=== PATIENT | male | born 1960 | race Caucasian/White ===

== ENCOUNTER → 2017-11-13 13:11 | Outpatient (CLI) | payer OTHER, SELFPAY ==
--- NOTE | 2017-11-13 | DI.US.S_ITS ---
PROCEDURE: US RENAL COMPLETE INDICATIONS: BLADDER NECK OBSTRUCTION TECHNIQUE: Real-time scanning was performed of the kidneys and bladder, with image documentation. COMPARISON: None. FINDINGS: Kidneys: Kidneys are normal in size. Right kidney measures 12.4 cm long; left kidney measures 14 cm long. Right renal cortical thickness is 1.5 cm; left renal cortical thickness is 1.7 cm. Renal cortical echotexture is normal. No hydronephrosis or nephrolithiasis. No suspicious solid mass lesions. 1 cm right renal cyst. Bladder: Pre-void bladder volume is 161 mL. Post-void residual is 4.0 mL. Pre-void images demonstrate no intraluminal masses or stones. On pre-void images, neither ureteral jets are noted with color Doppler interrogation. (Of note, ureteral jets may not be detectable in up to 25% of cases due to insufficient differences in specific gravity between ureteral and bladder urine). Miscellaneous: No free pelvic fluid. IMPRESSION: 1. 1 cm right renal cortical cyst otherwise kidneys are grossly normal in appearance. 2. No evidence for bladder outlet obstruction. Dictated by: Tobias Moura [facility] Interpreted: Yue Mcclain MD on 11/13/2017 at 14:50 Approved by: Yue Mcclain MD, PhD on 11/13/2017 at 15:58
== END ==
PROVIDERS: Family Provider Nutritionist; PCP Nutritionist; Visit Provider Nurse Practitioner Acute Care
DX: N32.0 Bladder-neck obstruction (principal); N28.1 Cyst of kidney, acquired
CPT/HCPCS: 76770

== ENCOUNTER 2020-03-15 16:53 | Emergency (ER) | payer OTHER, SELFPAY ==
[2020-03-15 17:01] VITALS: PULSE 72; RESP 24; TEMP 36.6; O2SAT 94; BMI 50.2
[2020-03-15 17:02] VITALS: PULSE 74; O2SAT 95
--- NOTE | 2020-03-15 17:05 | DI.RAD.S_ITS ---
PROCEDURE: XR CHEST 1V INDICATIONS: shortness of breath TECHNIQUE: One view of the chest was acquired. COMPARISON: [facility], , CHEST 2VW, 05/30/2013, 16:24. [facility], , CHEST 2 VIEW, 04/01/2012, 20:10. [facility], , CHEST 2 VIEW, 04/09/2014, 13:11. [facility], , CHEST 1 VIEW, 01/16/2017, 12:44. FINDINGS: Surgical changes and devices: None. Lungs and pleura: Low lung volumes are noted. This causes a crowded appearance to the lung markings and limits evaluation. Generalized interstitial prominence is seen. Mediastinum: Mediastinal contours appear normal. Heart size is moderately enlarged. Bones and chest wall: No suspicious bony lesions. Age-appropriate bony degenerative changes are seen. Overlying soft tissues appear unremarkable. IMPRESSION: Moderate cardiomegaly and interstitial prominence. Please correlate with patient presentation, physical examination findings, and laboratory values for congestive heart failure. Dictated by: Thanh Serrano M.D. on 03/15/2020 at 16:32 Approved by: Thanh Serrano M.D. on 03/15/2020 at 16:34
[2020-03-15 17:14] LABS: Add Manual Diff / Slide Review NO; Basophils Absolute Auto 100 /uL (0-100); Basophils Percent Auto 1.2 % (0-2); Eosinophils Absolute Auto 200 /uL (0-450); Eosinophils Percent Auto 2.5 % (2-4); Hematocrit 43.7 % (41-53); Hemoglobin 14.2 g/dL (13.5-17.5); Lymphocytes Absolute Auto 1200 /uL (1100-4500); Lymphocytes Percent Auto 14.6 % (25-40); Mean Corpuscular HGB Conc 32.5 % (30-36); Mean Corpuscular Hemoglobin 28.5 PG (26-34); Mean Corpuscular Volume 87.7 fL (80-100); Monocytes Absolute Auto 600 /uL (0-900); Monocytes Percent Auto 6.6 % (3-14); Neutrophils Absolute Auto 6200 /uL (1500-7000); Neutrophils Percent Auto 75.1 % (50-75); Platelet Count 240 X10^3/uL (150-400); Red Blood Cell Count 4.98 X10^6/uL (4.5-5.9); Red Cell Distribution Width 15.1 % (11.6-14.8); White Blood Cell Count 8.3 X10^3/uL (4.5-11.0)
[2020-03-15 17:39] LABS: INR 1.2 (0.9-1.3); Prothrombin Time 13.7 SECONDS (10.1-12.7)
[2020-03-15 17:42] LABS: PTT Partial Thromboplastin Tim 32 SECONDS (26.4-36.2)
[2020-03-15 17:44] LABS: Alanine Aminotransferase 44 IU/L (<50); Albumin Globulin Ratio 1.2 (1.0-2.8); Alkaline Phosphatase 141 U/L (38-126); Aspartate Aminotransferase 45 IU/L (17-59); BUN Creatinine Ratio 14.5 (6-22); Bilirubin Total 0.4 mg/dL (0.2-1.3); Blood Urea Nitrogen 33 mg/dL (9-20); Calcium 9.3 mg/dL (8.4-10.2); Carbon Dioxide 30 mmol/L (22-32); Chloride 103 mmol/L (98-107); Creatine Kinase 85 U/L (55-170); Estimated Glomerular Filt Rate 29.4 mL/min (>60); Globulin 3.3 g/dL (1.7-4.1); Glucose 228 mg/dL (80-110); HEMOLYSIS < 15 (0-50); Potassium 3.9 mmol/L (3.4-5.1); Sodium 137 mmol/L (137-145); Total Protein 7.3 g/dL (6.3-8.2)
--- NOTE | 2020-03-15 17:47 | ED_ITS ---
HPI - SOB/Dyspnea General Chief Complaint: Shortness of Breath/Dyspnea Stated Complaint: BILATERAL LOWER LEG / FEET SWELLING Time Seen by Provider: 03/15/20 17:05 Source: patient Mode of arrival: Ambulatory Limitations: no limitations History of Present Illness HPI Narrative: Patient is a 59-year-old male with history of congestive heart failure, hypertension who presents with increasing shortness of breath and lower extremity swelling. He says over the last week he has had increasing shortness of breath with exertion and he feels like his legs are much more swollen than normal. He says he takes Lasix 2 pills once a day he takes some at night. He called his doctor today who recommended he come to the ER for further evaluation. He denies any chest pain or heart palpitations. He has not had any fever or cough. He does not weigh himself daily he is unsure if he has any fluid retention. MD Complaint: shortness of breath Onset (ago): week(s) (1) Exacerbating factors: lying flat and exertion Known history of: congestive heart failure Related Data Home Medications Medication Instructions Recorded Confirmed allopurinol 100 mg PO DAILY 03/15/20 03/15/20 atenolol 50 mg PO DAILY 03/15/20 03/15/20 diltiazem HCl 240 mg PO DAILY 03/15/20 03/15/20 furosemide 80 mg PO DAILY 03/15/20 03/15/20 Allergies Allergy/AdvReac Type Severity Reaction Status Date / Time lisinopril [LISINOPRIL] Allergy Unknown COUGH Unverified 03/15/20 17:03 aspirin [ASPIRIN] AdvReac Severe IN ACUTE Unverified 03/15/20 17:03 RENAL FAILURE ibuprofen [From MOTRIN] AdvReac Severe IN ACUTE Unverified 03/15/20 17:03 RENAL Review of Systems Review of Systems Narrative: GENERAL: Denies chills, fatigue, malaise, fever, sweats, travel HEENT: Denies sinus pain, ear pain, sore throat, difficulty swallowing, neck pain RESPIRATORY: See HPI CARDIOVASCULAR: Denies chest pain, palpitations, orthopnea, edema GASTROINTESTINAL: Denies nausea, vomiting, abdominal pain, diarrhea, constipation, melena. : Denies dysuria, frequency, incontinence, hematuria, urinary retention, flank pain. MUSCULOSKELETAL: + edema see HPI. Denies weakness, joint pain, or bony pain SKIN: No rash, no erythema, no pruritus NEUROLOGIC: Denies weakness, dizziness, headache, numbness, change in speech, confusion PSYCHIATRIC: No concerning psychosocial issues. 12 point review of systems is negative except for those stated above and HPI Patient History Substance Use Type: does not use Exam Initial Vital Signs Initial Vital Signs: Vital Signs Temperature 97.8 F 03/15/20 17:01 Pulse Rate 72 03/15/20 17:01 Respiratory Rate 24 03/15/20 17:01 Pulse Oximetry 94 03/15/20 17:01 GENERAL: Overweight male and in no acute distress. HEENT: Head atraumatic,EOMI, pupils reactive, face symmetric, moist mucous membranes CARDIOVASCULAR: Regular rate and rhythm without murmurs, rubs or gallops. RESPIRATORY: Clear breath sounds bilaterally speaks in full sentences ABDOMEN: Soft, nontender. Normoactive bowel sounds all 4 quadrants. No guarding or rebound. EXTREMITIES: Normal range of motion, no clubbing or edema. Neurovascularly intact NEUROLOGICAL: Alert and oriented x4.Normal gait and speech. Cranial nerves II through XII grossly intact. SKIN: Warm, dry, no laceration, no petechiae, no rashes or lesions. Scores CHADS-VASc Congestive heart failure: yes Hypertension: yes Age 75 years or older: no Diabetes mellitus: no Stroke, TIA, or TE: no Vascular disease: no Age 65 to 74 years: yes Sex category (female): Male CHADS-VASc Score: 3 Course Orders Ordered: ED Orders 03/15/20 17:05 XR chest 1V Stat Complete Blood Count AUTO DIFF Stat Comprehensive Metabolic Panel Stat Lipase Stat NT-proBNP (BNP-Adult 18+) Stat Partial Thromboplastin Time Stat Prothrombin Time INR Stat Troponin & CK Cardiac Panel Stat EKG-12 Lead Stat Discontinued Medications Furosemide (Furosemide 100 Mg/10 Ml Vial) 80 mg IV NOW ONE Stop: 03/15/20 17:59 Last Admin: 03/15/20 18:09 Dose: 80 mg Documented by: BENIGNO Vital Signs Vital signs: Vital Signs - 8 hr 03/15/20 17:01 03/15/20 17:02 03/15/20 18:27 Temperature 97.8 F Pulse Rate 72 74 Respiratory Rate 24 Blood Pressure 172/98 H Pulse Oximetry 94 95 MDM - SOB/Dyspnea Lab Data Attestation: I reviewed the patient's lab results. Result diagrams: 03/15/20 17:05 03/15/20 17:05 Labs: Lab Results 03/15/20 03/15/20 03/15/20 Range/Units 17:05 17:05 17:05 WBC 8.3 (4.5-11.0) X10^3/uL RBC 4.98 (4.5-5.9) X10^6/uL Hgb 14.2 (13.5-17.5) g/dL Hct 43.7 (41-53) % MCV 87.7 (80-100) fL MCH 28.5 (26-34) PG MCHC 32.5 (30-36) % RDW 15.1 H (11.6-14.8) % Plt Count 240 (150-400) X10^3/uL Neut % (Auto) 75.1 H (50-75) % Lymph % (Auto) 14.6 L (25-40) % Cascade % (Auto) 6.6 (3-14) % Eos % (Auto) 2.5 (2-4) % Baso % (Auto) 1.2 (0-2) % Neut # (Auto) 6200 (3428-1076) /uL Lymph # (Auto) 1200 (9612-0211) /uL Cascade # (Auto) 600 (0-900) /uL Eos # (Auto) 200 (0-450) /uL Baso # (Auto) 100 (0-100) /uL PT 13.7 H (10.1-12.7) SECONDS INR 1.2 (0.9-1.3) APTT 32 (26.4-36.2) SECONDS Sodium 137 (137-145) mmol/L Potassium 3.9 (3.4-5.1) mmol/L Chloride 103 (98-107) mmol/L Carbon Dioxide 30 (22-32) mmol/L BUN 33 H (9-20) mg/dL Creatinine 2.28 H (0.66-1.25) mg/dL Estimated GFR 29.4 L (>60) mL/min BUN/Creatinine Ratio 14.5 (6-22) Glucose 228 H (80-110) mg/dL Calcium 9.3 (8.4-10.2) mg/dL Total Bilirubin 0.4 (0.2-1.3) mg/dL AST 45 (17-59) IU/L ALT 44 (<50) IU/L Alkaline Phosphatase 141 H (38-126) U/L Total Creatine Kinase 85 (55-170) U/L CK-MB (CK-2) TNP CK-MB (CK-2) Rel Index TNP Troponin I < 0.012 (0.01-0.034) ng/mL NT-Pro-B Natriuret Pep 2390 H (<125) pg/mL Total Protein 7.3 (6.3-8.2) g/dL Albumin 4.0 (3.5-5.0) g/dL Globulin 3.3 (1.7-4.1) g/dL Albumin/Globulin Ratio 1.2 (1.0-2.8) Lipase 330 H (23-300) U/L Imaging Data Chest x-ray: Radiologist's Impression: PROCEDURE: XR CHEST 1V INDICATIONS: shortness of breath TECHNIQUE: One view of the chest was acquired. COMPARISON: [facility], , CHEST 2VW, 05/30/2013, 16:24. [facility], CHEST 2 VIEW, 04/01/2012, 20:10. [facility], CHEST 2 VIEW, 04/09/2014, 13:11. [facility], CHEST 1 VIEW, 01/16/2017, 12:44. FINDINGS: Surgical changes and devices: None. Lungs and pleura: Low lung volumes are noted. This causes a crowded appearance to the lung markings and limits evaluation. Generalized interstitial prominence is seen. Mediastinum: Mediastinal contours appear normal. Heart size is moderately enlarged. Bones and chest wall: No suspicious bony lesions. Age-appropriate bony degenerative changes are seen. Overlying soft tissues appear unremarkable. IMPRESSION: Moderate cardiomegaly and interstitial prominence. Please correlate with patient presentation, physical examination findings, and laboratory values for c ongestive heart failure. Dictated by: Thanh Serrano M.D. on 03/15/2020 at 16:32 ECG Data Attestation: I personally reviewed and interpreted this ECG as follows: Prior ECG tracings: available for review Interpretation: Atrial fibrillation rate 73 similar to previous EKG MDM Narrative Medical decision making narrative: Patient is found to have elevated BNP increasing shortness of breath increasing lower extremity edema with CHF changes on x-ray. Likely CHF exacerbation though he has not been diagnosed with CHF. He is given a dose of 80 mg of Lasix and IV and urinated multiple times. He is not hypoxic. At this time he can follow up outpatient. EKG does show atrial fibrillation which is new since 2017. He is unfamiliar with diagnosis of atrial fibrillation. I do recommend that he take an aspirin for anticoagulation follow-up with primary care provider. Discharge Plan Departure Patient Disposition: Home Clinical Impression: Congestive heart failure Qualifiers: Heart failure type: other Qualified Code(s): I50.9 - Heart failure, unspecified Instructions: Atrial Fibrillation, DI for Heart Failure Activity Restrictions/Additional Instructions: *You have been diagnosed with congestive heart failure *What to do: Please weigh yourself every day and write it down seems until when you are starting to gain water weight. Limit your salt and processed food intake-this will lead to water retention. *Continue to take medications as directed -aspirin 81 mg once a day, you may require more medication than this but please discuss it with her primary care provider Increase Lasix 80mg twice a day for the next 3 days. Then return to your normal dose of 80mg. *Follow up with your primary care provider in 2-3 days *Return to ER if you should have increasing shortness of breath, chest pain lower extremity swelling or any new, worsening or concerning symptoms Prescriptions: No Action furosemide 40 mg tablet 80 mg PO DAILY RF: 0 diltiazem HCl 240 mg capsule,extended release 24 hr 240 mg PO DAILY RF: 0 allopurinol 100 mg Tablet 100 mg PO DAILY RF: 0 atenolol 50 mg tablet 50 mg PO DAILY RF: 0 Referrals: Mindi Whitt MD [Primary Care Provider] -
[2020-03-15 17:56] LABS: NT-proBNP (BNP-Adult 18+) 2390 pg/mL (<125); Troponin I < 0.012 ng/mL (0.01-0.034)
[2020-03-15 18:07] LABS: Lipase 330 U/L (23-300)
[2020-03-15] MEDS: FUROSEMIDE 100 MG/10 ML VIAL 80 MG IV (18:09)
[2020-03-15 18:27] VITALS: BP 172/98
[2020-03-15 19:33] VITALS: BP 169/94; PULSE 76; RESP 22; O2SAT 96
== END 2020-03-15 19:36 | disposition home or self-care (01) ==
PROVIDERS: Emergency Provider Emergency Medicine; Family Provider Nutritionist; PCP Nutritionist
DX: I50.9 Heart failure, unspecified (principal); I10 Essential (primary) hypertension; E66.3 Overweight; R06.02 Shortness of breath
CPT/HCPCS: 36415; 71045; 80053; 82550; 83690; 83880; 84484; 85025; 85610; 85730; 93005; 96374; 99283; 99284; J1940

== ENCOUNTER → 2020-09-22 15:13 | Outpatient (CLI) | payer MEDICARE, SELFPAY ==
[2020-09-22 15:22] LABS: Bacteria Urine None Seen
[2020-09-22 17:43] LABS: Appearance Urine UA CLEAR; Bilirubin Urine UA NEGATIVE (NEGATIVE); Color Urine UA YELLOW; Glucose Urine UA NEGATIVE (Negative); Ketones Urine UA NEGATIVE (NEGATIVE); Leukocyte Esterase Urine UA NEGATIVE (NEGATIVE); Nitrite Urine UA NEGATIVE (Negative); Occult Blood Urine UA NEGATIVE (Negative); Protein Urine UA 3+ (Negative); Specific Gravity Urine UA 1.025 (1.000-1.035); Urobilinogen Urine UA 0.2 E.U./dL (0.2)
[2020-09-22 17:56] LABS: Culture Indicated Urine Cult Not Indicated; Hyaline Casts Urine 5-10/LPF; RBC Urine 0-1/HPF (0-5/HPF); Squamous Epithelial Cell Urine 1-5 /HPF (0-5/HPF); WBC Urine 0-1/HPF (0-5/HPF)
== END ==
PROVIDERS: Family Provider Nutritionist; PCP Student in an Organized Health Care Education/Training Program; Referring Provider Student in an Organized Health Care Education/Training Program; Visit Provider Student in an Organized Health Care Education/Training Program
DX: R30.0 Dysuria (principal)
CPT/HCPCS: 81001

== ENCOUNTER → 2020-10-13 16:35 | Outpatient (CLI) | payer OTHER, MEDICARE, SELFPAY ==
[2020-10-13 18:08] LABS: BUN Creatinine Ratio 14.4 (6-22); Blood Urea Nitrogen 29 mg/dL (9-20); Calcium 9.9 mg/dL (8.4-10.2); Carbon Dioxide 27 mmol/L (22-32); Chloride 106 mmol/L (98-107); Estimated Glomerular Filt Rate 34.1 mL/min (>60); Glucose 185 mg/dL (80-110); HEMOLYSIS < 15 (0-50); Potassium 3.9 mmol/L (3.4-5.1); Sodium 139 mmol/L (137-145)
[2020-10-20 13:16] LABS: Testosterone % Fr + Wkly bound 29.9 % (9.0-46.0); Testosterone Fr+Wkly bound 43.1 ng/dL (40.0-250.0); Testosterone, Total 144.2 ng/dL (264.0-916.0)
== END ==
PROVIDERS: Family Provider Nutritionist; PCP Student in an Organized Health Care Education/Training Program; Referring Provider Student in an Organized Health Care Education/Training Program; Visit Provider Student in an Organized Health Care Education/Training Program
DX: R53.83 Other fatigue (principal); Z79.899 Other long term (current) drug therapy
CPT/HCPCS: 36415; 80048; 84403

== ENCOUNTER → 2020-10-20 08:03 | Outpatient (CLI) | payer MEDICARE, OTHER, SELFPAY ==
--- NOTE | 2020-10-20 08:05 | DI.ECHO.S_ITS ---
[facility]---------+ [facility] +---------+ : : [address] : [place] : : : : [id number] : : : : Phone: [phone] Echocardiogram Report + + :Name: YDUELKA CONRAD Study Date: 10/20/2020 Height: 70 in : :[facility] ReadingLocation: Weight: 309 lb : : Gender: Male BSA: 2.5 m2 : :: 1960 Age: 59 yrs BP: 165/111 mmHg: :Reason For Study: CONGESTIVE HEART FAILURE : :Ordering Physician: TERRI, : :RAH Performed By: Yolanda Wells : :Referring: RAH MURRAY : + + Interpretation Summary The ejection fraction is estimated to be 60-65%. There are no obvious focal wall motion abnormalities noted but poor endocardial definition reduces the sensitivity for the detection of such. There is no significant valvular heart disease. Procedure: A two-dimensional transthoracic echocardiogram with color flow and Doppler was performed in limited views only. The study quality was technically difficult. Comparison is made with the echocardiogram of 04/02/2012. The patient was in atrial fibrillation with heart rates between 77-94 bpm during the exam. Left Ventricle: The left ventricle is normal in size. There is mild concentric left ventricular hypertrophy. The ejection fraction is estimated to be 60-65%. There are no obvious focal wall motion abnormalities noted but poor endocardial definition reduces the sensitivity for the detection of such. Diastolic function could not be accurately assessed due to atrial fibrillation. Right Ventricle: The right ventricle is not well visualized but appears grossly normal in function. Atria: The left atrial size is normal. Right atrial size is normal. There is no Doppler evidence for an interatrial shunt. Mitral Valve: The mitral valve leaflets appear mildly thickened, but open well. There is mild mitral annular calcification. There is no mitral regurgitation noted. Aortic Valve: The aortic valve is grossly normal. There is no aortic valve stenosis. No aortic regurgitation is present. Tricuspid Valve: The tricuspid valve is not well visualized, but is grossly normal. No tricuspid regurgitation. Pulmonary artery pressures cannot be estimated because of the lack of a measurable TR jet velocity but the IVC suggests a CVP of around 3 mmHg. Pulmonic Valve: The pulmonic valve is not well seen, but is grossly normal. There is no pulmonic valvular regurgitation. Great Vessels: The aortic root is not well visualized but is probably normal size. The dimensions of the ascending aorta are normal. The IVC is of normal diameter and collapses greater than 50% with a sniff. This suggests a low right atrial pressure of 3 mm Hg. Pericardium/ Pleura There is no pericardial effusion. There is no pleural effusion. MMode/2D Measurements & Calculations LVIDd: 4.1 cm LVOT diam: 2.3 cm LVIDs: 3.0 cm asc Aorta Diam: 3.2 cm FS: 25.9 % Ao Arch Diam (Prox Trans): 2.8 cm IVSd: 1.3 cm LVPWd: 1.4 cm LV vasquez. diameter/BSA (cm/m^2): 1.6 LV sys. diameter/BSA (cm/m^2): 1.2 LA A2 area: 22.9 cm2 RA long axis: 5.3 cm LA A4 area: 28.6 cm2 RA area: 18.4 cm2 LA length (vol): 6.9 cm RA vol: 54.5 ml LA vol: 80.6 ml RA : 21.7 ml/m2 LA vol index: 32.1 ml/m2 IVC diam: 1.4 cm Doppler Measurements & Calculations Ao V2 max: 148.7 cm/sec LVOT Max Juan: 84.9 cm/sec Ao V2 mean: 115.4 cm/sec LV V1 max P.9 mmHg Ao max P.9 mmHg LV V1 VTI: 15.2 cm Ao mean P.7 mmHg JEANETTE(I,D): 2.5 cm2 Ao V2 VTI: 24.4 cm JEANETTE(V,D): 2.3 cm2 sev ratio: 0.62 JEANETTE indexed to BSA (cm^2/m^2): 1.00 MV E max juan: 86.1 cm/sec PA V2 max: 102.3 cm/sec MV A max juan: 2.1 cm/sec PA V2 mean: 67.7 cm/sec MV E/A: 40.5 PA mean P.1 mmHg Med Peak E' Juan: 7.7 cm/sec PA pr(Accel): 31.0 mmHg E/E' med: 11.2 Lat Peak E' Juan: 7.9 cm/sec E/E' lat: 10.8 E/e' average: 11.0 MV dec time: 0.19 sec SV(LVOT): 61.3 ml Reading Physician:10:02 AM
== END ==
PROVIDERS: Family Provider Nutritionist; PCP Student in an Organized Health Care Education/Training Program; Referring Provider Student in an Organized Health Care Education/Training Program; Visit Provider Student in an Organized Health Care Education/Training Program
DX: I50.9 Heart failure, unspecified (principal)
CPT/HCPCS: 93306

== ENCOUNTER 2020-12-06 10:39 | Emergency (ER) | payer MEDICARE, OTHER, SELFPAY ==
[2020-12-06 10:52] VITALS: BP 166/111; PULSE 94; RESP 20; TEMP 36.7; O2SAT 99; BMI 42.7
[2020-12-06 12:28] VITALS: PULSE 87; O2SAT 98
[2020-12-06 12:30] VITALS: PULSE 75; O2SAT 97
[2020-12-06 12:31] VITALS: BP 140/99; PULSE 74; O2SAT 97
[2020-12-06 13:00] VITALS: PULSE 84; O2SAT 97
[2020-12-06 13:01] VITALS: BP 183/107; PULSE 83; O2SAT 97
--- NOTE | 2020-12-09 14:42 | ED_ITS ---
HPI - Recheck/Abnormal Lab/Rx <Jacob Elizabeth PA-C - Last Filed: 12/09/20 14:57> General Chief Complaint: Recheck/Abnormal Lab/Rx Stated Complaint: 180/130 BP, Toe Nail Fungus Time Seen by Provider: 12/06/20 12:37 Source: patient Mode of arrival: Ambulatory Limitations: no limitations History of Present Illness HPI narrative: 60-year-old male with past medical history CHF with preserved ejection fraction, stage 3 chronic kidney disease, anxiety, hypertension presents to the ED for elevated blood pressure, toenail infection. [facility], had an elevated blood pressure reading with SBP in the 180s. Patient states he is compliant with his blood pressure medications. patient also states that he has had chronic toenail infection, for which he was treated sometime ago without resolution. Patient complains of pain in his toenails wiith pressure. patient denies fever, chills, chest pain, shortness of breath, cough, dysuria, abdominal pain, nausea, vomiting, lightheadedness, dizziness, syncope. Related Data Home Medications Medication Instructions Recorded Confirmed atenolol 50 mg tablet 50 mg PO DAILY 03/15/20 10/13/20 diltiazem HCl 240 mg capsule,24 240 mg PO DAILY 03/15/20 10/13/20 hr,extended release furosemide 40 mg tablet 80 mg PO DAILY 03/15/20 10/13/20 clobetasol 0.05 % topical ointment 1 applic TOPICAL BID g 10/13/20 10/13/20 fluconazole 100 mg tablet 100 mg PO QWEEK tab 10/13/20 10/13/20 Previous Rx's Medication Instructions Recorded testosterone cypionate 200 mg/mL 200 mg IM Q4W #10 ml 11/01/20 intramuscular oil allopurinol 100 mg tablet 100 mg PO DAILY #90 tab 11/14/20 apixaban 5 mg tablet (Eliquis) 5 mg PO BID #180 tab 11/14/20 metoprolol succinate 100 mg 100 mg PO DAILY #90 tab 11/18/20 tablet,extended release 24 hr terbinafine HCl 250 mg tablet 250 mg PO DAILY 84 Days #84 tab 12/06/20 Allergies Allergy/AdvReac Type Severity Reaction Status Date / Time hydrochlorothiazide Allergy Mild acute Verified 12/06/20 10:58 renal failure lisinopril [LISINOPRIL] Allergy Unknown COUGH Verified 12/06/20 10:58 aspirin [ASPIRIN] AdvReac Severe IN ACUTE Verified 12/06/20 10:58 RENAL FAILURE ibuprofen [From MOTRIN] AdvReac Severe IN ACUTE Verified 12/06/20 10:58 RENAL Review of Systems <Jacob Elizabeth PA-C - Last Filed: 12/09/20 14:57> Constitutional Constitutional: Denies chills, Denies fatigue, Denies fever(s), Denies frequent falls, Denies lethargy and Denies weakness Eyes Eyes: Denies change in vision, Denies eye discharge, Denies irritation and Denies loss of vision ENT Ears, Nose, Mouth, and Throat: Denies change in voice, Denies dizziness, Denies neck pain, Denies sore throat and Denies throat swelling Cardiovascular Cardiovascular: Denies chest pain, Denies irregular heart rhythm, Denies lightheadedness, Denies palpitations, Denies dyspnea, Denies dyspnea on exertion and Denies orthopnea Comments: Elevated BP reading Respiratory Respiratory: Denies cough, Denies dyspnea, Denies dyspnea on exertion and Denies wheezing Gastrointestinal Gastrointestinal: Denies abdominal pain, Denies change in bowel habits, Denies diarrhea, Denies nausea and Denies vomiting Musculoskeletal Musculoskeletal: Denies neck pain and Denies numbness Integumentary/Breasts Skin/Breast: Denies pruritus, Denies erythema, Denies rash and Denies wounds Comments: Bilateral toe nail infection, pain. Neurologic Neurologic: Denies behavioral changes, Denies confusion, Denies dizziness, Denies frequent falls, Denies loss of vision, Denies numbness and Denies weakness Psychiatric Psychiatric: Denies anxiety, Denies behavioral changes, Denies confusion, Denies depression, Denies homicidal ideation and Denies suicidal ideation Endocrine Endocrine: Denies fatigue, Denies flushing and Denies palpitations Hematologic/Lymphatic Hematologic/Lymphatic: Denies easy bruising Allergic/Immunologic Allergic/Immunologic: Denies urticaria, Denies throat swelling and Denies wheezing Patient History <Jacob Elizabeth PA-C - Last Filed: 12/09/20 14:57> Social History Smoking Status: Never smoker Smoking Status: Never smoker Substance Use Type: does not use Exam <Jacob Elizabeth PA-C - Last Filed: 12/09/20 14:57> Initial Vital Signs Initial Vital Signs: Vital Signs Temperature 98.1 F 12/06/20 10:52 Pulse Rate 94 H 12/06/20 10:52 Respiratory Rate 20 12/06/20 10:52 Blood Pressure 166/111 H 12/06/20 10:52 Pulse Oximetry 99 12/06/20 10:52 Const General: cooperative HENMT Head: normocephalic and atraumatic Ears: external ears normal and TM's normal bilaterally Nose: external nose normal and No nasal discharge Face and sinus: sinuses nontender, face symmetric, no sinus tenderness and No dry mucous membranes Mouth: oral mucosae normal and moist mucous membranes Teeth and gingiva: dentition normal Throat: tonsils normal and uvula midline Eyes General: appearance normal, both eyes and all related structures Eyelids: eyelids normal Conjunctivae: conjunctivae normal Sclera: sclerae normal Pupils: PERRL EOM: EOM intact bilaterally Neck Neck: normal visual inspection, trachea midline, No lymphadenopathy, No midline deformity and No JVD Lymphatic: No lymphedema Chest Chest: normal inspection of the chest Resp Effort & Inspection: normal respiratory effort, able to speak in complete sentences, no respiratory distress and no use of accessory muscles Auscultation: clear to auscultation bilaterally, no rales, no rhonchi and no wheezes Cardio Rate: regular rate Rhythm: regular rhythm Heart Sounds: no click, no gallops, no murmurs and no rubs Pulses: normal peripheral pulses GI Inspection: non-distended Palpation: soft, no hepatosplenomegaly, No guarding, No pulsatile mass and No tender Auscultation: normal bowel sounds Back/Spine/Pelvis Back: No CVA tenderness Cervical Spine: cervical ROM normal and No pain with cervical ROM Thoracic/Lumbar Spine: thoracic and lumbar spine normal to inspection Skin General: no rashes or lesions noted, No jaundice and No petechiae Other: Bilateral toenails appear yellow with mild tenderness to palpation of the nails. Appearance of toenails consistent with onychomycosis, without signs of superimposed bacterial infection. No dscharge, cellulitis. Neuro General: patient alert, patient oriented x3, gait normal and no focal motor deficits Speech: speech normal Extrem General: full ROM, no clubbing, cyanosis or edema, no pedal edema and no calf tenderness Psych Appearance: well kempt Mental Status: mental status grossly normal Attitude: cooperative Thought Content: normal and suicidality Judgment: judgment good <Zara Bill DO - Last Filed: 12/11/20 15:49> Initial Vital Signs Initial Vital Signs: Vital Signs Temperature 98.1 F 12/06/20 10:52 Pulse Rate 94 H 12/06/20 10:52 Respiratory Rate 20 12/06/20 10:52 Blood Pressure 166/111 H 12/06/20 10:52 Pulse Oximetry 99 12/06/20 10:52 MDM - Recheck/Abnormal Lab/Rx <Jacob Elizabeth PA-C - Last Filed: 12/09/20 14:57> [facility] Narrative Medical decision making narrative: 60-year-old male with past medical history CHF with preserved ejection fraction, stage 3 chronic kidney disease, anxiety, hypertension presents to the ED for elevated blood pressure, toenail infection. Patient's blood pressure 144 over 99 upon arrival to the ED. patient's SBP rises to the 180s when patient is visibly agitated during the ED course, returns to the 140s when calm. physical exam shows bilateral onychomycosis. discussed topical versus systemic medications with patient, patient prefers systemic medicine. Will prescribe Terbinafine. Will discharge home with PCP follow-up for hypertension. ED return precautions discussed, patient verbalized understanding. Discharge Plan Departure Patient Disposition: Home Clinical Impression: Onychomycosis of toenail Instructions: DI for Onychomycosis Activity Restrictions/Additional Instructions: You were evaluated for a toenail infection today in the ED. you most likely have a fungal infection of her toenails. You may take terbinafine 250 mg once daily for 12 weeks. Your blood pressure in the ED today was 140/99, for which treatment is not indication the ED today. Please follow-up with your primary care doctor. Return to the ED if you experience chest pain, shortness of breath. Prescriptions: New terbinafine HCl 250 mg tablet 250 mg PO DAILY 84 Days Qty: 84 RF: 0 No Action testosterone cypionate 200 mg/mL oil 200 mg IM Q4W Qty: 10 RF: 1 allopurinol 100 mg tablet 100 mg PO DAILY Qty: 90 RF: 3 Eliquis 5 mg tablet 5 mg PO BID Qty: 180 RF: 3 metoprolol succinate 100 mg tablet extended release 24 hr 100 mg PO DAILY Qty: 90 RF: 3 clobetasol 0.05 % ointment 1 applic topical BID RF: 0 fluconazole 100 mg tablet 100 mg PO QWEEK RF: 0 furosemide 40 mg tablet 80 mg PO DAILY RF: 0 diltiazem HCl 240 mg capsule,extended release 24 hr 240 mg PO DAILY RF: 0 atenolol 50 mg tablet 50 mg PO DAILY RF: 0 Referrals: Geoffrey Portillo MD [Primary Care Provider] - <Zara Bill DO - Last Filed: 12/11/20 15:49> Cosign ED Attending Cosignature Attestation: I was immediately available in the department for consultation. Documentation has been reviewed.
== END 2020-12-06 13:33 | disposition home or self-care (01) ==
PROVIDERS: Emergency Provider Student in an Organized Health Care Education/Training Program; Family Provider Nutritionist; PCP Student in an Organized Health Care Education/Training Program
DX: B35.1 Tinea unguium (principal); I10 Essential (primary) hypertension
CPT/HCPCS: 99281

== ENCOUNTER 2020-12-15 15:37 | Emergency (ER) | payer MEDICARE, OTHER, SELFPAY ==
[2020-12-15] VITALS (34 sets, daily range): BP systolic 143–212; BP diastolic 81–125; PULSE 75–91; RESP 4–34; TEMP 35.5; O2SAT 93–98; BMI 43.2
--- NOTE | 2020-12-15 15:49 | ED.GENADULT ---
HPI - General Adult General Chief complaint: Chest Pain Stated complaint: Chest Pain Time Seen by Provider: 12/15/20 15:48 Related Data Home Medications Medication Instructions Recorded Confirmed atenolol 50 mg tablet 50 mg PO DAILY 03/15/20 10/13/20 diltiazem HCl 240 mg capsule,24 240 mg PO DAILY 03/15/20 10/13/20 hr,extended release furosemide 40 mg tablet 80 mg PO DAILY 03/15/20 10/13/20 clobetasol 0.05 % topical ointment 1 applic TOPICAL BID g 10/13/20 10/13/20 fluconazole 100 mg tablet 100 mg PO QWEEK tab 10/13/20 10/13/20 Previous Rx's Medication Instructions Recorded testosterone cypionate 200 mg/mL 200 mg IM Q4W #10 ml 11/01/20 intramuscular oil allopurinol 100 mg tablet 100 mg PO DAILY #90 tab 11/14/20 apixaban 5 mg tablet (Eliquis) 5 mg PO BID #180 tab 11/14/20 metoprolol succinate 100 mg 100 mg PO DAILY #90 tab 11/18/20 tablet,extended release 24 hr terbinafine HCl 250 mg tablet 250 mg PO DAILY 84 Days #84 tab 12/06/20 clonidine HCl 0.2 mg tablet 0.2 mg PO TID PRN 10 Days #30 tab 12/15/20 Allergies Allergy/AdvReac Type Severity Reaction Status Date / Time hydrochlorothiazide Allergy Mild acute Verified 12/15/20 15:50 renal failure lisinopril [LISINOPRIL] Allergy Unknown COUGH Verified 12/15/20 15:50 aspirin [ASPIRIN] AdvReac Severe IN ACUTE Verified 12/15/20 15:50 RENAL FAILURE ibuprofen [From MOTRIN] AdvReac Severe IN ACUTE Verified 12/15/20 15:50 RENAL Patient History Medical History (Updated 12/15/20 @ 16:02 by Adali Stein MD) Anxiety Atrial fibrillation Chronic anxiety Chronic heart failure with preserved ejection fraction (HFpEF) Gouty arthritis Hypertension Lower extremity edema Morbid obesity [place] stain of face Stage 3b chronic kidney disease Tinea pedis Social History Smoking Status: Never smoker Smoking Status: Never smoker Substance Use Type: does not use Exam Initial Vital Signs Initial Vital Signs: Vital Signs Pulse Rate 81 12/15/20 15:49 Respiratory Rate 19 12/15/20 15:49 Pulse Oximetry 97 12/15/20 15:49 Course Orders Ordered: ED Orders 12/15/20 16:05 COVID19 - ADMIT ([employer] swab/PCR) Stat Complete Blood Count AUTO DIFF Stat Comprehensive Metabolic Panel Stat 12/15/20 16:06 Lipase Stat Magnesium Stat NT-proBNP (BNP-Adult 18+) Stat Troponin I Stat Urinalysis and Microscopic Stat Vital Signs Vital signs: Vital Signs - 8 hr 12/15/20 15:49 12/15/20 15:51 12/15/20 16:00 Temperature 95.9 F L Pulse Rate 81 75 76 Respiratory Rate 19 20 22 Blood Pressure 201/124 H 198/116 H Pulse Oximetry 97 98 96 Discharge Plan Departure Prescriptions: No Action testosterone cypionate 200 mg/mL oil 200 mg IM Q4W Qty: 10 RF: 1 allopurinol 100 mg tablet 100 mg PO DAILY Qty: 90 RF: 3 Eliquis 5 mg tablet 5 mg PO BID Qty: 180 RF: 3 metoprolol succinate 100 mg tablet extended release 24 hr 100 mg PO DAILY Qty: 90 RF: 3 clonidine HCl 0.2 mg tablet 0.2 mg PO TID PRN (Reason: hypertensive emergency) 10 Days Qty: 30 RF: 0 clobetasol 0.05 % ointment 1 applic topical BID RF: 0 fluconazole 100 mg tablet 100 mg PO QWEEK RF: 0 furosemide 40 mg tablet 80 mg PO DAILY RF: 0 diltiazem HCl 240 mg capsule,extended release 24 hr 240 mg PO DAILY RF: 0 atenolol 50 mg tablet 50 mg PO DAILY RF: 0 terbinafine HCl 250 mg tablet 250 mg PO DAILY 84 Days Qty: 84 RF: 0 Referrals: Geoffrey Portillo MD [Primary Care Provider] -
--- NOTE | 2020-12-15 15:56 | ED_ITS ---
HPI - General Adult <Adali Stein MD - Last Filed: 12/17/20 02:43> General Chief complaint: Chest Pain Stated complaint: Chest Pain Time Seen by Provider: 12/15/20 15:48 Source: patient Mode of arrival: EMS History of Present Illness HPI narrative: 60-year-old gentleman with a history of atrial fibrillation cu rrently anticoagulated on apixaban, recurrent gout, lower extremity edema, morbid obesity, hypertension, hypogonadism, multiple dermatologic issues presents with 4-5 days of chest pain and in the last number of days severe sharp stabbing ripping pain through the center of his chest to the left shoulder with severe diaphoresis in the ambulance on the way to the emergency department. He denies any recent fevers, cough, chills, constipation, vomiting, diarrhea, headache. He does report a 60 lb weight loss over the last 6 months with significant effort on his part. States he has been simply pain attention to what he is eating and weighing himself daily. Related Data Home Medications Medication Instructions Recorded Confirmed diltiazem HCl 240 mg capsule,24 240 mg PO DAILY 03/15/20 10/13/20 hr,extended release furosemide 40 mg tablet 80 mg PO DAILY 03/15/20 10/13/20 clobetasol 0.05 % topical ointment 1 applic TOPICAL BID g 10/13/20 10/13/20 fluconazole 100 mg tablet 100 mg PO QWEEK tab 10/13/20 10/13/20 Previous Rx's Medication Instructions Recorded testosterone cypionate 200 mg/mL 200 mg IM Q4W #10 ml 11/01/20 intramuscular oil allopurinol 100 mg tablet 100 mg PO DAILY #90 tab 11/14/20 apixaban 5 mg tablet (Eliquis) 5 mg PO BID #180 tab 11/14/20 metoprolol succinate 100 mg 100 mg PO DAILY #90 tab 11/18/20 tablet,extended release 24 hr terbinafine HCl 250 mg tablet 250 mg PO DAILY 84 Days #84 tab 12/06/20 clonidine HCl 0.2 mg tablet 0.2 mg PO TID PRN 10 Days #30 tab 12/15/20 Allergies Allergy/AdvReac Type Severity Reaction Status Date / Time hydrochlorothiazide Allergy Mild acute Verified 12/15/20 15:50 renal failure lisinopril [LISINOPRIL] Allergy Unknown COUGH Verified 12/15/20 15:50 aspirin [ASPIRIN] AdvReac Severe IN ACUTE Verified 12/15/20 15:50 RENAL FAILURE ibuprofen [From MOTRIN] AdvReac Severe IN ACUTE Verified 12/15/20 15:50 RENAL Review of Systems <Adali Stein MD - Last Filed: 12/17/20 02:43> Review of Systems Narrative: Remainder of complete review of systems is otherwise unremarkable except for that included in the HPI. Patient History <Adali Stien MD - Last Filed: 12/17/20 02:43> Medical History (Updated 12/15/20 @ 18:15 by Adali Stein MD) Anxiety Atrial fibrillation Chronic anxiety Chronic heart failure with preserved ejection fraction (HFpEF) Gouty arthritis Hypertension Lower extremity edema Morbid obesity Port-wine stain of face Stage 3b chronic kidney disease Tinea pedis Social History Smoking Status: Never smoker Smoking Status: Never smoker Substance Use Type: does not use Exam <Adali Stein MD - Last Filed: 12/17/20 02:43> Narrative Exam Narrative: General: Morbidly obese, pale mildly diaphoretic generally ill- appearing but Able to give a complete and coherent history. HEENT: Moist mucous membranes, normal sclera with reactive pupils, Neck: No JVD, supple Respiratory: Lungs are clear to auscultation, no wheezing no rales no rhonchi. Full and symmetrical air movement Cardiac: Irregular rate and rhythm, no murmurs no bruits Chest: Tenderness along the left sternal border and with deep breathing Abdomen: Soft, nontender, good bowel tones, no flank pain Skin: Pale, diaphoretic, multiple approximately 1 cm in diameter areas of erythema, large port wine stain over the side of his face and ear, hemosiderin deposit lower extremities Neurologic: Grossly neurologically intact with no obvious asymmetries or abnormalities Extremities: No trauma, well perfused Psych: Cooperative, appropriate insight and affect Initial Vital Signs Initial Vital Signs: Vital Signs Pulse Rate 81 12/15/20 15:49 Respiratory Rate 19 12/15/20 15:49 Pulse Oximetry 97 12/15/20 15:49 <Connor Zhang DO - Last Filed: 12/16/20 02:44> Initial Vital Signs Initial Vital Signs: Vital Signs Pulse Rate 81 12/15/20 15:49 Respiratory Rate 19 12/15/20 15:49 Pulse Oximetry 97 12/15/20 15:49 Course <Adali Stein MD - Last Filed: 12/17/20 02:43> Orders Ordered: Discontinued Medications Acetaminophen (Acetaminophen 325 Mg Tablet) 650 mg PO Q6HR PRN PRN Reason: Fever Amlodipine Besylate (Amlodipine 5 Mg Tablet) 10 mg PO NOW ONE Stop: 12/15/20 18:43 Last Admin: 12/15/20 18:55 Dose: 10 mg Documented by: KARI Apixaban (Apixaban 5 Mg Tablet) 5 mg PO BID EUSEBIO Last Admin: 12/15/20 22:15 Dose: 5 mg Documented by: KARI Aspirin (Aspirin Ec 325 Mg Tablet) 325 mg PO NOW ONE Stop: 12/15/20 19:51 Last Admin: 12/15/20 20:10 Dose: 325 mg Documented by: KARI Aspirin (Aspirin Ec 81 Mg Tablet) 81 mg PO DAILY EUSEBIO Nicardipine HCl 25 mg/ Sodium (Chloride) 250 mls @ 50 mls/hr IV TITRATE EUSEBIO; Protocol Last Titration: 12/15/20 18:20 Dose: 0 mg/hr, 0 mls/hr Documented by: Titration: 12/15/20 16:50 Dose: 15 mg/hr, 150 mls/hr Documented by: Titration: 12/15/20 16:35 Dose: 10 mg/hr, 100 mls/hr Documented by: Admin: 12/15/20 16:18 Dose: 5 mg/hr, 50 mls/hr Documented by: SIMON Nicardipine HCl 25 mg/ Sodium (Chloride) 250 mls @ 50 mls/hr IV TITRATE EUSEBIO; Protocol Last Titration: 12/15/20 21:58 Dose: 0 mg/hr, 0 mls/hr Documented by: Titration: 12/15/20 20:23 Dose: 5 mg/hr, 50 mls/hr Documented by: Admin: 12/15/20 18:20 Dose: 10 mg/hr, 100 mls/hr Documented by: KARI Lactated Ringer's (Lactated Ringers) 1,000 mls @ 60 mls/hr IV CONT EUSEBIO Last Infusion: 12/16/20 02:22 Dose: 0 mls/hr Documented by: Admin: 12/15/20 21:59 Dose: 60 mls/hr Documented by: KARI Labetalol HCl (Labetalol 20 Mg/4 Ml Syringe) 20 mg IV NOW ONE Stop: 12/16/20 00:05 Last Admin: 12/16/20 00:08 Dose: 15 mg Documented by: BHANU Metoprolol Succinate (Metoprolol Er 50 Mg Tablet) 100 mg PO NOW ONE Stop: 12/15/20 18:43 Last Admin: 12/15/20 18:55 Dose: 100 mg Documented by: KARI Morphine Sulfate (Morphine 2 Mg/Ml Inj) 2 mg IV Q5MIN PRN PRN Reason: Chest Pain Naloxone HCl (Naloxone 0.4 Mg/Ml Vial) 0.2 mg IV Q2MIN PRN PRN Reason: Opiate Reversal Naloxone HCl (Naloxone 0.4 Mg/Ml Vial) 0.2 mg IV Q2MIN PRN PRN Reason: Opiate Reversal Nitroglycerin (Nitroglycerin 0.4 Mg Sl Tab) 0.4 mg SL [id number] PRN PRN Reason: Chest Pain Vital Signs Vital signs: Vital Signs - 8 hr 12/15/20 18:45 12/15/20 19:00 12/15/20 19:15 Pulse Rate 86 87 88 Respiratory Rate 24 4 L 21 Blood Pressure 152/89 H 154/85 H 149/86 H Pulse Oximetry 96 95 94 12/15/20 19:30 12/15/20 19:45 12/15/20 20:00 Pulse Rate 86 79 78 Respiratory Rate 20 23 21 Blood Pressure 146/90 H 155/81 H 143/83 H Pulse Oximetry 94 95 93 12/15/20 20:15 12/15/20 20:30 12/15/20 20:45 Pulse Rate 84 88 77 Respiratory Rate 16 34 H 24 Blood Pressure 152/81 H 162/84 H 152/82 H Pulse Oximetry 96 95 94 12/15/20 21:00 12/15/20 21:15 12/15/20 21:30 Pulse Rate 78 80 81 Respiratory Rate 23 18 21 Blood Pressure 146/94 H 154/94 H 154/92 H Pulse Oximetry 95 94 95 12/15/20 21:45 12/15/20 22:00 12/15/20 22:15 Pulse Rate 86 79 82 Respiratory Rate 33 H 22 26 H Blood Pressure 146/89 H 147/86 H 153/82 H Pulse Oximetry 96 93 94 12/15/20 22:30 12/15/20 22:45 12/15/20 23:39 Pulse Rate 82 82 87 Respiratory Rate 30 H 20 23 Blood Pressure 160/91 H 160/103 H Pulse Oximetry 94 94 93 12/15/20 23:45 12/16/20 00:00 12/16/20 00:08 Pulse Rate 80 82 86 Respiratory Rate 26 H 22 Blood Pressure 190/103 H 183/107 H 190/103 H Pulse Oximetry 93 93 12/16/20 00:15 12/16/20 00:18 12/16/20 00:22 Pulse Rate 83 83 88 Respiratory Rate 16 21 22 Blood Pressure 155/93 H 170/96 H 149/89 H Pulse Oximetry 95 95 94 12/16/20 00:30 12/16/20 00:45 12/16/20 01:00 Pulse Rate 86 83 84 Respiratory Rate 23 32 H 25 H Blood Pressure 148/101 H 151/99 H 165/96 H Pulse Oximetry 93 93 93 12/16/20 01:04 12/16/20 01:15 12/16/20 01:30 Pulse Rate 79 79 82 Respiratory Rate 29 H 26 H Blood Pressure 165/96 H 167/99 H 163/100 H Pulse Oximetry 93 92 12/16/20 01:45 12/16/20 02:00 12/16/20 02:15 Pulse Rate 83 89 89 Respiratory Rate 23 27 H Blood Pressure 163/95 H 177/102 H 165/97 H Pulse Oximetry 93 96 95 <Connor Zhang, DO - Last Filed: 12/16/20 02:44> Course Course Narrative: Patient received in sign-out. I performed an independent history and physical exam. Patient has responded nicely to above-stated therapies for hypertension. His symptoms are resolved. However, his troponin continues or eyes and is now 0.893. I discussed the case with cardiology (Farshad) and hospitalist and we share the opinion that patient will need transfer to a facility with [employer]. Orders Ordered: Discontinued Medications Acetaminophen (Acetaminophen 325 Mg Tablet) 650 mg PO Q6HR PRN PRN Reason: Fever Amlodipine Besylate (Amlodipine 5 Mg Tablet) 10 mg PO NOW ONE Stop: 12/15/20 18:43 Last Admin: 12/15/20 18:55 Dose: 10 mg Documented by: KARI Apixaban (Apixaban 5 Mg Tablet) 5 mg PO BID EUSEBIO Last Admin: 12/15/20 22:15 Dose: 5 mg Documented by: KARI Aspirin (Aspirin Ec 325 Mg Tablet) 325 mg PO NOW ONE Stop: 12/15/20 19:51 Last Admin: 12/15/20 20:10 Dose: 325 mg Documented by: KARI Aspirin (Aspirin Ec 81 Mg Tablet) 81 mg PO DAILY EUSEBIO Nicardipine HCl 25 mg/ Sodium (Chloride) 250 mls @ 50 mls/hr IV TITRATE EUSEBIO; Protocol Last Titration: 12/15/20 18:20 Dose: 0 mg/hr, 0 mls/hr Documented by: Titration: 12/15/20 16:50 Dose: 15 mg/hr, 150 mls/hr Documented by: Titration: 12/15/20 16:35 Dose: 10 mg/hr, 100 mls/hr Documented by: Admin: 12/15/20 16:18 Dose: 5 mg/hr, 50 mls/hr Documented by: SIMON Nicardipine HCl 25 mg/ Sodium (Chloride) 250 mls @ 50 mls/hr IV TITRATE EUSEBIO; Protocol Last Titration: 12/15/20 21:58 Dose: 0 mg/hr, 0 mls/hr Documented by: Titration: 12/15/20 20:23 Dose: 5 mg/hr, 50 mls/hr Documented by: Admin: 12/15/20 18:20 Dose: 10 mg/hr, 100 mls/hr Documented by: KARI Lactated Ringer's (Lactated Ringers) 1,000 mls @ 60 mls/hr IV CONT EUSEBIO Last Infusion: 12/16/20 02:22 Dose: 0 mls/hr Documented by: Admin: 12/15/20 21:59 Dose: 60 mls/hr Documented by: KARI Labetalol HCl (Labetalol 20 Mg/4 Ml Syringe) 20 mg IV NOW ONE Stop: 12/16/20 00:05 Last Admin: 12/16/20 00:08 Dose: 15 mg Documented by: BHANU Metoprolol Succinate (Metoprolol Er 50 Mg Tablet) 100 mg PO NOW ONE Stop: 12/15/20 18:43 Last Admin: 12/15/20 18:55 Dose: 100 mg Documented by: KARI Morphine Sulfate (Morphine 2 Mg/Ml Inj) 2 mg IV Q5MIN PRN PRN Reason: Chest Pain Naloxone HCl (Naloxone 0.4 Mg/Ml Vial) 0.2 mg IV Q2MIN PRN PRN Reason: Opiate Reversal Naloxone HCl (Naloxone 0.4 Mg/Ml Vial) 0.2 mg IV Q2MIN PRN PRN Reason: Opiate Reversal Nitroglycerin (Nitroglycerin 0.4 Mg Sl Tab) 0.4 mg SL [id number] PRN PRN Reason: Chest Pain Consultations Consultation #1: discussed with cardiology after third troponin. Recommends transfer given NSTEMI, not likely related directly to HTN at this point. Hong mmends NPO. Hold eliquis, initiate heparin at time of next scheduled dose of eliquis. Consultation #2: calls to [facility] no beds call to [place], no beds call to [facility], no beds call to , no beds call to [facility], no beds call to , no beds call to [place] [facility]. Working on placement for . Vital Signs Vital signs: Vital Signs - 8 hr 12/15/20 18:45 12/15/20 19:00 12/15/20 19:15 Pulse Rate 86 87 88 Respiratory Rate 24 4 L 21 Blood Pressure 152/89 H 154/85 H 149/86 H Pulse Oximetry 96 95 94 12/15/20 19:30 12/15/20 19:45 12/15/20 20:00 Pulse Rate 86 79 78 Respiratory Rate 20 23 21 Blood Pressure 146/90 H 155/81 H 143/83 H Pulse Oximetry 94 95 93 12/15/20 20:15 12/15/20 20:30 12/15/20 20:45 Pulse Rate 84 88 77 Respiratory Rate 16 34 H 24 Blood Pressure 152/81 H 162/84 H 152/82 H Pulse Oximetry 96 95 94 12/15/20 21:00 12/15/20 21:15 12/15/20 21:30 Pulse Rate 78 80 81 Respiratory Rate 23 18 21 Blood Pressure 146/94 H 154/94 H 154/92 H Pulse Oximetry 95 94 95 12/15/20 21:45 12/15/20 22:00 12/15/20 22:15 Pulse Rate 86 79 82 Respiratory Rate 33 H 22 26 H Blood Pressure 146/89 H 147/86 H 153/82 H Pulse Oximetry 96 93 94 12/15/20 22:30 12/15/20 22:45 12/15/20 23:39 Pulse Rate 82 82 87 Respiratory Rate 30 H 20 23 Blood Pressure 160/91 H 160/103 H Pulse Oximetry 94 94 93 12/15/20 23:45 12/16/20 00:00 12/16/20 00:08 Pulse Rate 80 82 86 Respiratory Rate 26 H 22 Blood Pressure 190/103 H 183/107 H 190/103 H Pulse Oximetry 93 93 12/16/20 00:15 12/16/20 00:18 12/16/20 00:22 Pulse Rate 83 83 88 Respiratory Rate 16 21 22 Blood Pressure 155/93 H 170/96 H 149/89 H Pulse Oximetry 95 95 94 12/16/20 00:30 12/16/20 00:45 12/16/20 01:00 Pulse Rate 86 83 84 Respiratory Rate 23 32 H 25 H Blood Pressure 148/101 H 151/99 H 165/96 H Pulse Oximetry 93 93 93 12/16/20 01:04 12/16/20 01:15 12/16/20 01:30 Pulse Rate 79 79 82 Respiratory Rate 29 H 26 H Blood Pressure 165/96 H 167/99 H 163/100 H Pulse Oximetry 93 92 12/16/20 01:45 12/16/20 02:00 12/16/20 02:15 Pulse Rate 83 89 89 Respiratory Rate 23 27 H Blood Pressure 163/95 H 177/102 H 165/97 H Pulse Oximetry 93 96 95 Medical Decision Making <Adali Stein MD - Last Filed: 12/17/20 02:43> Lab Data Result diagrams: 12/15/20 15:42 12/15/20 15:42 Labs: Lab Results 12/15/20 12/15/20 12/15/20 Range/Units 15:42 15:42 15:42 WBC 9.3 (4.5-11.0) X10^3/uL RBC 5.29 (4.5-5.9) X10^6/uL Hgb 15.1 (13.5-17.5) g/dL Hct 47.2 (41-53) % MCV 89.2 (80-100) fL MCH 28.6 (26-34) PG MCHC 32.0 (30-36) % RDW 15.2 H (11.6-14.8) % Plt Count 234 (150-400) X10^3/uL Neut % (Auto) 76.5 H (50-75) % Lymph % (Auto) 13.5 L (25-40) % [place] % (Auto) 7.6 (3-14) % Eos % (Auto) 1.7 L (2-4) % Baso % (Auto) 0.7 (0-2) % Neut # (Auto) 7100 H (9792-2775) /uL Lymph # (Auto) 1200 (8586-7552) /uL [place] # (Auto) 700 (0-900) /uL Eos # (Auto) 200 (0-450) /uL Baso # (Auto) 100 (0-100) /uL Sodium 140 (137-145) mmol/L Potassium 4.4 (3.4-5.1) mmol/L Chloride 105 (98-107) mmol/L Carbon Dioxide 34 H (22-32) mmol/L BUN 39 H (9-20) mg/dL Creatinine 2.23 H (0.66-1.25) mg/dL Estimated GFR 30.1 L (>60) mL/min BUN/Creatinine Ratio 17.5 (6-22) Glucose 154 H (80-110) mg/dL Calcium 9.6 (8.4-10.2) mg/dL Magnesium 2.4 H (1.6-2.3) mg/dL Total Bilirubin 0.7 (0.2-1.3) mg/dL AST 39 (17-59) IU/L ALT 21 (<50) IU/L Alkaline Phosphatase 108 (38-126) U/L Troponin I 0.135 H* (0.01-0.034) ng/mL NT-Pro-B Natriuret Pep 1280 H (<125) pg/mL Total Protein 7.1 (6.3-8.2) g/dL Albumin 3.9 (3.5-5.0) g/dL Globulin 3.2 (1.7-4.1) g/dL Albumin/Globulin Ratio 1.2 (1.0-2.8) Triglycerides (35-150) mg/dL Cholesterol (140-199) mg/dL LDL Cholesterol, Calc (<100) mg/dL HDL Cholesterol (40-60) mg/dL Lipase 348 H (23-300) U/L Urine Color Urine Appearance Urine pH (4.5-8.0) Ur Specific [place] (1.000-1.035) Urine Protein (Negative) Urine Glucose (UA) (Negative) g/dL Urine Ketones (NEGATIVE) Urine Occult Blood (Negative) Urine Nitrate (Negative) Urine Bilirubin (NEGATIVE) Urine Urobilinogen (0.2) E.U./dL Ur Leukocyte Esterase (NEGATIVE) Urine RBC (0-5/HPF) Urine WBC (0-5/HPF) Ur Squamous Epith Cells (0-5/HPF) Urine Bacteria (None) Hyaline Casts (None) Granular Casts (None) Urine Sperm Ur Culture Indicated? SARS-CoV-2 (PCR) (Negative) 12/15/20 12/15/20 12/15/20 Range/Units 16:25 18:21 20:41 WBC (4.5-11.0) X10^3/uL RBC (4.5-5.9) X10^6/uL Hgb (13.5-17.5) g/dL Hct (41-53) % MCV (80-100) fL MCH (26-34) PG MCHC (30-36) % RDW (11.6-14.8) % Plt Count (150-400) X10^3/uL Neut % (Auto) (50-75) % Lymph % (Auto) (25-40) % [place] % (Auto) (3-14) % Eos % (Auto) (2-4) % Baso % (Auto) (0-2) % Neut # (Auto) (3670-7084) /uL Lymph # (Auto) (9222-1544) /uL [place] # (Auto) (0-900) /uL Eos # (Auto) (0-450) /uL Baso # (Auto) (0-100) /uL Sodium (137-145) mmol/L Potassium (3.4-5.1) mmol/L Chloride (98-107) mmol/L Carbon Dioxide (22-32) mmol/L BUN (9-20) mg/dL Creatinine (0.66-1.25) mg/dL Estimated GFR (>60) mL/min BUN/Creatinine Ratio (6-22) Glucose (80-110) mg/dL Calcium (8.4-10.2) mg/dL Magnesium (1.6-2.3) mg/dL Total Bilirubin (0.2-1.3) mg/dL AST (17-59) IU/L ALT (<50) IU/L Alkaline Phosphatase (38-126) U/L Troponin I 0.260 H* (0.01-0.034) ng/mL NT-Pro-B Natriuret Pep (<125) pg/mL Total Protein (6.3-8.2) g/dL Albumin (3.5-5.0) g/dL Globulin (1.7-4.1) g/dL Albumin/Globulin Ratio (1.0-2.8) Triglycerides 146 (35-150) mg/dL Cholesterol 268 H (140-199) mg/dL LDL Cholesterol, Calc 179 H (<100) mg/dL HDL Cholesterol 60 (40-60) mg/dL Lipase (23-300) U/L Urine Color Urine Appearance Urine pH (4.5-8.0) Ur Specific [place] (1.000-1.035) Urine Protein (Negative) Urine Glucose (UA) (Negative) g/dL Urine Ketones (NEGATIVE) Urine Occult Blood (Negative) Urine Nitrate (Negative) Urine Bilirubin (NEGATIVE) Urine Urobilinogen (0.2) E.U./dL Ur Leukocyte Esterase (NEGATIVE) Urine RBC (0-5/HPF) Urine WBC (0-5/HPF) Ur Squamous Epith Cells (0-5/HPF) Urine Bacteria (None) Hyaline Casts (None) Granular Casts (None) Urine Sperm Ur Culture Indicated? SARS-CoV-2 (PCR) Negative (Negative) 12/15/20 12/15/20 Range/Units 20:41 21:56 WBC (4.5-11.0) X10^3/uL RBC (4.5-5.9) X10^6/uL Hgb (13.5-17.5) g/dL Hct (41-53) % MCV (80-100) fL MCH (26-34) PG MCHC (30-36) % RDW (11.6-14.8) % Plt Count (150-400) X10^3/uL Neut % (Auto) (50-75) % Lymph % (Auto) (25-40) % [place] % (Auto) (3-14) % Eos % (Auto) (2-4) % Baso % (Auto) (0-2) % Neut # (Auto) (9315-6269) /uL Lymph # (Auto) (9920-3976) /uL [place] # (Auto) (0-900) /uL Eos # (Auto) (0-450) /uL Baso # (Auto) (0-100) /uL Sodium (137-145) mmol/L Potassium (3.4-5.1) mmol/L Chloride (98-107) mmol/L Carbon Dioxide (22-32) mmol/L BUN (9-20) mg/dL Creatinine (0.66-1.25) mg/dL Estimated GFR (>60) mL/min BUN/Creatinine Ratio (6-22) Glucose (80-110) mg/dL Calcium (8.4-10.2) mg/dL Magnesium (1.6-2.3) mg/dL Total Bilirubin (0.2-1.3) mg/dL AST (17-59) IU/L ALT (<50) IU/L Alkaline Phosphatase (38-126) U/L Troponin I 0.893 H* (0.01-0.034) ng/mL NT-Pro-B Natriuret Pep (<125) pg/mL Total Protein (6.3-8.2) g/dL Albumin (3.5-5.0) g/dL Globulin (1.7-4.1) g/dL Albumin/Globulin Ratio (1.0-2.8) Triglycerides (35-150) mg/dL Cholesterol (140-199) mg/dL LDL Cholesterol, Calc (<100) mg/dL HDL Cholesterol (40-60) mg/dL Lipase (23-300) U/L Urine Color Yellow Urine Appearance Clear Urine pH 5.0 (4.5-8.0) Ur Specific [place] 1.015 (1.000-1.035) Urine Protein 3+ H (Negative) Urine Glucose (UA) Negative (Negative) g/dL Urine Ketones Negative (NEGATIVE) Urine Occult Blood Trace-lysed (Negative) Urine Nitrate Negative (Negative) Urine Bilirubin Negative (NEGATIVE) Urine Urobilinogen 0.2 (0.2) E.U./dL Ur Leukocyte Esterase Negative (NEGATIVE) Urine RBC 0-1/hpf (0-5/HPF) Urine WBC 0-1/hpf (0-5/HPF) Ur Squamous Epith Cells 0-1 /hpf (0-5/HPF) Urine Bacteria None seen (None) Hyaline Casts 1-5/lpf (None) Granular Casts 0-1/lpf (None) Urine Sperm Few Ur Culture Indicated? Cult not indicated SARS-CoV-2 (PCR) (Negative) Imaging Data CTA chest abdomen pelvis: Radiologist's Impression: FINDINGS: Image quality: Excellent. AORTA: The thoracoabdominal aorta is within normal limits with no evidence of dissection, aneurysm, nor significant stenosis. CHEST: Lungs and pleura: No acute airspace opacities. No pleural effusions or pneumothorax. Central and peripheral airways are patent and normal in caliber. Mediastinum: Heart size is normal. Mild calcification of the coronary vasculature. No pericardial effusion. No mediastinal or hilar adenopathy by size criteria. Central pulmonary arteries are normal in size. Esophagus is normal in caliber. No hiatal hernias. Bones and chest wall: No axillary adenopathy by size criteria. Thyroid gland is grossly unremarkable . No suspicious bony lesions. No vertebral body compression fractures. ABDOMEN: Vasculature: Celiac trunk and mesenteric arteries are patent. Renal arteries are also patent. Solid organs: Liver is normal in size and enhancement. Gallbladder is within normal limits . Biliary system is non dilated. Pancreas enhances normally. Spleen is normal in size and enhancement. No adrenal nodules. Moderate bilateral renal scarring is present. Both kidneys are otherwise normal in size and enhancement, without hydronephrosis. Peritoneum and bowel: Normal appendix. There is a small amount of free fluid within the right hemipelvis anteriorly measuring roughly 9 cm. Small amount of fluid within the left hemiabdomen measuring roughly 7 cm is present. Bowel loops are normal in caliber and wall thickness. Nodes and vessels: No retroperitoneal or mesenteric adenopathy by size criteria. Inferior vena cava is normal in morphology. Miscellaneous: No ventral hernias. PELVIS: Genitourinary: Bladder wall thickness is normal. Miscellaneous: No inguinal hernias or adenopathy. No ventral hernias. Bones: No suspicious bony lesions. No vertebral body compression fractures. IMPRESSION: 1. Negative evaluation of the aorta. 2. Normal appendix. 3. Small amount of fluid within the right pelvis and left abdomen. Differential considerations include inflammation, infection, and underlying neoplasm. Chronic fluid collections could produce a similar appearance. 4. Coronary artery disease. Dictated by: Anson Barber M.D. on 12/15/2020 at 16:51 ECG Data Interpretation: Atrial fibrillation at a rate of [address] T wave abnormalities Normal axis MDM Narrative Medical decision making narrative: 60-year-old gentleman morbidly obese presents with severe sharp stabbing tearing chest pain radiating through the center of his chest to his back incredibly hypertensive with a diastolic blood pressure of 125. Will be started on IV blood pressure medications and a CT scan of his chest will be ordered. CTA is negative. Mildly elevated lipase however no evidence of pancreatitis on CT scan. Similarly no evidence of pneumonia or consolidated findings on CT scan. No pneumothorax no alternate explanation for his pain. ProBNP is slightly elevated but he does not have overt signs or symptoms of congestive heart failure. Troponin is significantly elevated at 0.135. Will be repeated. His renal insufficiency does make this a bit more challenging to interpret however less than a year ago troponin was completely normal with higher levels of proBNP. This suggests that this is most likely acute coronary syndrome as a cause for his acute chest pain. Dramatically elevated blood pressure currently on nicardipine drip with blood pressure is coming down. This may also explain the elevated troponin. Dr Owens, cardiology, is consulted. His recommendation was to add amlodipine and wean off the nicardipine. If needed next choice could be Hydralazine 50 BID Pharmacy records suggest that the only blood pressure medication he is currently on is metoprolol 100 mg extended release. It looks like he has not filled the diltiazem 240 mg or the atenolol 100 mg nor the clonidine 0.2 mg 3 times a day. He does take all of his medications at night. Will give him his nightly atenolol and will add in the amlodipine as suggested by Dr. Owens. Assuming blood pressures are controlled by the morning than he can do a stress test in the morning. <Connor Zhang, DO - Last Filed: 12/16/20 02:44> Lab Data Labs: Lab Results 12/15/20 12/15/20 12/15/20 Range/Units 15:42 15:42 15:42 WBC 9.3 (4.5-11.0) X10^3/uL RBC 5.29 (4.5-5.9) X10^6/uL Hgb 15.1 (13.5-17.5) g/dL Hct 47.2 (41-53) % MCV 89.2 (80-100) fL MCH 28.6 (26-34) PG MCHC 32.0 (30-36) % RDW 15.2 H (11.6-14.8) % Plt Count 234 (150-400) X10^3/uL Neut % (Auto) 76.5 H (50-75) % Lymph % (Auto) 13.5 L (25-40) % [place] % (Auto) 7.6 (3-14) % Eos % (Auto) 1.7 L (2-4) % Baso % (Auto) 0.7 (0-2) % Neut # (Auto) 7100 H (1762-4863) /uL Lymph # (Auto) 1200 (5453-6263) /uL [place] # (Auto) 700 (0-900) /uL Eos # (Auto) 200 (0-450) /uL Baso # (Auto) 100 (0-100) /uL Sodium 140 (137-145) mmol/L Potassium 4.4 (3.4-5.1) mmol/L Chloride 105 (98-107) mmol/L Carbon Dioxide 34 H (22-32) mmol/L BUN 39 H (9-20) mg/dL Creatinine 2.23 H (0.66-1.25) mg/dL Estimated GFR 30.1 L (>60) mL/min BUN/Creatinine Ratio 17.5 (6-22) Glucose 154 H (80-110) mg/dL Calcium 9.6 (8.4-10.2) mg/dL Magnesium 2.4 H (1.6-2.3) mg/dL Total Bilirubin 0.7 (0.2-1.3) mg/dL AST 39 (17-59) IU/L ALT 21 (<50) IU/L Alkaline Phosphatase 108 (38-126) U/L Troponin I 0.135 H* (0.01-0.034) ng/mL NT-Pro-B Natriuret Pep 1280 H (<125) pg/mL Total Protein 7.1 (6.3-8.2) g/dL Albumin 3.9 (3.5-5.0) g/dL Globulin 3.2 (1.7-4.1) g/dL Albumin/Globulin Ratio 1.2 (1.0-2.8) Triglycerides (35-150) mg/dL Cholesterol (140-199) mg/dL LDL Cholesterol, Calc (<100) mg/dL HDL Cholesterol (40-60) mg/dL Lipase 348 H (23-300) U/L Urine Color Urine Appearance Urine pH (4.5-8.0) Ur Specific [place] (1.000-1.035) Urine Protein (Negative) Urine Glucose (UA) (Negative) g/dL Urine Ketones (NEGATIVE) Urine Occult Blood (Negative) Urine Nitrate (Negative) Urine Bilirubin (NEGATIVE) Urine Urobilinogen (0.2) E.U./dL Ur Leukocyte Esterase (NEGATIVE) Urine RBC (0-5/HPF) Urine WBC (0-5/HPF) Ur Squamous Epith Cells (0-5/HPF) Urine Bacteria (None) Hyaline Casts (None) Granular Casts (None) Urine Sperm Ur Culture Indicated? SARS-CoV-2 (PCR) (Negative) 12/15/20 12/15/20 12/15/20 Range/Units 16:25 18:21 20:41 WBC (4.5-11.0) X10^3/uL RBC (4.5-5.9) X10^6/uL Hgb (13.5-17.5) g/dL Hct (41-53) % MCV (80-100) fL MCH (26-34) PG MCHC (30-36) % RDW (11.6-14.8) % Plt Count (150-400) X10^3/uL Neut % (Auto) (50-75) % Lymph % (Auto) (25-40) % [place] % (Auto) (3-14) % Eos % (Auto) (2-4) % Baso % (Auto) (0-2) % Neut # (Auto) (5937-1798) /uL Lymph # (Auto) (4379-4493) /uL [place] # (Auto) (0-900) /uL Eos # (Auto) (0-450) /uL Baso # (Auto) (0-100) /uL Sodium (137-145) mmol/L Potassium (3.4-5.1) mmol/L Chloride (98-107) mmol/L Carbon Dioxide (22-32) mmol/L BUN (9-20) mg/dL Creatinine (0.66-1.25) mg/dL Estimated GFR (>60) mL/min BUN/Creatinine Ratio (6-22) Glucose (80-110) mg/dL Calcium (8.4-10.2) mg/dL Magnesium (1.6-2.3) mg/dL Total Bilirubin (0.2-1.3) mg/dL AST (17-59) IU/L ALT (<50) IU/L Alkaline Phosphatase (38-126) U/L Troponin I 0.260 H* (0.01-0.034) ng/mL NT-Pro-B Natriuret Pep (<125) pg/mL Total Protein (6.3-8.2) g/dL Albumin (3.5-5.0) g/dL Globulin (1.7-4.1) g/dL Albumin/Globulin Ratio (1.0-2.8) Triglycerides 146 (35-150) mg/dL Cholesterol 268 H (140-199) mg/dL LDL Cholesterol, Calc 179 H (<100) mg/dL HDL Cholesterol 60 (40-60) mg/dL Lipase (23-300) U/L Urine Color Urine Appearance Urine pH (4.5-8.0) Ur Specific [place] (1.000-1.035) Urine Protein (Negative) Urine Glucose (UA) (Negative) g/dL Urine Ketones (NEGATIVE) Urine Occult Blood (Negative) Urine Nitrate (Negative) Urine Bilirubin (NEGATIVE) Urine Urobilinogen (0.2) E.U./dL Ur Leukocyte Esterase (NEGATIVE) Urine RBC (0-5/HPF) Urine WBC (0-5/HPF) Ur Squamous Epith Cells (0-5/HPF) Urine Bacteria (None) Hyaline Casts (None) Granular Casts (None) Urine Sperm Ur Culture Indicated? SARS-CoV-2 (PCR) Negative (Negative) 12/15/20 12/15/20 Range/Units 20:41 21:56 WBC (4.5-11.0) X10^3/uL RBC (4.5-5.9) X10^6/uL Hgb (13.5-17.5) g/dL Hct (41-53) % MCV (80-100) fL MCH (26-34) PG MCHC (30-36) % RDW (11.6-14.8) % Plt Count (150-400) X10^3/uL Neut % (Auto) (50-75) % Lymph % (Auto) (25-40) % [place] % (Auto) (3-14) % Eos % (Auto) (2-4) % Baso % (Auto) (0-2) % Neut # (Auto) (0026-8039) /uL Lymph # (Auto) (7101-0672) /uL [place] # (Auto) (0-900) /uL Eos # (Auto) (0-450) /uL Baso # (Auto) (0-100) /uL Sodium (137-145) mmol/L Potassium (3.4-5.1) mmol/L Chloride (98-107) mmol/L Carbon Dioxide (22-32) mmol/L BUN (9-20) mg/dL Creatinine (0.66-1.25) mg/dL Estimated GFR (>60) mL/min BUN/Creatinine Ratio (6-22) Glucose (80-110) mg/dL Calcium (8.4-10.2) mg/dL Magnesium (1.6-2.3) mg/dL Total Bilirubin (0.2-1.3) mg/dL AST (17-59) IU/L ALT (<50) IU/L Alkaline Phosphatase (38-126) U/L Troponin I 0.893 H* (0.01-0.034) ng/mL NT-Pro-B Natriuret Pep (<125) pg/mL Total Protein (6.3-8.2) g/dL Albumin (3.5-5.0) g/dL Globulin (1.7-4.1) g/dL Albumin/Globulin Ratio (1.0-2.8) Triglycerides (35-150) mg/dL Cholesterol (140-199) mg/dL LDL Cholesterol, Calc (<100) mg/dL HDL Cholesterol (40-60) mg/dL Lipase (23-300) U/L Urine Color Yellow Urine Appearance Clear Urine pH 5.0 (4.5-8.0) Ur Specific [place] 1.015 (1.000-1.035) Urine Protein 3+ H (Negative) Urine Glucose (UA) Negative (Negative) g/dL Urine Ketones Negative (NEGATIVE) Urine Occult Blood Trace-lysed (Negative) Urine Nitrate Negative (Negative) Urine Bilirubin Negative (NEGATIVE) Urine Urobilinogen 0.2 (0.2) E.U./dL Ur Leukocyte Esterase Negative (NEGATIVE) Urine RBC 0-1/hpf (0-5/HPF) Urine WBC 0-1/hpf (0-5/HPF) Ur Squamous Epith Cells 0-1 /hpf (0-5/HPF) Urine Bacteria None seen (None) Hyaline Casts 1-5/lpf (None) Granular Casts 0-1/lpf (None) Urine Sperm Few Ur Culture Indicated? Cult not indicated SARS-CoV-2 (PCR) (Negative) <Connor Zhang, DO - Last Filed: 12/16/20 02:44> Critical Care Time Critical Care Time: Yes Total Critical Care Time: 60 Attestation: The high probability of a clinically significant, sudden or life threatening deterioration of the [CV] system(s) required my full and direct attention, intervention and personal management. The aggregate critical care time was [60] minutes. This time is in addition to time spent performing reported procedures but includes the following: [x] Data Review and interpretation [x] Patient assessment and monitoring of vital signs [x] Documentation [x] Medication orders and management Discharge Plan Departure Patient Disposition: Xfer [facility] Clinical Impression: ACS (acute coronary syndrome), Hypertensive crisis, Acute kidney injury Prescriptions: No Action testosterone cypionate 200 mg/mL oil 200 mg IM Q4W Qty: 10 RF: 1 allopurinol 100 mg tablet 100 mg PO DAILY Qty: 90 RF: 3 Eliquis 5 mg tablet 5 mg PO BID Qty: 180 RF: 3 metoprolol succinate 100 mg tablet extended release 24 hr 100 mg PO DAILY Qty: 90 RF: 3 clonidine HCl 0.2 mg tablet 0.2 mg PO TID PRN (Reason: hypertensive emergency) 10 Days Qty: 30 RF: 0 clobetasol 0.05 % ointment 1 applic topical BID RF: 0 fluconazole 100 mg tablet 100 mg PO QWEEK RF: 0 furosemide 40 mg tablet 80 mg PO DAILY RF: 0 diltiazem HCl 240 mg capsule,extended release 24 hr 240 mg PO DAILY RF: 0 terbinafine HCl 250 mg tablet 250 mg PO DAILY 84 Days Qty: 84 RF: 0 Referrals: Geoffrey Portillo MD [Primary Care Provider] -
--- NOTE | 2020-12-15 16:08 | DI.CT.S_ITS ---
PROCEDURE: CT ANGIO CHEST ABDOMEN PELVIS INDICATIONS: stabbing trearing CP with concern for dissection TECHNIQUE: Precontrast 5 mm thick sections acquired from the lung apices to the iliac crests. After the administration of intravenous contrast, 2.5 mm thick sections again acquired from the lung apices to the iliac crests. Maximum intensity projection (MIP) oblique sagittal and coronal reformats were then acquired. For radiation dose reduction, the following was used: automated exposure control. COMPARISON: None. FINDINGS: Image quality: Excellent. AORTA: The thoracoabdominal aorta is within normal limits with no evidence of dissection, aneurysm, nor significant stenosis. CHEST: Lungs and pleura: No acute airspace opacities. No pleural effusions or pneumothorax. Central and peripheral airways are patent and normal in caliber. Mediastinum: Heart size is normal. Mild calcification of the coronary vasculature. No pericardial effusion. No mediastinal or hilar adenopathy by size criteria. Central pulmonary arteries are normal in size. Esophagus is normal in caliber. No hiatal hernias. Bones and chest wall: No axillary adenopathy by size criteria. Thyroid gland is grossly unremarkable . No suspicious bony lesions. No vertebral body compression fractures. ABDOMEN: Vasculature: Celiac trunk and mesenteric arteries are patent. Renal arteries are also patent. Solid organs: Liver is normal in size and enhancement. Gallbladder is within normal limits . Biliary system is non dilated. Pancreas enhances normally. Spleen is normal in size and enhancement. No adrenal nodules. Moderate bilateral renal scarring is present. Both kidneys are otherwise normal in size and enhancement, without hydronephrosis. Peritoneum and bowel: Normal appendix. There is a small amount of free fluid within the right hemipelvis anteriorly measuring roughly 9 cm. Small amount of fluid within the left hemiabdomen measuring roughly 7 cm is present. Bowel loops are normal in caliber and wall thickness. Nodes and vessels: No retroperitoneal or mesenteric adenopathy by size criteria. Inferior vena cava is normal in morphology. Miscellaneous: No ventral hernias. PELVIS: Genitourinary: Bladder wall thickness is normal. Miscellaneous: No inguinal hernias or adenopathy. No ventral hernias. Bones: No suspicious bony lesions. No vertebral body compression fractures. IMPRESSION: 1. Negative evaluation of the aorta. 2. Normal appendix. 3. Small amount of fluid within the right pelvis and left abdomen. Differential considerations include inflammation, infection, and underlying neoplasm. Chronic fluid collections could produce a similar appearance. 4. Coronary artery disease. Dictated by: Anson Barber M.D. on 12/15/2020 at 16:51 Approved by: Anson Barber M.D. on 12/15/2020 at 16:55
[2020-12-15 16:12] LABS: Add Manual Diff / Slide Review NO; Basophils Absolute Auto 100 /uL (0-100); Basophils Percent Auto 0.7 % (0-2); Eosinophils Absolute Auto 200 /uL (0-450); Eosinophils Percent Auto 1.7 % (2-4); Hematocrit 47.2 % (41-53); Hemoglobin 15.1 g/dL (13.5-17.5); Lymphocytes Absolute Auto 1200 /uL (1100-4500); Lymphocytes Percent Auto 13.5 % (25-40); Mean Corpuscular Hemoglobin 28.6 PG (26-34); Mean Corpuscular Volume 89.2 fL (80-100); Monocytes Absolute Auto 700 /uL (0-900); Monocytes Percent Auto 7.6 % (3-14); Neutrophils Absolute Auto 7100 /uL (1500-7000); Neutrophils Percent Auto 76.5 % (50-75); Platelet Count 234 X10^3/uL (150-400); Red Blood Cell Count 5.29 X10^6/uL (4.5-5.9); Red Cell Distribution Width 15.2 % (11.6-14.8); White Blood Cell Count 9.3 X10^3/uL (4.5-11.0)
[2020-12-15 16:17] LABS: Lipase 348 U/L (23-300); Magnesium 2.4 mg/dL (1.6-2.3)
[2020-12-15 16:18] LABS: Alanine Aminotransferase 21 IU/L (<50); Albumin 3.9 g/dL (3.5-5.0); Albumin Globulin Ratio 1.2 (1.0-2.8); Alkaline Phosphatase 108 U/L (38-126); Aspartate Aminotransferase 39 IU/L (17-59); BUN Creatinine Ratio 17.5 (6-22); Bilirubin Total 0.7 mg/dL (0.2-1.3); Blood Urea Nitrogen 39 mg/dL (9-20); Calcium 9.6 mg/dL (8.4-10.2); Carbon Dioxide 34 mmol/L (22-32); Chloride 105 mmol/L (98-107); Estimated Glomerular Filt Rate 30.1 mL/min (>60); Globulin 3.2 g/dL (1.7-4.1); Glucose 154 mg/dL (80-110); HEMOLYSIS 41 (0-50); Potassium 4.4 mmol/L (3.4-5.1); Sodium 140 mmol/L (137-145); Total Protein 7.1 g/dL (6.3-8.2)
[2020-12-15] MEDS: NICARDIPINE 25 MG in SODIUM CHLORIDE 0.9% 240 ML 50 ML IV (16:18)
[2020-12-15 16:30] LABS: NT-proBNP (BNP-Adult 18+) 1280 pg/mL (<125)
[2020-12-15 16:54] LABS: Troponin I 0.135 ng/mL (0.01-0.034)
[2020-12-15 17:25] LABS: COVID19 - ADMIT (NP swab/PCR) Negative (Negative)
[2020-12-15] MEDS: NICARDIPINE 25 MG in SODIUM CHLORIDE 0.9% 240 ML 100 ML IV (18:20)
[2020-12-15] MEDS: AMLODIPINE 5 MG TABLET 10 MG PO (18:55)
[2020-12-15] MEDS: METOPROLOL ER 50 MG TABLET 100 MG PO (18:55)
[2020-12-15] MEDS: ASPIRIN EC 325 MG TABLET PO (20:10)
[2020-12-15 21:29] LABS: Cholesterol 268 mg/dL (140-199); HDL Cholesterol 60 mg/dL (40-60); LDL Cholesterol Calculated 179 mg/dL (<100); Triglycerides 146 mg/dL (35-150)
[2020-12-15 21:54] LABS: Troponin I 0.893 ng/mL (0.01-0.034)
[2020-12-15] MEDS: LACTATED RINGERS 1,000 ML 60 ML IV (21:59)
[2020-12-15 22:12] LABS: Appearance Urine UA CLEAR; Bilirubin Urine UA NEGATIVE (NEGATIVE); Color Urine UA YELLOW; Glucose Urine UA NEGATIVE (Negative); Ketones Urine UA NEGATIVE (NEGATIVE); Leukocyte Esterase Urine UA NEGATIVE (NEGATIVE); Nitrite Urine UA NEGATIVE (Negative); Occult Blood Urine UA TRACE-LYSED (Negative); Protein Urine UA 3+ (Negative); Specific Gravity Urine UA 1.015 (1.000-1.035); Urobilinogen Urine UA 0.2 E.U./dL (0.2)
[2020-12-15] MEDS: APIXABAN 5 MG TABLET PO (22:15)
[2020-12-15 22:26] LABS: Bacteria Urine None Seen; Culture Indicated Urine Cult Not Indicated; Granular Casts Urine 0-1/LPF; Hyaline Casts Urine 1-5/LPF; RBC Urine 0-1/HPF (0-5/HPF); Sperm Urine FEW; Squamous Epithelial Cell Urine 0-1 /HPF (0-5/HPF); WBC Urine 0-1/HPF (0-5/HPF)
[2020-12-16] VITALS (14 sets, daily range): BP systolic 148–190; BP diastolic 89–107; PULSE 79–89; RESP 16–32; O2SAT 92–96
[2020-12-16] MEDS: LABETALOL 20 MG/4 ML SYRINGE IV (00:08)
== END 2020-12-16 02:45 | disposition short-term general hospital (02) ==
LOC: ED 18:44 → AC 19:19 → ED 23:39
PROVIDERS: Nurse Practitioner Family; Emergency Provider Emergency Medicine; Family Provider Nutritionist; PCP Student in an Organized Health Care Education/Training Program; Referring Provider Emergency Medicine
DX: I24.9 Acute ischemic heart disease, unspecified (principal); I16.9 Hypertensive crisis, unspecified; N17.9 Acute kidney failure, unspecified; Z20.822 Contact with and (suspected) exposure to COVID-19
CPT/HCPCS: 36415; 71275; 74174; 80053; 80061; 81001; 83690; 83735; 83880; 84484; 85025; 87635; 93005; 93010; 96361; 96365; 96366; 96375; 99285; 99291; C9803

== ENCOUNTER 2021-02-20 15:46 | Emergency (ER) | payer MEDICARE, OTHER, SELFPAY ==
[2021-02-20 15:49] VITALS: BP 203/113; PULSE 88; RESP 24; TEMP 36.4; O2SAT 92
--- NOTE | 2021-02-20 15:55 | DI.RAD.S_ITS ---
PROCEDURE: XR CHEST 1V INDICATIONS: chest pain TECHNIQUE: One view of the chest was acquired. COMPARISON: [facility], CR, XR CHEST 1V, 03/15/2020, 17:12. FINDINGS: Surgical changes and devices: None. Lungs and pleura: Small left-sided pleural fluid collection. Cephalization of pulmonary vasculature and increased interstitial prominence concerning for CHF. Patchy opacity in the left lung base which could represent atelectasis versus pneumonia. Mediastinum: Mediastinal contours appear normal. Heart is enlarged.. Bones and chest wall: No suspicious bony lesions. Overlying soft tissues appear unremarkable. IMPRESSION: 1. CHF. 2. Small left-sided pleural effusion. 3. Patchy left basilar opacities which could represent atelectasis or pneumonia. Dictated by: Yue Mcclain MD, PhD on 02/20/2021 at 16:30 Approved by: Yue Mcclain MD, PhD on 02/20/2021 at 16:31
[2021-02-20 16:18] LABS: Add Manual Diff / Slide Review NO; Basophils Absolute Auto 100 /uL (0-100); Basophils Percent Auto 1.1 % (0-2); Eosinophils Absolute Auto 200 /uL (0-450); Eosinophils Percent Auto 2.3 % (2-4); Hematocrit 42.7 % (41-53); Hemoglobin 13.8 g/dL (13.5-17.5); Lymphocytes Absolute Auto 700 /uL (1100-4500); Lymphocytes Percent Auto 8.7 % (25-40); Mean Corpuscular HGB Conc 32.2 % (30-36); Mean Corpuscular Hemoglobin 27.9 PG (26-34); Mean Corpuscular Volume 86.6 fL (80-100); Monocytes Absolute Auto 400 /uL (0-900); Monocytes Percent Auto 5.5 % (3-14); Neutrophils Absolute Auto 6800 /uL (1500-7000); Neutrophils Percent Auto 82.4 % (50-75); Platelet Count 200 X10^3/uL (150-400); Red Blood Cell Count 4.92 X10^6/uL (4.5-5.9); White Blood Cell Count 8.2 X10^3/uL (4.5-11.0)
[2021-02-20 16:25] LABS: Alanine Aminotransferase 20 IU/L (<50); Albumin 3.9 g/dL (3.5-5.0); Albumin Globulin Ratio 1.2 (1.0-2.8); Alkaline Phosphatase 126 U/L (38-126); Aspartate Aminotransferase 26 IU/L (17-59); BUN Creatinine Ratio 12.6 (6-22); Bilirubin Total 0.8 mg/dL (0.2-1.3); Blood Urea Nitrogen 23 mg/dL (9-20); Calcium 9.5 mg/dL (8.4-10.2); Carbon Dioxide 34 mmol/L (22-32); Chloride 104 mmol/L (98-107); Creatine Kinase 53 U/L (55-170); Estimated Glomerular Filt Rate 38.1 mL/min (>60); Globulin 3.2 g/dL (1.7-4.1); Glucose 185 mg/dL (80-110); HEMOLYSIS < 15 (0-50); Lipase 807 U/L (23-300); Sodium 142 mmol/L (137-145); Total Protein 7.1 g/dL (6.3-8.2)
[2021-02-20 16:36] LABS: Troponin I 0.022 ng/mL (0.01-0.034)
[2021-02-20 18:32] LABS: NT-proBNP (BNP-Adult 18+) 3500 pg/mL (<125)
--- NOTE | 2021-02-20 18:46 | ED.SOB ---
HPI - SOB/Dyspnea General Chief Complaint: Shortness of Breath/Dyspnea Stated Complaint: COUGH HARD TO BREATH WORE OUT Time Seen by Provider: 02/20/21 18:28 Source: patient Mode of arrival: Ambulatory History of Present Illness HPI Narrative: Patient is a 60-year-old obese male history of atrial fibrillation on Eliquis congestive heart failure obesity, presenting today with increasing shortness of breath. states that over the last 3 days she has noted increasing shortness of breath exertion. No fever chills or chest pain, or palpitations. He has noted some increased lower extremity edema as well. He states he does take his furosemide 40 mg once daily. Does not weigh himself daily. He denies any fever or chills but is curious if he may have COVID he is not vaccinated. No other symptoms at this time. Related Data Home Medications Medication Instructions Recorded Confirmed diltiazem HCl 240 mg capsule,24 240 mg PO DAILY 03/15/20 01/19/21 hr,extended release furosemide 40 mg tablet 80 mg PO DAILY 03/15/20 01/19/21 clobetasol 0.05 % topical ointment 1 applic TOPICAL BID g 10/13/20 01/19/21 amoxicillin 500 mg capsule 500 mg PO TID 12/19/20 01/19/21 aspirin 81 mg tablet,delayed 81 mg PO DAILY 12/19/20 01/19/21 release atorvastatin 80 mg tablet 80 mg PO BEDTIME 12/19/20 01/19/21 carvedilol 25 mg tablet 25 mg PO BID 12/19/20 01/19/21 clindamycin HCl 300 mg capsule 300 mg PO QID 12/19/20 01/19/21 clopidogrel 75 mg tablet 75 mg PO DAILY 12/19/20 01/19/21 gabapentin 300 mg capsule 300 mg PO TID 12/19/20 01/19/21 hydralazine 25 mg tablet 25 mg PO TID 12/19/20 01/19/21 Previous Rx's Medication Instructions Recorded testosterone cypionate 200 mg/mL 200 mg IM Q4W #10 ml 11/01/20 intramuscular oil allopurinol 100 mg tablet 100 mg PO DAILY #90 tab 11/14/20 apixaban 5 mg tablet (Eliquis) 5 mg PO BID #180 tab 11/14/20 Allergies Allergy/AdvReac Type Severity Reaction Status Date / Time hydrochlorothiazide Allergy Mild acute Verified 02/20/21 20:54 renal failure lisinopril [LISINOPRIL] Allergy Unknown COUGH Verified 02/20/21 20:54 aspirin [ASPIRIN] AdvReac Severe IN ACUTE Verified 02/20/21 20:54 RENAL FAILURE ibuprofen [From MOTRIN] AdvReac Severe IN ACUTE Verified 02/20/21 20:54 RENAL Review of Systems Review of Systems Narrative: GENERAL: Denies chills, fatigue, malaise, fever, sweats, travel HEENT: Denies sinus pain, ear pain, sore throat, difficulty swallowing, neck pain RESPIRATORY: See HPI CARDIOVASCULAR: Denies chest pain, palpitations, orthopnea, edema GASTROINTESTINAL: Denies nausea, vomiting, abdominal pain, diarrhea, constipation, melena. : Denies dysuria, frequency, incontinence, hematuria, urinary retention, flank pain. MUSCULOSKELETAL: Chronic left shoulder SKIN: No rash, no erythema, no pruritus NEUROLOGIC: Denies weakness, dizziness, headache, numbness, change in speech, confusion PSYCHIATRIC: No concerning psychosocial issues. 12 point review of systems is negative except for those stated above and HPI Patient History Medical History Anxiety Atrial fibrillation Chronic anxiety Chronic heart failure with preserved ejection fraction (HFpEF) Gouty arthritis Hypertension Lower extremity edema Morbid obesity [place] stain of face Stage 3b chronic kidney disease Tinea pedis Social History Smoking Status: Never smoker Smoking Status: Never smoker Substance Use Type: does not use Exam Initial Vital Signs Initial Vital Signs: Vital Signs Temperature 97.5 F L 02/20/21 15:49 Pulse Rate 88 02/20/21 15:49 Respiratory Rate 24 02/20/21 15:49 Blood Pressure 203/113 H 02/20/21 15:49 Pulse Oximetry 92 02/20/21 15:49 GENERAL: Alert 60-year-old male obese in no acute distress. HEENT: Head atraumatic,EOMI, pupils reactive, face symmetric, moist mucous membranes CARDIOVASCULAR: Regular rate and rhythm without murmurs, rubs or gallops. RESPIRATORY: Breath sounds equal bilaterally, no wheezes rales or rhonchi. ABDOMEN: Soft, nontender. Normoactive bowel sounds all 4 quadrants. No guarding or rebound. EXTREMITIES: Normal range of motion, no clubbing. +2 pitting edema bilaterally. Neurovascularly intact NEUROLOGICAL: Alert and oriented x4.Normal gait and speech. SKIN: Warm, dry, no laceration, no petechiae, no rashes or lesions. Course Orders Ordered: Discontinued Medications Carvedilol (Carvedilol 12.5 Mg Tablet) 25 mg PO NOW ONE Stop: 02/20/21 20:38 Last Admin: 02/20/21 20:54 Dose: 25 mg Documented by: DALIA Furosemide (Furosemide 40 Mg/4 Ml Vial) 40 mg IV NOW ONE Stop: 02/20/21 19:01 Last Admin: 02/20/21 19:27 Dose: 40 mg Documented by: DALIA Vital Signs Vital signs: Vital Signs - 8 hr 02/20/21 15:49 Temperature 97.5 F L Pulse Rate 88 Respiratory Rate 24 Blood Pressure 203/113 H Pulse Oximetry 92 MDM - SOB/Dyspnea Lab Data Result diagrams: 02/20/21 16:04 02/20/21 16:04 Labs: Lab Results 02/20/21 02/20/21 02/20/21 Range/Units 16:04 16:04 16:04 WBC 8.2 (4.5-11.0) X10^3/uL RBC 4.92 (4.5-5.9) X10^6/uL Hgb 13.8 (13.5-17.5) g/dL Hct 42.7 (41-53) % MCV 86.6 (80-100) fL MCH 27.9 (26-34) PG MCHC 32.2 (30-36) % RDW 15.0 H (11.6-14.8) % Plt Count 200 (150-400) X10^3/uL Neut % (Auto) 82.4 H (50-75) % Lymph % (Auto) 8.7 L (25-40) % [place] % (Auto) 5.5 (3-14) % Eos % (Auto) 2.3 (2-4) % Baso % (Auto) 1.1 (0-2) % Neut # (Auto) 6800 (7116-2088) /uL Lymph # (Auto) 700 L (4149-9663) /uL [place] # (Auto) 400 (0-900) /uL Eos # (Auto) 200 (0-450) /uL Baso # (Auto) 100 (0-100) /uL Sodium 142 (137-145) mmol/L Potassium 4.0 (3.4-5.1) mmol/L Chloride 104 (98-107) mmol/L Carbon Dioxide 34 H (22-32) mmol/L BUN 23 H (9-20) mg/dL Creatinine 1.82 H (0.66-1.25) mg/dL Estimated GFR 38.1 L (>60) mL/min BUN/Creatinine Ratio 12.6 (6-22) Glucose 185 H (80-110) mg/dL Calcium 9.5 (8.4-10.2) mg/dL Total Bilirubin 0.8 (0.2-1.3) mg/dL AST 26 (17-59) IU/L ALT 20 (<50) IU/L Alkaline Phosphatase 126 (38-126) U/L Total Creatine Kinase 53 L (55-170) U/L CK-MB (CK-2) TNP CK-MB (CK-2) Rel Index TNP Troponin I 0.022 (0.01-0.034) ng/mL NT-Pro-B Natriuret Pep 3500 H (<125) pg/mL Total Protein 7.1 (6.3-8.2) g/dL Albumin 3.9 (3.5-5.0) g/dL Globulin 3.2 (1.7-4.1) g/dL Albumin/Globulin Ratio 1.2 (1.0-2.8) Lipase 807 H (23-300) U/L SARS-CoV-2 (PCR) (Negative) 02/20/21 02/20/21 Range/Units 19:22 19:25 WBC (4.5-11.0) X10^3/uL RBC (4.5-5.9) X10^6/uL Hgb (13.5-17.5) g/dL Hct (41-53) % MCV (80-100) fL MCH (26-34) PG MCHC (30-36) % RDW (11.6-14.8) % Plt Count (150-400) X10^3/uL Neut % (Auto) (50-75) % Lymph % (Auto) (25-40) % [place] % (Auto) (3-14) % Eos % (Auto) (2-4) % Baso % (Auto) (0-2) % Neut # (Auto) (5078-2017) /uL Lymph # (Auto) (9943-1399) /uL [place] # (Auto) (0-900) /uL Eos # (Auto) (0-450) /uL Baso # (Auto) (0-100) /uL Sodium (137-145) mmol/L Potassium (3.4-5.1) mmol/L Chloride (98-107) mmol/L Carbon Dioxide (22-32) mmol/L BUN (9-20) mg/dL Creatinine (0.66-1.25) mg/dL Estimated GFR (>60) mL/min BUN/Creatinine Ratio (6-22) Glucose (80-110) mg/dL Calcium (8.4-10.2) mg/dL Total Bilirubin (0.2-1.3) mg/dL AST (17-59) IU/L ALT (<50) IU/L Alkaline Phosphatase (38-126) U/L Total Creatine Kinase (55-170) U/L CK-MB (CK-2) CK-MB (CK-2) Rel Index Troponin I 0.019 (0.01-0.034) ng/mL NT-Pro-B Natriuret Pep (<125) pg/mL Total Protein (6.3-8.2) g/dL Albumin (3.5-5.0) g/dL Globulin (1.7-4.1) g/dL Albumin/Globulin Ratio (1.0-2.8) Lipase (23-300) U/L SARS-CoV-2 (PCR) Negative (Negative) Imaging Data Chest x-ray: Radiologist's Impression: PROCEDURE:? XR CHEST 1V ? INDICATIONS:? chest pain ? TECHNIQUE:? One view of the chest was acquired.? ? COMPARISON:? [facility], , XR CHEST 1V, 03/15/2020, 17:12. ? FINDINGS:? ? Surgical changes and devices:? None.? ? Lungs and pleura:? Small left-sided pleural fluid collection.? Cephalization of pulmonary vasculature and increased interstitial prominence concerning for CHF.? Patchy opacity in the left lung base which could represent atelectasis versus pneumonia. ? Mediastinum:? Mediastinal contours appear normal.? Heart is enlarged..? ? Bones and chest wall:? No suspicious bony lesions.? Overlying soft tissues appear unremarkable.? ? ? IMPRESSION:? ? 1. CHF.? ? 2. Small left-sided pleural effusion. ? 3. Patchy left basilar opacities which could represent atelectasis or pneumonia. ? ? ? Dictated by: Yue Mcclain MD, PhD on 02/20/2021 at 16:30? ECG Data Interpretation: Atrial fibrillation rate [address] changes similar to previous EKG in November [facility] Narrative Medical decision making narrative: Patient has history of congestive heart failure BNP today is 3500. Echo earlier this year showed an EF of 60-65%. This is unlikely pulmonary embolism thing is that he is taking Eliquis. COVID is negative he does not have any infectious symptoms. Symptoms are consistent congestive heart failure. We did discuss increasing his Lasix and weighing himself regularly and being compliant with medication. This time he is agreeable to it. He has going to think about the COVID vaccine answered what of questions for him. Discharge Plan Departure Patient Disposition: Home Clinical Impression: Chronic heart failure with preserved ejection fraction (HFpEF) Instructions: DI for Heart Failure Activity Restrictions/Additional Instructions: *You have been diagnosed with congestive heart failure *What to do: At this time your COVID test is negative. I do encourage you to get vaccinated if you choose to do so. Weigh yourself every day to monitor weight, and fluid retention. If weight is increasing you may take an extra furosemide *Continue to take medications as directed Furosemide 40 mg twice a day for 3 days Acetaminophen 1000 mg every 6 hours as needed for pain *Follow up with your primary care provider in 2-3 days *Return to ER if you should have [such as] [or] any new, worsening or concerning symptoms Prescriptions: No Action testosterone cypionate 200 mg/mL oil 200 mg IM Q4W Qty: 10 1RF allopurinol 100 mg tablet 100 mg PO DAILY Qty: 90 3RF Eliquis 5 mg tablet 5 mg PO BID Qty: 180 3RF clobetasol 0.05 % ointment 1 applic topical BID 0RF carvedilol 25 mg tablet 25 mg PO BID 0RF Rx Instructions: must administer with a meal/food aspirin 81 mg tablet,delayed release (DR/EC) 81 mg PO DAILY 0RF atorvastatin 80 mg tablet 80 mg PO BEDTIME 0RF gabapentin 300 mg capsule 300 mg PO TID 0RF clindamycin HCl 300 mg capsule 300 mg PO QID 0RF clopidogrel 75 mg tablet 75 mg PO DAILY 0RF hydralazine 25 mg tablet 25 mg PO TID 0RF amoxicillin 500 mg capsule 500 mg PO TID 0RF furosemide 40 mg tablet 80 mg PO DAILY 0RF diltiazem HCl 240 mg capsule,extended release 24 hr 240 mg PO DAILY 0RF Referrals: Geoffrey Portillo MD [Primary Care Provider] -
[2021-02-20] MEDS: FUROSEMIDE 40 MG/4 ML VIAL IV (19:27)
[2021-02-20 19:44] LABS: COVID19 -Nasal RAPID Negative (Negative)
[2021-02-20 19:59] LABS: Troponin I 0.019 ng/mL (0.01-0.034)
[2021-02-20 20:54] VITALS: BP 233/147; PULSE 83
[2021-02-20] MEDS: carvediloL 12.5 MG TABLET 25 MG PO (20:54)
[2021-02-20 21:22] VITALS: BP 189/90; PULSE 80; RESP 20; O2SAT 99
== END 2021-02-20 21:28 | disposition home or self-care (01) ==
PROVIDERS: Emergency Medicine; Emergency Provider Emergency Medicine; Family Provider Nutritionist; PCP Student in an Organized Health Care Education/Training Program
DX: I50.30 Unspecified diastolic (congestive) heart failure (principal); Z20.822 Contact with and (suspected) exposure to COVID-19
CPT/HCPCS: 36415; 71045; 80053; 82550; 83690; 83880; 84484; 85025; 87635; 93005; 96374; 99284; C9803; J1940

== ENCOUNTER → 2021-09-26 17:18 | Outpatient (CLI) | payer MEDICARE, OTHER, SELFPAY ==
[2021-09-26 18:23] LABS: BUN Creatinine Ratio 16.1 (6-22); Blood Urea Nitrogen 32 mg/dL (9-20); Carbon Dioxide 28 mmol/L (22-32); Chloride 107 mmol/L (98-107); Estimated Glomerular Filt Rate 37 mL/min (>60); Glucose 114 mg/dL (80-110); HEMOLYSIS < 15 (0-50); Sodium 141 mmol/L (137-145)
== END ==
PROVIDERS: Family Provider Nutritionist; PCP Student in an Organized Health Care Education/Training Program; Referring Provider Student in an Organized Health Care Education/Training Program; Visit Provider Student in an Organized Health Care Education/Training Program
DX: N18.32 Chronic kidney disease, stage 3b (principal)
CPT/HCPCS: 36415; 80048

== ENCOUNTER → 2021-10-18 09:30 | Outpatient (CLI) | payer MEDICARE, OTHER, SELFPAY ==
[2021-10-18 10:45] LABS: COVID19 -Nasal RAPID Negative (Negative)
== END ==
PROVIDERS: Family Provider Nutritionist; PCP Student in an Organized Health Care Education/Training Program; Visit Provider Surgery
DX: Z20.822 Contact with and (suspected) exposure to COVID-19 (principal); Z01.812 Encounter for preprocedural laboratory examination
CPT/HCPCS: 87635; C9803

== ENCOUNTER 2021-10-19 09:19 | Day surgery (SDC) | payer MEDICARE, OTHER, SELFPAY | END 2021-10-19 09:20 | disposition home or self-care (01) | LOC: ENDO 09:21 | PROVIDERS: Family Provider Nutritionist; PCP Student in an Organized Health Care Education/Training Program; Referring Provider Surgery; Visit Provider Surgery ==

== ENCOUNTER → 2021-10-26 09:40 | Outpatient (CLI) | payer MEDICARE, OTHER, SELFPAY | PROVIDERS: Family Provider Nutritionist; PCP Student in an Organized Health Care Education/Training Program; Referring Provider Dermatology; Visit Provider Family Medicine | DX: I87.2 Venous insufficiency (chronic) (peripheral) (principal); L97.822 Non-pressure chronic ulcer of other part of left lower leg with fat layer exposed; L97.812 Non-pressure chronic ulcer of other part of right lower leg with fat layer exposed; E11.622 Type 2 diabetes mellitus with other skin ulcer; S41.101A Unspecified open wound of right upper arm, initial encounter; L08.89 Other specified local infections of the skin and subcutaneous tissue; R60.0 Localized edema; E11.40 Type 2 diabetes mellitus with diabetic neuropathy, unspecified; I50.22 Chronic systolic (congestive) heart failure; E11.22 Type 2 diabetes mellitus with diabetic chronic kidney disease | CPT/HCPCS: 87070; 87075; 87077; 87186; 87205; 97597; 99204; 99213 ==

== ENCOUNTER → 2021-11-02 09:44 | Outpatient (CLI) | payer MEDICARE, OTHER, SELFPAY | PROVIDERS: Family Provider Nutritionist; PCP Student in an Organized Health Care Education/Training Program; Referring Provider Dermatology; Visit Provider Family Medicine | DX: I87.313 Chronic venous hypertension (idiopathic) with ulcer of bilateral lower extremity (principal); L97.812 Non-pressure chronic ulcer of other part of right lower leg with fat layer exposed; L97.822 Non-pressure chronic ulcer of other part of left lower leg with fat layer exposed; S41.101A Unspecified open wound of right upper arm, initial encounter; R60.0 Localized edema; Z79.01 Long term (current) use of anticoagulants; B95.7 Other staphylococcus as the cause of diseases classified elsewhere; B95.4 Other streptococcus as the cause of diseases classified elsewhere; N18.32 Chronic kidney disease, stage 3b; E11.622 Type 2 diabetes mellitus with other skin ulcer | CPT/HCPCS: 97597; 99214 ==

== ENCOUNTER → 2021-11-08 09:15 | Outpatient (CLI) | payer MEDICARE, OTHER, SELFPAY | PROVIDERS: Family Provider Nutritionist; PCP Student in an Organized Health Care Education/Training Program; Referring Provider Student in an Organized Health Care Education/Training Program; Visit Provider Family Medicine | DX: I87.2 Venous insufficiency (chronic) (peripheral) (principal); E11.622 Type 2 diabetes mellitus with other skin ulcer; L97.812 Non-pressure chronic ulcer of other part of right lower leg with fat layer exposed; S41.101A Unspecified open wound of right upper arm, initial encounter; R60.0 Localized edema; Z79.01 Long term (current) use of anticoagulants | CPT/HCPCS: 99212; 99213 ==

== ENCOUNTER → 2021-11-28 15:36 | Outpatient (CLI) | payer MEDICARE, OTHER, SELFPAY ==
[2021-11-28 16:47] LABS: Hemoglobin A1C% w Est Avg Glu 7.7 % (4.0-6.0)
[2021-11-28 17:01] LABS: BUN Creatinine Ratio 16.3 (6-22); Blood Urea Nitrogen 37 mg/dL (9-20); Calcium 9.7 mg/dL (8.4-10.2); Carbon Dioxide 28 mmol/L (22-32); Chloride 107 mmol/L (98-107); Estimated Glomerular Filt Rate 32 mL/min (>60); Glucose 119 mg/dL (80-110); HEMOLYSIS < 15 (0-50); Potassium 4.2 mmol/L (3.4-5.1); Sodium 143 mmol/L (137-145); Uric Acid 8.6 mg/dL (3.5-8.5)
[2021-11-28 17:28] LABS: Prostate Specific Antigen Scrn 0.419 ng/mL (0.1-4.0)
== END ==
PROVIDERS: Family Provider Nutritionist; PCP Student in an Organized Health Care Education/Training Program; Referring Provider Student in an Organized Health Care Education/Training Program; Visit Provider Student in an Organized Health Care Education/Training Program
DX: R73.9 Hyperglycemia, unspecified (principal); Z12.5 Encounter for screening for malignant neoplasm of prostate; I10 Essential (primary) hypertension; M10.9 Gout, unspecified; N18.32 Chronic kidney disease, stage 3b; Z79.899 Other long term (current) drug therapy; E66.01 Morbid (severe) obesity due to excess calories
CPT/HCPCS: 36415; 80048; 83036; 84550; G0103

== ENCOUNTER → 2022-01-16 14:18 | Outpatient (CLI) | payer MEDICARE, OTHER, SELFPAY ==
--- NOTE | 2022-01-16 14:22 | DI.RAD.S_ITS ---
PROCEDURE: XR CHEST 2V INDICATIONS: shortness of breath, weight gain TECHNIQUE: 2 views of the chest were acquired. COMPARISON: [facility], , XR CHEST 1V, 02/20/2021, 15:59. FINDINGS: Surgical changes and devices: None. Lungs and pleura: Lungs are clear. No pleural effusions or pneumothorax. Mediastinum: Mediastinal contours are normal. Heart size is enlarged. Bones and chest wall: No suspicious bony abnormalities. Soft tissues appear unremarkable. IMPRESSION: 1. Cardiomegaly and no definitive acute cardiopulmonary process. Dictated by: Tobias Moura [facility] Interpreted: Soraida Mayorga MD on 01/16/2022 at 14:42 Transcribed by: AILIN on 01/16/2022 at 14:44 Approved by: Soraida Mayorga M.D. on 01/16/2022 at 15:39
== END ==
PROVIDERS: Family Provider Nutritionist; PCP Student in an Organized Health Care Education/Training Program; Referring Provider Family Medicine; Visit Provider Family Medicine
DX: R06.02 Shortness of breath (principal); I51.7 Cardiomegaly
CPT/HCPCS: 71046; 93005

== ENCOUNTER → 2022-01-25 13:04 | Outpatient (CLI) | payer MEDICARE, OTHER, SELFPAY ==
--- NOTE | 2022-01-25 13:06 | DI.ECHO.S_ITS ---
[facility] +---------+ : : [address] : [place] : : : : [id number] : : : : Phone: [phone]+ Echocardiogram Report + + :Name: YUDELKA CONRAD Study Date: 01/25/2022 Height: 70 in : :[facility] ReadingLocation: Weight: 325 lb : : Gender: Male BSA: 2.6 m2 : :: 1960 Age: 61 yrs BP: 176/96 mmHg: :Reason For Study: CONGESTIVE HEART FAILURE : :Ordering Physician: CAMRYN NICEPerformed By: Yolanda Wells : :Referring: CAMRYN NICE : + + Interpretation Summary The ejection fraction is estimated to be 60-65%. Diastolic parameters suggest probable normal left ventricular diastolic function and normal filling pressures. The right ventricular systolic function is normal. Pulmonary artery pressures cannot be estimated because of the lack of a measurable TR jet velocity. No significant valvular disease. No significant change from prior study in 09/2020 Procedure: A two-dimensional transthoracic echocardiogram with color flow and Doppler was performed. The study quality was technically difficult. Comparison is made with the echocardiogram of 10/20/2020. The patient was in atrial fibrillation with heart rates between 65-85 bpm during the exam. Left Ventricle: The left ventricle is normal in size. RWT 0.45, normal wall thickness. The ejection fraction is estimated to be 60-65%. Diastolic parameters suggest probable normal left ventricular diastolic function and normal filling pressures. Right Ventricle: The right ventricle is not well visualized. The right ventricular systolic function is normal. Atria: The left atrium is mildly dilated. The right atrium is mildly dilated. There is no Doppler evidence for an interatrial shunt. Mitral Valve: The mitral valve is normal in structure and function. There is mild mitral regurgitation. Aortic Valve: The aortic valve is trileaflet. The aortic valve opens well. There is no aortic valve stenosis. No aortic regurgitation is present. Tricuspid Valve: The tricuspid valve is not well visualized, but is grossly normal. There is a trace or physiologic amount of tricuspid regurgitation. Pulmonary artery pressures cannot be estimated because of the lack of a measurable TR jet velocity. Pulmonic Valve: The pulmonic valve is not well visualized. There is no pulmonic valvular regurgitation. Great Vessels: The aortic root is normal size. The dimensions of the ascending aorta are normal. The IVC is of normal diameter and collapses greater than 50% with a sniff. This suggests a low right atrial pressure of 3 mm Hg. Pericardium/ Pleura There is no pericardial effusion. There is no pleural effusion. MMode/2D Measurements & Calculations LVIDd: 5.3 cm LVOT diam: 2.2 cm LVIDs: 3.4 cm Ao root diam: 2.8 cm FS: 36.7 % asc Aorta Diam: 3.4 cm IVSd: 1.1 cm LVPWd: 1.2 cm LV vasquez. diameter/BSA (cm/m^2): 2.1 LV sys. diameter/BSA (cm/m^2): 1.3 LA A2 area: 28.4 cm2 RA long axis: 6.3 cm LA A4 area: 30.2 cm2 RA area: 25.6 cm2 LA length (vol): 7.1 cm RA vol: 88.1 ml LA vol: 102.1 ml RA : 34.3 ml/m2 LA vol index: 39.8 ml/m2 IVC diam: 2.0 cm TAPSE: 1.8 cm Doppler Measurements & Calculations Ao V2 max: 168.3 cm/sec LVOT Max Juan: 117.2 cm/sec Ao V2 mean: 117.1 cm/sec LV V1 max P.5 mmHg Ao max P.4 mmHg LV V1 VTI: 22.3 cm Ao mean P.1 mmHg JEANETTE(I,D): 2.8 cm2 Ao V2 VTI: 30.8 cm JEANETTE(V,D): 2.7 cm2 sev ratio: 0.73 JEANETTE indexed to BSA (cm^2/m^2): 1.1 MV E max juan: 119.6 cm/sec PA V2 max: 109.4 cm/sec MV A max juan: 1.5 cm/sec PA V2 mean: 76.9 cm/sec MV E/A: 80.6 PA mean P.6 mmHg Med Peak E' Juan: 10.7 cm/sec PA pr(Accel): 36.2 mmHg E/E' med: 11.2 Lat Peak E' Juan: 11.3 cm/sec E/E' lat: 10.6 E/e' average: 10.9 MV dec time: 0.20 sec SV(LVOT): 86.9 ml Reading Physician:HARLEY
== END ==
PROVIDERS: Family Provider Nutritionist; PCP Student in an Organized Health Care Education/Training Program; Referring Provider Family Medicine; Visit Provider Family Medicine
DX: I34.0 Nonrheumatic mitral (valve) insufficiency (principal); I50.32 Chronic diastolic (congestive) heart failure
CPT/HCPCS: 93306

== ENCOUNTER → 2022-01-30 14:39 | Outpatient (CLI) | payer MEDICARE, OTHER, SELFPAY ==
[2022-01-30 17:11] LABS: Blood Urea Nitrogen 33 mg/dL (9-20); Calcium 9.3 mg/dL (8.4-10.2); Carbon Dioxide 29 mmol/L (22-32); Chloride 107 mmol/L (98-107); Cholesterol 166 mg/dL (140-199); Estimated Glomerular Filt Rate 36 mL/min (>60); Glucose 80 mg/dL (80-110); HDL Cholesterol 41 mg/dL (40-60); HEMOLYSIS < 15 (0-50); LDL Cholesterol Calculated 98 mg/dL (<100); Sodium 145 mmol/L (137-145); Triglycerides 133 mg/dL (35-150); Uric Acid 7.5 mg/dL (3.5-8.5)
[2022-01-30 17:12] LABS: Potassium 4.1 mmol/L (3.4-5.1)
[2022-01-30 18:14] LABS: Creatinine Urine Random 103.8 mg/dL
[2022-01-30 20:25] LABS: Microalbumi Creatinin Ratio Ur 8410.4 ug/mg CR (<30)
== END ==
PROVIDERS: Family Provider Nutritionist; PCP Student in an Organized Health Care Education/Training Program; Referring Provider Student in an Organized Health Care Education/Training Program; Visit Provider Student in an Organized Health Care Education/Training Program
DX: E11.9 Type 2 diabetes mellitus without complications (principal); E11.69 Type 2 diabetes mellitus with other specified complication; E66.01 Morbid (severe) obesity due to excess calories; E78.5 Hyperlipidemia, unspecified; M10.9 Gout, unspecified; N18.32 Chronic kidney disease, stage 3b
CPT/HCPCS: 36415; 80048; 80061; 82043; 82570; 83036; 84550

== ENCOUNTER → 2022-03-28 10:02 | Outpatient (CLI) | payer MEDICARE, OTHER, SELFPAY | PROVIDERS: Family Provider Nutritionist; PCP Student in an Organized Health Care Education/Training Program; Referring Provider Student in an Organized Health Care Education/Training Program; Visit Provider Surgery | DX: L98.499 Non-pressure chronic ulcer of skin of other sites with unspecified severity (principal); I87.2 Venous insufficiency (chronic) (peripheral); E11.622 Type 2 diabetes mellitus with other skin ulcer; F42.4 Excoriation (skin-picking) disorder; Z79.01 Long term (current) use of anticoagulants; E66.9 Obesity, unspecified | CPT/HCPCS: 99213; 99214 ==

== ENCOUNTER → 2022-04-27 10:18 | Outpatient (CLI) | payer MEDICARE, OTHER, SELFPAY ==
[2022-04-27 12:49] LABS: BUN Creatinine Ratio 17.7 (6-22); Blood Urea Nitrogen 37 mg/dL (9-20); Estimated Glomerular Filt Rate 35 mL/min (>60)
[2022-04-27 14:16] LABS: Creatinine Urine Random 48.6 mg/dL
[2022-04-27 14:21] LABS: Hemoglobin A1C% w Est Avg Glu 6.9 % (4.0-6.0)
[2022-04-27 19:50] LABS: Microalbumi Creatinin Ratio Ur 2166.6 ug/mg CR (<30); Microalbumin Urine Random 105.3 mg/dL (0-1.6)
== END ==
PROVIDERS: Family Provider Nutritionist; PCP Student in an Organized Health Care Education/Training Program; Referring Provider Student in an Organized Health Care Education/Training Program; Visit Provider Student in an Organized Health Care Education/Training Program
DX: E11.22 Type 2 diabetes mellitus with diabetic chronic kidney disease (principal); N18.32 Chronic kidney disease, stage 3b
CPT/HCPCS: 36415; 82043; 82565; 82570; 83036; 84520

== ENCOUNTER 2022-05-14 08:25 | Emergency (ER) | payer MEDICARE, OTHER, SELFPAY ==
[2022-05-14] VITALS (8 sets, daily range): BP systolic 153–167; BP diastolic 88–99; PULSE 79–89; RESP 24–46; TEMP 37.5; O2SAT 94–96; BMI 50.1
--- NOTE | 2022-05-14 08:29 | ED_ITS ---
HPI - General Adult General Chief complaint: Shortness of Breath/Dyspnea Stated complaint: coughing/swollen gland RT side/night sweats T-4 Time Seen by Provider: 05/14/22 08:28 History of Present Illness HPI narrative: 61-year-old male nonsmoker with history chronic heart failure, coronary artery disease, hypertension, hyperlipidemia, kidney failure presents with his in the chief complaint of about 4 days of worsening cough and exertional shortness of breath. He is not dizzy nor weak or lightheaded. He denies any runny nose but has had some nasal congestion and occasional sore throat. His cough seems to be worse at night but he denies any orthopnea. Deep breath does worsen cough. He is had low-grade subjective fever. He denies any nausea, vomiting or diarrhea. He is had no abdominal pain, constipation. He denies dysuria, frequency or urgency. He denies obvious exposure to ill persons. He denies any change in his medications. He denies any weight gain or lower extremity swelling Related Data Home Medications Medication Instructions Recorded Confirmed clobetasol 0.05 % topical ointment 1 applic topical BID 10/13/20 01/31/22 aspirin 81 mg tablet,delayed 81 mg PO DAILY 12/19/20 01/31/22 release Previous Rx's Medication Instructions Recorded atorvastatin 80 mg tablet 80 mg PO BEDTIME #90 tabs 10/13/21 allopurinol 100 mg tablet 200 mg PO DAILY #180 tabs 11/30/21 losartan 50 mg tablet 50 mg PO DAILY #90 tabs 11/30/21 apixaban 5 mg tablet (Eliquis) 5 mg PO BID #180 tabs 12/22/21 carvedilol 25 mg tablet 25 mg PO BID #180 tabs 02/19/22 gabapentin 300 mg capsule 300 mg PO Q8H #270 caps 03/05/22 glipizide 5 mg tablet 5 mg PO BID #180 tabs 03/20/22 bumetanide 1 mg tablet 1 mg PO BID edema #60 tabs 04/17/22 doxycycline hyclate 100 mg tablet 100 mg PO BID #20 tabs 05/14/22 Allergies Allergy/AdvReac Type Severity Reaction Status Date / Time nitroglycerin Allergy Intermediate increases Verified 05/14/22 09:02 bp hydrochlorothiazide Allergy Mild acute Verified 05/14/22 09:02 renal failure aspirin [ASPIRIN] AdvReac Severe IN ACUTE Verified 05/14/22 09:02 RENAL FAILURE ibuprofen [From MOTRIN] AdvReac Severe IN ACUTE Verified 05/14/22 09:02 RENAL lisinopril [LISINOPRIL] AdvReac Unknown COUGH Verified 05/14/22 09:02 Review of Systems Review of Systems Narrative: GENERAL: See HPI HEENT: See HPI RESPIRATORY: See HPI CARDIOVASCULAR: See HPI GASTROINTESTINAL: Denies nausea, vomiting, abdominal pain, diarrhea, constipation, melena. : Denies dysuria, frequency, incontinence, hematuria, urinary retention. MUSCULOSKELETAL: denies weakness, joint pain, or bony pain SKIN: Denies rash, skin lesions, or other NEUROLOGIC: Denies weakness, headache, numbness, change in speech, confusion, seizures, incoordination. PSYCHIATRIC: No concerning psychosocial issues. 12 point review of systems is negative except for those stated above Patient History Medical History (Updated 05/14/22 @ 10:21 by Connor Zhang DO) Anxiety Atrial fibrillation Chronic heart failure with preserved ejection fraction (HFpEF) Gouty arthritis Hypertension Myocardial infarction [place] stain of face Tinea pedis Social History Smoking Status: Never smoker Smoking Status: Never smoker Substance Use Type: does not use Exam Narrative Exam Narrative: GENERAL: [61] year old patient appears stated age. Well-developed patient, in mild distress. HEAD: Atraumatic. Normocephalic. EYES: Pupils equal round and reactive. Extraocular motions intact. No scleral icterus. No injection or drainage. ENT: Nose without bleeding, purulent drainage. Throat without erythema, tonsillar hypertrophy or exudate. Airway patent. NECK: Trachea midline. Non tender CARDIOVASCULAR: Regular rate and rhythm without murmurs, gallops, or rubs. RESPIRATORY: Clear to auscultation. Breath sounds equal bilaterally. No wheezes, rales, or rhonchi. Deep breath illicits cough GASTROINTESTINAL: Abdomen soft, non-tender, nondistended. EXTREMITIES: No edema or joint tenderness. BACK: Nontender without deformity or crepitance. No flank tenderness. NEURO: AOx3. SKIN: No rash or erythema of visible areas Initial Vital Signs Initial Vital Signs: Vital Signs Pulse Rate 84 05/14/22 08:42 Respiratory Rate 39 H 05/14/22 08:42 Pulse Oximetry 96 05/14/22 08:42 Oxygen Delivery Method 05/14/22 08:42 Course Orders Ordered: ED Orders 05/14/22 08:35 XR chest 2V Stat EKG-12 Lead Stat 05/14/22 08:45 Complete Blood Count AUTO DIFF Stat Comprehensive Metabolic Panel Stat Magnesium Stat NT-proBNP (BNP-Adult 18+) Stat Procalcitonin Stat Prothrombin Time INR Stat Troponin & CK Cardiac Panel Stat 05/14/22 08:50 Covid-19 + FLU A/B + RSV - PCR Stat Vital Signs Vital signs: Vital Signs - 8 hr 05/14/22 08:45 05/14/22 08:42 05/14/22 08:43 Temperature 99.5 F Pulse Rate 88 84 Respiratory Rate 24 39 H Blood Pressure 153/99 H 159/88 H Pulse Oximetry 94 96 Oxygen Delivery Method Room Air Room Air 05/14/22 08:43 05/14/22 09:00 05/14/22 09:00 Temperature Pulse Rate 89 87 Respiratory Rate 46 H 37 H Blood Pressure 167/94 H Pulse Oximetry 94 94 Oxygen Delivery Method Medical Decision Making Lab Data 05/14/22 08:45 05/14/22 08:45 Labs: Lab Results 05/14/22 05/14/22 05/14/22 Range/Units 08:45 08:45 08:45 WBC 11.4 H (4.5-11.0) X10^3/uL RBC 4.81 (4.5-5.9) X10^6/uL Hgb 12.4 L (13.5-17.5) g/dL Hct 40.2 L (41-53) % MCV 83.7 (80-100) fL MCH 25.9 L (26-34) PG MCHC 30.9 (30-36) % RDW 17.6 H (11.6-14.8) % Plt Count 199 (150-400) X10^3/uL Neut % (Auto) 86.5 H (50-75) % Lymph % (Auto) 5.6 L (25-40) % [place] % (Auto) 7.4 (3-14) % Eos % (Auto) 0.2 L (2-4) % Baso % (Auto) 0.3 (0-2) % Neut # (Auto) 9800 H (1564-9319) /uL Lymph # (Auto) 600 L (4556-1482) /uL [place] # (Auto) 800 (0-900) /uL Eos # (Auto) 0 (0-450) /uL Baso # (Auto) 0 (0-100) /uL PT 36.0 H (10.1-12.7) SECONDS INR 3.1 H (0.9-1.3) Sodium 142 (137-145) mmol/L Potassium 3.7 (3.4-5.1) mmol/L Chloride 105 (98-107) mmol/L Carbon Dioxide 29 (22-32) mmol/L BUN 34 H (9-20) mg/dL Creatinine 2.41 H (0.66-1.25) mg/dL Estimated GFR 30 L (>60) mL/min BUN/Creatinine Ratio 14.1 (6-22) Glucose 95 (80-110) mg/dL Calcium 9.1 (8.4-10.2) mg/dL Magnesium 2.3 (1.6-2.3) mg/dL Total Bilirubin 1.3 (0.2-1.3) mg/dL AST 47 (17-59) IU/L ALT 29 (<50) IU/L Alkaline Phosphatase 139 H (38-126) U/L Total Creatine Kinase 527 H (55-170) U/L CK-MB (CK-2) 3.17 H (<2.37) ng/mL CK-MB (CK-2) Rel Index 0.6 L (1.5-5.0) % Troponin I 0.037 H (0.01-0.034) ng/mL NT-Pro-B Natriuret Pep 3860 H (<125) pg/mL Total Protein 7.5 (6.3-8.2) g/dL Albumin 3.8 (3.5-5.0) g/dL Globulin 3.7 (1.7-4.1) g/dL Albumin/Globulin Ratio 1.0 (1.0-2.8) Procalcitonin 1.13 H (<0.5) ng/mL SARS-CoV-2 (PCR) (Negative) Influenza A (RT-PCR) (NEGATIVE) Influenza B (RT-PCR) (NEGATIVE) RSV (PCR) (Negative) 05/14/22 Range/Units 08:50 WBC (4.5-11.0) X10^3/uL RBC (4.5-5.9) X10^6/uL Hgb (13.5-17.5) g/dL Hct (41-53) % MCV (80-100) fL MCH (26-34) PG MCHC (30-36) % RDW (11.6-14.8) % Plt Count (150-400) X10^3/uL Neut % (Auto) (50-75) % Lymph % (Auto) (25-40) % [place] % (Auto) (3-14) % Eos % (Auto) (2-4) % Baso % (Auto) (0-2) % Neut # (Auto) (4403-2667) /uL Lymph # (Auto) (9188-5300) /uL [place] # (Auto) (0-900) /uL Eos # (Auto) (0-450) /uL Baso # (Auto) (0-100) /uL PT (10.1-12.7) SECONDS INR (0.9-1.3) Sodium (137-145) mmol/L Potassium (3.4-5.1) mmol/L Chloride (98-107) mmol/L Carbon Dioxide (22-32) mmol/L BUN (9-20) mg/dL Creatinine (0.66-1.25) mg/dL Estimated GFR (>60) mL/min BUN/Creatinine Ratio (6-22) Glucose (80-110) mg/dL Calcium (8.4-10.2) mg/dL Magnesium (1.6-2.3) mg/dL Total Bilirubin (0.2-1.3) mg/dL AST (17-59) IU/L ALT (<50) IU/L Alkaline Phosphatase (38-126) U/L Total Creatine Kinase (55-170) U/L CK-MB (CK-2) (<2.37) ng/mL CK-MB (CK-2) Rel Index (1.5-5.0) % Troponin I (0.01-0.034) ng/mL NT-Pro-B Natriuret Pep (<125) pg/mL Total Protein (6.3-8.2) g/dL Albumin (3.5-5.0) g/dL Globulin (1.7-4.1) g/dL Albumin/Globulin Ratio (1.0-2.8) Procalcitonin (<0.5) ng/mL SARS-CoV-2 (PCR) Negative (Negative) Influenza A (RT-PCR) Flu a negative (NEGATIVE) Influenza B (RT-PCR) Flu b negative (NEGATIVE) RSV (PCR) Negative (Negative) ECG Data Interpretation: [0851] EKG is atrial fibrillation with rate of 91 and free of any signs of ischemia or ectopy. No ST segmental elevation or depression MDM Narrative Medical decision making narrative: CC: 61-year-old male with cardiac history presents with 4 days of worsening cough. He does have shortness of breath with exertion but denies weight gain, lower extremity swelling or orthopnea. He is had nasal congestion, sore throat and subjective fever Complicating co-morbidities: Age, cardiac history, CHF Data collected from: Patient and Medical records reviewed: Multiple prior notes reviewed Differential considered, but not limited to: COVID, flu, RC, pneumonia, CHF, ischemic cardiac disease versus other Exam documented above, pertinent findings include: No significant work of breathing, bronchospastic cough noted, perhaps very minimal crackles in bases Lab Test results independently reviewed as above. Pertinent findings: Slight elevation in white blood cells with minimal relative left shift, no anemia, procalcitonin is slightly up, BNP slightly elevated from his baseline Independently reviewed EKG as above Imaging studies independently reviewed: Chest x-ray without obvious abnormal findings Discussion: Increasing shortness of breath without significant work of breathing or hypoxemia. Elements of history and physical exam suggest a comb ination of causes likely a slight increase and fluid from an exacerbation of CHF, encouraged him to take extra Bumex for the next few days. Furthermore due to a slight increase in white blood cells and procalcitonin with subjective fever and sputum that has been yellowish there is likely an atypical pneumonia, prescription for doxycycline was sent to his pharmacy of choice. Disposition: see below, along with detailed discharge instructions that have been reviewed with patient as well as indications for ED re-evaluation and additional outpatient follow up Discharge Plan Departure Patient Disposition: Home Clinical Impression: Atypical pneumonia, Acute CHF Instructions: DI for Heart Failure, DI for Atypical Pneumonia Activity Restrictions/Additional Instructions: *You have been diagnosed with [shortness of breath likely due to a combination of slightly worsening congestive heart failure and atypical pneumonia] *What to do: *Please continue to take your regular medications as directed. [ x] New medication prescriptions sent to your pharmacy: [[facility] in [place] ] [x ] as we discussed please take an extra Bumex daily for each of the next 3-4 days and then returned to normal dosing *Please follow up with your primary care provider in 2-3 days, call for an appointment. Let them know you were seen in the Emergency Department and that we ask that you be seen in follow up. We will electronically transmit a record of today's note if your PCP is in our system *Return to Emergency Department if you should have any new, worsening or con cerning symptoms, such as [fever greater than 101 F, shaking chills, worsening pain, persistent vomiting or other bothersome symptoms] Prescriptions: New doxycycline hyclate 100 mg tablet 100 mg PO BID Qty: 20 0RF No Action atorvastatin 80 mg tablet 80 mg PO BEDTIME Qty: 90 3RF Eliquis 5 mg tablet 5 mg PO BID Qty: 180 3RF carvedilol 25 mg tablet 25 mg PO BID Qty: 180 3RF Rx Instructions: must administer with a meal/food glipizide 5 mg tablet 5 mg PO BID Qty: 180 1RF bumetanide 1 mg tablet 1 mg PO BID Qty: 60 0RF clobetasol 0.05 % ointment 1 applic topical BID aspirin 81 mg tablet,delayed release (DR/EC) 81 mg PO DAILY losartan 50 mg tablet 50 mg PO DAILY Qty: 90 3RF allopurinol 100 mg tablet 200 mg PO DAILY Qty: 180 3RF gabapentin 300 mg capsule 300 mg PO Q8H Qty: 270 3RF Referrals: Geoffrey Portillo MD [Primary Care Provider] - Stand Alone Forms: Patient Portal/API
--- NOTE | 2022-05-14 08:35 | DI.RAD.S_ITS ---
PROCEDURE: XR CHEST 2V INDICATIONS: SOB TECHNIQUE: 2 views of the chest were acquired. COMPARISON: [facility], CR, XR CHEST 2V, 01/16/2022, 14:33. FINDINGS: Surgical changes and devices: None. Lungs and pleura: Lungs are clear. No pleural effusions or pneumothorax. Mediastinum: Mediastinal contours are normal. Moderate cardiomegaly, as before. Bones and chest wall: No suspicious bony abnormalities. Soft tissues appear unremarkable. IMPRESSION: Cardiomegaly. No evidence acute pulmonary process. Dictated by: Bryan Barragan M.D. on 05/14/2022 at 9:21 Approved by: Bryan Barragan M.D. on 05/14/2022 at 9:21
[2022-05-14 09:03] LABS: Add Manual Diff / Slide Review NO; Basophils Absolute Auto 0 /uL (0-100); Basophils Percent Auto 0.3 % (0-2); Eosinophils Absolute Auto 0 /uL (0-450); Eosinophils Percent Auto 0.2 % (2-4); Hematocrit 40.2 % (41-53); Hemoglobin 12.4 g/dL (13.5-17.5); Lymphocytes Absolute Auto 600 /uL (1100-4500); Lymphocytes Percent Auto 5.6 % (25-40); Mean Corpuscular HGB Conc 30.9 % (30-36); Mean Corpuscular Hemoglobin 25.9 PG (26-34); Mean Corpuscular Volume 83.7 fL (80-100); Monocytes Absolute Auto 800 /uL (0-900); Monocytes Percent Auto 7.4 % (3-14); Neutrophils Absolute Auto 9800 /uL (1500-7000); Neutrophils Percent Auto 86.5 % (50-75); Platelet Count 199 X10^3/uL (150-400); Red Blood Cell Count 4.81 X10^6/uL (4.5-5.9); Red Cell Distribution Width 17.6 % (11.6-14.8); White Blood Cell Count 11.4 X10^3/uL (4.5-11.0)
[2022-05-14 09:09] LABS: INR 3.1 (0.9-1.3)
[2022-05-14 09:13] LABS: Alanine Aminotransferase 29 IU/L (<50); Albumin 3.8 g/dL (3.5-5.0); Alkaline Phosphatase 139 U/L (38-126); Aspartate Aminotransferase 47 IU/L (17-59); BUN Creatinine Ratio 14.1 (6-22); Bilirubin Total 1.3 mg/dL (0.2-1.3); Blood Urea Nitrogen 34 mg/dL (9-20); Calcium 9.1 mg/dL (8.4-10.2); Carbon Dioxide 29 mmol/L (22-32); Chloride 105 mmol/L (98-107); Creatine Kinase 527 U/L (55-170); Estimated Glomerular Filt Rate 30 mL/min (>60); Globulin 3.7 g/dL (1.7-4.1); Glucose 95 mg/dL (80-110); HEMOLYSIS < 15 (0-50); Magnesium 2.3 mg/dL (1.6-2.3); Potassium 3.7 mmol/L (3.4-5.1); Sodium 142 mmol/L (137-145); Total Protein 7.5 g/dL (6.3-8.2)
[2022-05-14 09:25] LABS: NT-proBNP (BNP-Adult 18+) 3860 pg/mL (<125); Troponin I 0.037 ng/mL (0.01-0.034)
[2022-05-14 09:29] LABS: CKMB % Relative Index 0.6 % (1.5-5.0); Creatine Kinase MB 3.17 ng/mL (<2.37)
[2022-05-14 09:30] LABS: Procalcitonin 1.13 ng/mL (<0.5)
[2022-05-14 09:44] LABS: Influenza A - CEPHEID Flu A NEGATIVE (NEGATIVE); Influenza B - CEPHEID Flu B NEGATIVE (NEGATIVE); Respiratory Syncytial Virus Negative (Negative)
[2022-05-14 09:45] LABS: COVID-19 CEPHEID 4-PLEX PCR Negative (Negative)
== END 2022-05-14 10:59 | disposition home or self-care (01) ==
PROVIDERS: Emergency Provider Emergency Medicine; Family Provider Nutritionist; PCP Student in an Organized Health Care Education/Training Program
DX: J18.9 Pneumonia, unspecified organism (principal); I50.9 Heart failure, unspecified; R50.9 Fever, unspecified; Z79.899 Other long term (current) drug therapy; Z20.822 Contact with and (suspected) exposure to COVID-19
CPT/HCPCS: 0241U; 36415; 71046; 80053; 82550; 82553; 83735; 83880; 84145; 84484; 85025; 85610; 93005; 99284

== ENCOUNTER 2022-08-28 16:37 | Emergency (ER) | payer MEDICARE, OTHER, SELFPAY ==
[2022-08-28] VITALS (13 sets, daily range): BP systolic 176–201; BP diastolic 105–134; PULSE 59–74; RESP 18–22; TEMP 36.7; O2SAT 93–96; BMI 49.5
--- NOTE | 2022-08-28 17:03 | DI.RAD.S_ITS ---
PROCEDURE: XR CHEST 1V INDICATIONS: Shortness of breath TECHNIQUE: One view of the chest was acquired. COMPARISON: [facility], CR, XR CHEST 2V, 05/14/2022, 9:04. [facility], CR, XR CHEST 2V, 01/16/2022, 14:33. FINDINGS: Surgical changes and devices: None. Lungs and pleura: Mild hazy bibasilar opacities. No large pleural effusion or pneumothorax. Mediastinum: Cardiac silhouette is enlarged. Borderline pulmonary vascular congestion. Bones and chest wall: No suspicious bony lesions. Overlying soft tissues appear unremarkable. IMPRESSION: Cardiac silhouette is enlarged with borderline pulmonary vascular congestion. Mild hazy bibasilar opacities are present, could represent atelectasis and/or edema, aspiration or pneumonia difficult to exclude. Dictated by: Arturo Tao M.D. on 08/28/2022 at 18:07 Approved by: Arturo Tao M.D. on 08/28/2022 at 18:09
--- NOTE | 2022-08-28 17:48 | PC.NURSE ---
pt states he has BLE, and has trouble getting around pt states my nose has been stopped up and it makes it hard to breathe, pt went to the doctor and was told he needed to come to the ED. SIMONS has not changed, pt continues to sleep on one pillow, speaks in complete sentences, resp unlabored, states his legs are swollen making it difficult for him to get around. pt does take fluid medicine
[2022-08-28 18:09] LABS: Add Manual Diff / Slide Review NO; Basophils Absolute Auto 100 /uL (0-100); Eosinophils Absolute Auto 200 /uL (0-450); Eosinophils Percent Auto 2.3 % (2-4); Hematocrit 38.7 % (41-53); Hemoglobin 12.4 g/dL (13.5-17.5); Lymphocytes Absolute Auto 1000 /uL (1100-4500); Lymphocytes Percent Auto 13.4 % (25-40); Mean Corpuscular Hemoglobin 27.1 PG (26-34); Mean Corpuscular Volume 84.9 fL (80-100); Monocytes Absolute Auto 500 /uL (0-900); Monocytes Percent Auto 7.1 % (3-14); Neutrophils Absolute Auto 5600 /uL (1500-7000); Neutrophils Percent Auto 76.2 % (50-75); Platelet Count 148 X10^3/uL (150-400); Red Blood Cell Count 4.56 X10^6/uL (4.5-5.9); Red Cell Distribution Width 17.8 % (11.6-14.8); White Blood Cell Count 7.3 X10^3/uL (4.5-11.0)
[2022-08-28 18:18] LABS: Bacteria Urine None Seen; Culture Indicated Urine Cult Not Indicated; RBC Urine 0-1/HPF (0-5/HPF); Squamous Epithelial Cell Urine 1-5 /HPF (0-5/HPF); WBC Urine 0-1/HPF (0-5/HPF)
[2022-08-28 18:18] LABS: Lactate (Lactic Acid) 1.1 mmol/L (0.7-2.1)
[2022-08-28 18:19] LABS: Alanine Aminotransferase 24 IU/L (<50); Albumin 3.8 g/dL (3.5-5.0); Albumin Globulin Ratio 1.2 (1.0-2.8); Alkaline Phosphatase 98 U/L (38-126); Aspartate Aminotransferase 25 IU/L (17-59); BUN Creatinine Ratio 22.6 (6-22); Bilirubin Total 0.8 mg/dL (0.2-1.3); Blood Urea Nitrogen 59 mg/dL (9-20); Calcium 10.1 mg/dL (8.4-10.2); Carbon Dioxide 29 mmol/L (22-32); Chloride 107 mmol/L (98-107); Estimated Glomerular Filt Rate 27 mL/min (>60); Globulin 3.1 g/dL (1.7-4.1); Glucose 168 mg/dL (80-110); HEMOLYSIS < 15 (0-50); Potassium 4.4 mmol/L (3.4-5.1); Sodium 141 mmol/L (137-145); Total Protein 6.9 g/dL (6.3-8.2)
[2022-08-28 18:25] LABS: INR 1.5 (0.9-1.3); Prothrombin Time 16.9 SECONDS (10.1-12.7)
[2022-08-28 18:31] LABS: NT-proBNP (BNP-Adult 18+) 2200 pg/mL (<125); Troponin I 0.017 ng/mL (0.01-0.034)
--- NOTE | 2022-08-28 19:46 | ED.SOB ---
HPI - SOB/Dyspnea General Chief Complaint: Shortness of Breath/Dyspnea Stated Complaint: short of breath, blood pressure issues,sent by MD Time Seen by Provider: 08/28/22 19:46 Source: patient Mode of arrival: Family Vehicle Limitations: no limitations History of Present Illness HPI Narrative: This is a 61-year-old male with history of chronic heart failure, coronary artery disease with cardiac stents, hypertension, dyslipidemia, chronic kidney disease on Eliquis who presents with increasing shortness of breath and swelling in his lower extremities patient states it has been worsening over the past 2 weeks. He actually went to his primary care office and was seen by a different provider who told him to come to the emergency department. He states he went today for better treatment of his blood pressure because he needs dental work done and every time he goes to the office his blood pressure is high. Patient states he is had slowly increasing swelling of his both letter lower extremities. Describes some orthopnea he large pillow to keep him upright. Patient states no fevers or chills. No chest pain or pressure. Patient states he did have a sweaty episode once earlier in the week. He denies fevers or chills. No cold cough or congestion. No nausea or vomiting. No issues with bowel movements. He has been increasing his urination little bit recently. He is no recent medication changes. Patient states no surgeries besides his cardiac stents. Patient states allergic to HCTZ, nitro, aspirin, ibuprofen and lisinopril. Patient states his primary care is Dr. Portillo. Related Data Home Medications Medication Instructions Recorded Confirmed clobetasol 0.05 % topical ointment 1 applic topical BID 10/13/20 08/28/22 Previous Rx's Medication Instructions Recorded atorvastatin 80 mg tablet 80 mg PO BEDTIME #90 tabs 10/13/21 apixaban 5 mg tablet (Eliquis) 5 mg PO BID #180 tabs 12/22/21 carvedilol 25 mg tablet 25 mg PO BID #180 tabs 02/19/22 gabapentin 300 mg capsule 300 mg PO Q8H #270 caps 03/05/22 allopurinol 100 mg tablet 200 mg PO DAILY #180 tabs 06/29/22 glipizide 5 mg tablet 5 mg PO BID #180 tabs 06/29/22 losartan 50 mg tablet 50 mg PO DAILY #90 tabs 06/29/22 bumetanide 1 mg tablet See Rx Instructions .Route 08/23/22 .COMPLEX #60 tabs bumetanide 1 mg tablet 1 mg PO BID #10 tabs 08/28/22 Allergies Allergy/AdvReac Type Severity Reaction Status Date / Time nitroglycerin Allergy Intermediate increases Verified 08/28/22 17:03 bp hydrochlorothiazide Allergy Mild acute Verified 08/28/22 17:03 renal failure aspirin [ASPIRIN] AdvReac Severe IN ACUTE Verified 08/28/22 17:03 RENAL FAILURE ibuprofen [From MOTRIN] AdvReac Severe IN ACUTE Verified 08/28/22 17:03 RENAL lisinopril [LISINOPRIL] AdvReac Unknown COUGH Verified 08/28/22 17:03 Review of Systems Review of Systems ROS Unobtainable: All systems reviewed & are unremarkable except as noted in HPI and below Patient History Medical History Anxiety Atrial fibrillation Chronic heart failure with preserved ejection fraction (HFpEF) Gouty arthritis Hypertension Myocardial infarction [place] stain of face Tinea pedis Social History Smoking Status: Never smoker Smoking Status: Never smoker alcohol intake frequency: 0-2 drinks per day Substance Use Type: does not use Exam Narrative Exam Narrative: GENERAL: Alert and oriented x three, obese male in mild distress. HEENT: Head normocephalic, atraumatic, EOMI, pupils reactive, face symmetric, moist mucous membranes NECK: Supple, full range of motion CARDIOVASCULAR: Regular rate and rhythm without murmurs, rubs or gallops. Bilateral lower extremity edema 2+. RESPIRATORY: Breath sounds equal bilaterally, no wheezes rales or rhonchi. No tachypnea. No accessory muscle use. Speaks in full sentences. ABDOMEN: Soft, nontender. Normoactive bowel sounds all 4 quadrants. No guarding or rebound, rigidity, no mass : No CVA tenderness EXTREMITIES: Normal range of motion, no clubbing or edema. Neurovascularly intact NEUROLOGICAL: Cranial nerves II through XII grossly intact. Moving all extremities SKIN: Warm, dry, no petechiae, no rashes, patient has some dry flaky skin on anterior legs but no wounds. Initial Vital Signs Initial Vital Signs: Vital Signs Temperature 98.0 F 08/28/22 16:54 Pulse Rate 73 08/28/22 16:54 Respiratory Rate 22 08/28/22 16:54 Blood Pressure 200/115 H 08/28/22 16:54 Pulse Oximetry 95 08/28/22 16:54 Oxygen Delivery Method Room Air 08/28/22 16:54 Course Orders Ordered: ED Orders 08/28/22 20:00 Trop I [Troponin I] Stat Discontinued Medications Furosemide 60 mg/ Sodium (Chloride) 56 mls @ 112 mls/hr IV NOW ONE Stop: 08/28/22 20:04 Last Infusion: 08/28/22 20:49 Dose: 0 mls/hr Documented By: Admin: 08/28/22 20:16 Dose: 112 mls/hr Documented By: MARIO Vital Signs Vital signs: Vital Signs - 8 hr 08/28/22 21:00 08/28/22 21:30 08/28/22 21:39 Pulse Rate 64 64 74 Respiratory Rate Blood Pressure Pulse Oximetry 96 96 94 08/28/22 21:39 08/28/22 21:40 08/28/22 21:40 Pulse Rate 63 Respiratory Rate 22 Blood Pressure 201/134 H 188/114 H Pulse Oximetry 95 MDM - SOB/Dyspnea Lab Data 08/28/22 17:40 08/28/22 17:40 Labs: Lab Results 08/28/22 08/28/22 08/28/22 Range/Units 17:26 17:40 17:40 WBC 7.3 (4.5-11.0) X10^3/uL RBC 4.56 (4.5-5.9) X10^6/uL Hgb 12.4 L (13.5-17.5) g/dL Hct 38.7 L (41-53) % MCV 84.9 (80-100) fL MCH 27.1 (26-34) PG MCHC 32.0 (30-36) % RDW 17.8 H (11.6-14.8) % Plt Count 148 L (150-400) X10^3/uL Neut % (Auto) 76.2 H (50-75) % Lymph % (Auto) 13.4 L (25-40) % [place] % (Auto) 7.1 (3-14) % Eos % (Auto) 2.3 (2-4) % Baso % (Auto) 1.0 (0-2) % Neut # (Auto) 5600 (0723-0489) /uL Lymph # (Auto) 1000 L (5715-5128) /uL [place] # (Auto) 500 (0-900) /uL Eos # (Auto) 200 (0-450) /uL Baso # (Auto) 100 (0-100) /uL PT 16.9 H (10.1-12.7) SECONDS INR 1.5 H (0.9-1.3) Sodium (137-145) mmol/L Potassium (3.4-5.1) mmol/L Chloride (98-107) mmol/L Carbon Dioxide (22-32) mmol/L BUN (9-20) mg/dL Creatinine (0.66-1.25) mg/dL Estimated GFR (>60) mL/min BUN/Creatinine Ratio (6-22) Glucose (80-110) mg/dL Lactate (0.7-2.1) mmol/L Calcium (8.4-10.2) mg/dL Total Bilirubin (0.2-1.3) mg/dL AST (17-59) IU/L ALT (<50) IU/L Alkaline Phosphatase (38-126) U/L Troponin I (0.01-0.034) ng/mL NT-Pro-B Natriuret Pep (<125) pg/mL Total Protein (6.3-8.2) g/dL Albumin (3.5-5.0) g/dL Globulin (1.7-4.1) g/dL Albumin/Globulin Ratio (1.0-2.8) Urine RBC 0-1/hpf (0-5/HPF) Urine WBC 0-1/hpf (0-5/HPF) Ur Squamous Epith Cells 1-5 /hpf (0-5/HPF) Urine Bacteria None seen (None) Ur Culture Indicated? Cult not indicated 08/28/22 08/28/22 08/28/22 Range/Units 17:40 17:40 20:00 WBC (4.5-11.0) X10^3/uL RBC (4.5-5.9) X10^6/uL Hgb (13.5-17.5) g/dL Hct (41-53) % MCV (80-100) fL MCH (26-34) PG MCHC (30-36) % RDW (11.6-14.8) % Plt Count (150-400) X10^3/uL Neut % (Auto) (50-75) % Lymph % (Auto) (25-40) % [place] % (Auto) (3-14) % Eos % (Auto) (2-4) % Baso % (Auto) (0-2) % Neut # (Auto) (1296-7724) /uL Lymph # (Auto) (9882-2292) /uL [place] # (Auto) (0-900) /uL Eos # (Auto) (0-450) /uL Baso # (Auto) (0-100) /uL PT (10.1-12.7) SECONDS INR (0.9-1.3) Sodium 141 (137-145) mmol/L Potassium 4.4 (3.4-5.1) mmol/L Chloride 107 (98-107) mmol/L Carbon Dioxide 29 (22-32) mmol/L BUN 59 H (9-20) mg/dL Creatinine 2.61 H (0.66-1.25) mg/dL Estimated GFR 27 L (>60) mL/min BUN/Creatinine Ratio 22.6 H (6-22) Glucose 168 H (80-110) mg/dL Lactate 1.1 (0.7-2.1) mmol/L Calcium 10.1 (8.4-10.2) mg/dL Total Bilirubin 0.8 (0.2-1.3) mg/dL AST 25 (17-59) IU/L ALT 24 (<50) IU/L Alkaline Phosphatase 98 (38-126) U/L Troponin I 0.017 0.018 (0.01-0.034) ng/mL NT-Pro-B Natriuret Pep 2200 H (<125) pg/mL Total Protein 6.9 (6.3-8.2) g/dL Albumin 3.8 (3.5-5.0) g/dL Globulin 3.1 (1.7-4.1) g/dL Albumin/Globulin Ratio 1.2 (1.0-2.8) Urine RBC (0-5/HPF) Urine WBC (0-5/HPF) Ur Squamous Epith Cells (0-5/HPF) Urine Bacteria (None) Ur Culture Indicated? Urine Dip Bedside Urine Glucose Negative Bedside Urine Bilirubin - Negative Bedside Urine Ketone - Negative Urine Specific [place] 1.020 Bedside Urine Occult Blood +/- Bedside Urine pH 6.0 Bedside Urine Protein ++ 100 Bedside Urine Urobilinogen - Negative Bedside Urine Nitrite - Negative Bedside Urine Leukocytes - Negative Esterase Imaging Data Chest x-ray: Radiologist's Impression: Close Chest X-Ray (Signed) Arturo Tao - 08/28/22 Chest X-Ray (Signed) Bryan Barragan - 05/14/22 Echocardiogram Ultrasound (Signed) Alireza Saleem - 01/25/22 EKG Rpt. 01/16/22 Chest X-Ray (Signed) Soraida Mayorga - 01/16/22 Chest X-Ray (Signed) Yue Mcclain - 02/20/21 EKG Rpt. 02/20/21 Chest/Abdomen/Pelvis CTA (Signed) Anson Barber - 12/15/20 Echocardiogram Ultrasound (Signed) Rasta Byrnes - 10/20/20 Chest X-Ray (Signed) Thanh Serrano - 03/15/20 Renal Ultrasound (Signed) Yue Mcclain - 11/13/17 Launch?[place] [address] XRay Report Signed Patient: Imtiaz Spears MR#: [id number] : 1960 Acct:[id number] Age/Sex: 61 / M Date of Service: 08/28/22 Loc: ED Accession Number: [id number] ?? Procedure: XR chest 1V Ordering Provider: Luba Jordan D.O. PROCEDURE:? XR CHEST 1V ? INDICATIONS:? Shortness of breath ? TECHNIQUE:? One view of the chest was acquired.? ? COMPARISON:? [facility], CR, XR CHEST 2V, 05/14/2022, 9:04.? [facility], CR, XR CHEST 2V, 01/16/2022, 14:33. ? FINDINGS:? ? Surgical changes and devices:? None.? ? Lungs and pleura:? Mild hazy bibasilar opacities.? No large pleural effusion or pneumothorax. ? Mediastinum:? Cardiac silhouette is enlarged.? Borderline pulmonary vascular congestion. ? Bones and chest wall:? No suspicious bony lesions.? Overlying soft tissues appear unremarkable.? ? IMPRESSION:? Cardiac silhouette is enlarged with borderline pulmonary vascular congestion.? Mild hazy bibasilar opacities are present, could represent atelectasis and/or edema, aspiration or pneumonia difficult to exclude. ? ? Dictated by: Arturo Tao M.D. on 08/28/2022 at 18:07 ? ? Approved by: Arturo Tao M.D. on 08/28/2022 at 18:09?? ECG Data Attestation: I personally reviewed and interpreted this ECG as follows: Prior ECG tracings: available for review Interpretation: AFib rate of 72 QRS of 98 QTC 394. No acute changes. Patient has prior which does not show any progressive or new dynamic changes. AFib, rate of 68, QRS of [address]TC [address] No acute ST changes appreciated. A little bit difficult patient has a little bit more what appears to be motion artifact. MDM Narrative Medical decision making narrative: This is a 61-year-old male with known cardiac disease, CHF who had echo on 01/25/2022 that showed AFib with an EF of 60-65% normal left ventricle incise normal wall thickness, right ventricle systolic function was normal mildly dilated left atrium and right atrium. Patient's workup today including CBC shows platelets of 148 INR is 1.5 expected with his Eliquis, creatinine today is 2.61 was 2.4 on last check, patient's LFTs and troponin are negative with a BNP of 2200. No acute EKG changes chest x-ray shows changes seem most consistent with congestion less likely to be pneumonia patient has not had any infectious changes. Patient's ambulatory pulse ox is appropriate. He is hypertensive here in the department. Discharge Plan Departure Patient Disposition: Home Clinical Impression: Chronic heart failure with preserved ejection fraction (HFpEF), CKD (chronic kidney disease) Instructions: Congestive Heart Failure (Alternative Therapy) Activity Restrictions/Additional Instructions: Please follow-up with your physician in the next day or 2 for recheck and to address your blood pressure and diabetes medications more closely. You will also need to have your labs including your renal function rechecked. Please call in the morning to set up an appointment for recheck. After talking with the physician see if they are comfortable increasing your losartan from 50 mg to 100 mg versus starting a different medication for blood pressure control. Increase your Bumex from 1 mg daily to 1 mg twice daily x 5 days. Prescription printed. Please return for new or worsening chest pain, shortness of breath, lightheadedness or passing out, increasing swelling of your extremities, recurrent diaphoresis or sweatiness, or other new or concerning changes Prescriptions: New bumetanide 1 mg tablet 1 mg PO BID Qty: 10 0RF No Action atorvastatin 80 mg tablet 80 mg PO BEDTIME Qty: 90 3RF Eliquis 5 mg tablet 5 mg PO BID Qty: 180 3RF carvedilol 25 mg tablet 25 mg PO BID Qty: 180 3RF Rx Instructions: must administer with a meal/food allopurinol 100 mg tablet 200 mg PO DAILY Qty: 180 1RF glipizide 5 mg tablet 5 mg PO BID Qty: 180 1RF losartan 50 mg tablet 50 mg PO DAILY Qty: 90 1RF bumetanide 1 mg tablet See Rx Instructions .ROUTE .COMPLEX Qty: 60 0RF Dose Instruction: TAKE 1 TABLET BY MOUTH TWICE DAILY FOR SWELLING Rx Instructions: TAKE 1 TABLET BY MOUTH TWICE DAILY FOR SWELLING clobetasol 0.05 % ointment 1 applic topical BID gabapentin 300 mg capsule 300 mg PO Q8H Qty: 270 3RF Referrals: Jeremias Corona MD [Primary Care Provider] - Stand Alone Forms: Patient Portal/API
--- NOTE | 2022-08-28 20:11 | PC.NURSE ---
pt ambulated to the bathroom and back to room with O2 sat 95%
[2022-08-28] MEDS: FUROSEMIDE 60 MG in SODIUM CHLORIDE 0.9% 50 ML 112 MG IV (20:16)
[2022-08-28 20:43] LABS: Troponin I 0.018 ng/mL (0.01-0.034)
== END 2022-08-28 21:58 | disposition home or self-care (01) ==
PROVIDERS: Emergency Medicine; Emergency Provider Emergency Medicine; Family Provider Nutritionist; PCP Pediatrics
DX: I13.0 Hypertensive heart and chronic kidney disease with heart failure and stage 1 through stage 4 chronic kidney disease, or unspecified chronic kidney disease (principal); I50.32 Chronic diastolic (congestive) heart failure; N18.9 Chronic kidney disease, unspecified
CPT/HCPCS: 36415; 71045; 80053; 81003; 81015; 83605; 83880; 84484; 85025; 85610; 93005; 93010; 96365; 99284; J1940

== ENCOUNTER 2022-09-01 22:24 | Emergency (ER) | payer MEDICARE, OTHER, SELFPAY ==
[2022-09-01 22:37] VITALS: BP 130/87; PULSE 56; RESP 18; TEMP 36.1; O2SAT 95; BMI 47.7
--- NOTE | 2022-09-01 22:50 | PC.NURSE ---
Calling poison control
[2022-09-01 22:51] VITALS: PULSE 62; RESP 21; O2SAT 92
[2022-09-01 22:53] VITALS: BP 122/70; PULSE 61; RESP 23; O2SAT 92
--- NOTE | 2022-09-01 22:56 | PC.NURSE ---
Spoke with poison control, Enrrique, , recommend OBS, fax sheet sent over, given to provider.
[2022-09-01 23:00] VITALS: BP 119/70; PULSE 64; RESP 20; O2SAT 91
[2022-09-01 23:37] VITALS: PULSE 69; O2SAT 92
[2022-09-01 23:38] VITALS: BP 131/70; PULSE 65; RESP 21; O2SAT 96
[2022-09-01] MEDS: DEXTROSE 5%-0.9% NS 1,000 ML 84 ML IV (23:40)
[2022-09-01 23:47] LABS: Fractionated Inspired Oxygen 21; HCO3 VBG 28 mmol/L (24-28); Oxygen Saturation VBG 70 % (70-75); PCO2 VBG 47.6 mmHg (45-50); PO2 VBG 38 mmHg (35-45); Total CO2 VBG 29 mmol/L (24-29); pH VBG 7.37 (7.33-7.43)
[2022-09-01 23:48] LABS: Add Manual Diff / Slide Review NO; Basophils Absolute Auto 100 /uL (0-100); Basophils Percent Auto 0.6 % (0-2); Eosinophils Absolute Auto 200 /uL (0-450); Eosinophils Percent Auto 1.9 % (2-4); Hematocrit 41.2 % (41-53); Hemoglobin 13.5 g/dL (13.5-17.5); Lymphocytes Absolute Auto 900 /uL (1100-4500); Lymphocytes Percent Auto 9.2 % (25-40); Mean Corpuscular HGB Conc 32.7 % (30-36); Mean Corpuscular Volume 85.6 fL (80-100); Monocytes Absolute Auto 600 /uL (0-900); Monocytes Percent Auto 6.2 % (3-14); Neutrophils Absolute Auto 7900 /uL (1500-7000); Neutrophils Percent Auto 82.1 % (50-75); Platelet Count 166 X10^3/uL (150-400); Red Blood Cell Count 4.81 X10^6/uL (4.5-5.9); Red Cell Distribution Width 17.8 % (11.6-14.8); White Blood Cell Count 9.6 X10^3/uL (4.5-11.0)
[2022-09-02] VITALS (15 sets, daily range): BP systolic 150–168; BP diastolic 81–99; PULSE 56–69; RESP 15–33; O2SAT 92–99
[2022-09-02 00:01] LABS: Alanine Aminotransferase 30 IU/L (<50); Albumin 4.1 g/dL (3.5-5.0); Albumin Globulin Ratio 1.2 (1.0-2.8); Alkaline Phosphatase 138 U/L (38-126); Aspartate Aminotransferase 31 IU/L (17-59); BUN Creatinine Ratio 21.3 (6-22); Bilirubin Total 0.8 mg/dL (0.2-1.3); Blood Urea Nitrogen 48 mg/dL (9-20); Carbon Dioxide 28 mmol/L (22-32); Chloride 109 mmol/L (98-107); Estimated Glomerular Filt Rate 32 mL/min (>60); Globulin 3.5 g/dL (1.7-4.1); Glucose 102 mg/dL (80-110); HEMOLYSIS < 15 (0-50); Potassium 4.1 mmol/L (3.4-5.1); Sodium 143 mmol/L (137-145); Total Protein 7.6 g/dL (6.3-8.2)
[2022-09-02 00:12] LABS: Troponin I 0.016 ng/mL (0.01-0.034)
--- NOTE | 2022-09-02 02:58 | ED_ITS ---
HPI - General Adult General Chief complaint: Toxicology Problem Stated complaint: Took medication twice Time Seen by Provider: 09/01/22 23:11 Source: patient Mode of arrival: Ambulatory History of Present Illness HPI narrative: 61-year-old gentleman with a history of coronary artery disease post stenting, hypertension, atrial fibrillation currently on apixaban, hyperlipidemia, gout, congestive heart failure, peripheral neuropathy and diabetes who was in his usual state of health this evening took his medications went outside to do some chores came back saw his evening medications still out and took his evening dose of medications again. Evening medications include carvedilol 25 mg, atorvastatin 80 mg, Eliquis 5 mg, gabapentin 300 mg, allopurinol 100 mg, glipizide 5 mg and bumetanide 1 mg. Patient presents concerned that he took an extra dose of each of these medications. Poison control was contacted and their biggest concern was his glipizide. Please note patient was 151 kilos typically takes glipizide 5 mg b.i.d. and tonight took a total of 10 mg. He is slightly sleepy but having no other complaints or concerns at this time. There is no indication but this was anything but accidental. Related Data Home Medications Medication Instructions Recorded Confirmed gabapentin 300 mg capsule 300 mg PO BID 09/01/22 09/01/22 Previous Rx's Medication Instructions Recorded atorvastatin 80 mg tablet 80 mg PO BEDTIME #90 tabs 10/13/21 apixaban 5 mg tablet (Eliquis) 5 mg PO BID #180 tabs 12/22/21 carvedilol 25 mg tablet 25 mg PO BID #180 tabs 02/19/22 allopurinol 100 mg tablet 200 mg PO DAILY #180 tabs 06/29/22 glipizide 5 mg tablet 5 mg PO BID #180 tabs 06/29/22 losartan 50 mg tablet 50 mg PO DAILY #90 tabs 06/29/22 bumetanide 1 mg tablet 1 mg PO BID #10 tabs 08/28/22 amlodipine 5 mg tablet 5 mg PO DAILY #30 tabs 09/02/22 Allergies Allergy/AdvReac Type Severity Reaction Status Date / Time nitroglycerin Allergy Intermediate increases Verified 09/01/22 22:32 bp hydrochlorothiazide Allergy Mild acute Verified 09/01/22 22:32 renal failure aspirin [ASPIRIN] AdvReac Severe IN ACUTE Verified 09/01/22 22:32 RENAL FAILURE ibuprofen [From MOTRIN] AdvReac Severe IN ACUTE Verified 09/01/22 22:32 RENAL lisinopril [LISINOPRIL] AdvReac Unknown COUGH Verified 09/01/22 22:32 Review of Systems Review of Systems Narrative: Pertinent positive and negative findings as per HPI Patient History Medical History Anxiety Atrial fibrillation Chronic heart failure with preserved ejection fraction (HFpEF) Gouty arthritis Hypertension Myocardial infarction [place] stain of face Tinea pedis Social History Smoking Status: Never smoker Smoking Status: Never smoker alcohol intake frequency: 0-2 drinks per day Substance Use Type: does not use Exam Initial Vital Signs Initial Vital Signs: Vital Signs Temperature 97.0 F L 09/01/22 22:37 Pulse Rate 56 L 09/01/22 22:37 Respiratory Rate 18 09/01/22 22:37 Blood Pressure 130/87 09/01/22 22:37 Pulse Oximetry 95 09/01/22 22:37 Oxygen Delivery Method Room Air 09/01/22 22:37 General: Somewhat somnolent but in no acute distress. Tangential history. Well-nourished well-developed Respiratory: Lungs are clear to auscultation, no wheezing no rales no rhonchi. Full and symmetrical air movement Cardiac: Regular rate and rhythm no murmurs no bruits Abdomen: Soft, obese, nontender, good bowel tones, no flank pain Skin: Warm and dry, no rashes Neurologic: Grossly neurologically intact with no obvious asymmetries or abnormalities Extremities: No trauma, well perfused,2+ lower extremity edema chronic Psych: Cooperative, appropriate insight and affect Course Orders Ordered: ED Orders 09/01/22 23:13 VBG [Venous Blood Gas] Stat 09/01/22 23:30 CBC Auto Diff [Complete Blood Count AUTO DIFF] Stat CMP [Comprehensive Metabolic Panel] Stat Trop I [Troponin I] Stat Dextrose/Sodium Chloride (Dextrose 5%-0.9% Ns) 1,000 mls @ 84 mls/hr IV CONT EUSEBIO Last Infusion: 09/02/22 05:47 Dose: 0 mls/hr Documented By: Infusion: 09/02/22 00:50 Dose: 0 mls/hr Documented By: Admin: 09/01/22 23:40 Dose: 84 mls/hr Documented By: BS Discontinued Medications Amlodipine Besylate (Amlodipine 5 Mg Tablet) 5 mg PO NOW ONE Stop: 09/02/22 03:44 Last Admin: 09/02/22 03:58 Dose: 5 mg Documented By: WILFREDO Vital Signs Vital signs: Vital Signs - 8 hr 09/01/22 22:37 09/01/22 22:51 09/01/22 22:53 Temperature 97.0 F L Pulse Rate 56 L 62 61 Respiratory Rate 18 21 23 Blood Pressure 130/87 Pulse Oximetry 95 92 92 Oxygen Delivery Method Room Air Room Air Room Air 09/01/22 22:53 09/01/22 23:00 09/01/22 23:00 Temperature Pulse Rate 64 Respiratory Rate 20 Blood Pressure 122/70 119/70 Pulse Oximetry 91 Oxygen Delivery Method 09/01/22 23:37 09/01/22 23:38 09/01/22 23:38 Temperature Pulse Rate 69 65 Respiratory Rate 21 Blood Pressure 131/70 Pulse Oximetry 92 96 Oxygen Delivery Method Room Air 09/02/22 00:00 09/02/22 00:00 09/02/22 00:30 Temperature Pulse Rate 60 63 Respiratory Rate 18 18 Blood Pressure 151/81 H Pulse Oximetry 93 92 Oxygen Delivery Method 09/02/22 01:00 09/02/22 01:01 09/02/22 01:01 Temperature Pulse Rate 62 64 Respiratory Rate 19 24 Blood Pressure 152/88 H Pulse Oximetry 95 95 Oxygen Delivery Method Room Air 09/02/22 01:30 09/02/22 02:00 09/02/22 02:00 Temperature Pulse Rate 64 57 L Respiratory Rate 23 18 Blood Pressure 150/97 H Pulse Oximetry 94 96 Oxygen Delivery Method Room Air 09/02/22 02:30 09/02/22 03:00 09/02/22 03:00 Temperature Pulse Rate 56 L 60 Respiratory Rate 17 15 Blood Pressure 160/99 H Pulse Oximetry 93 95 Oxygen Delivery Method 09/02/22 03:30 09/02/22 04:00 09/02/22 04:30 Temperature Pulse Rate 60 66 58 L Respiratory Rate 24 33 H 24 Blood Pressure Pulse Oximetry 99 98 98 Oxygen Delivery Method 09/02/22 05:00 09/02/22 05:30 09/02/22 06:00 Temperature Pulse Rate 61 63 69 Respiratory Rate 23 25 H 18 Blood Pressure Pulse Oximetry 97 98 97 Oxygen Delivery Method Room Air Room Air 09/02/22 06:09 09/02/22 06:09 Temperature Pulse Rate 61 Respiratory Rate 17 Blood Pressure 168/96 H Pulse Oximetry 98 Oxygen Delivery Method Medical Decision Making Lab Data 09/01/22 23:30 09/01/22 23:30 Labs: Lab Results 09/01/22 09/01/22 09/01/22 Range/Units 23:13 23:30 23:30 WBC 9.6 (4.5-11.0) X10^3/uL RBC 4.81 (4.5-5.9) X10^6/uL Hgb 13.5 (13.5-17.5) g/dL Hct 41.2 (41-53) % MCV 85.6 (80-100) fL MCH 28.0 (26-34) PG MCHC 32.7 (30-36) % RDW 17.8 H (11.6-14.8) % Plt Count 166 (150-400) X10^3/uL Neut % (Auto) 82.1 H (50-75) % Lymph % (Auto) 9.2 L (25-40) % [place] % (Auto) 6.2 (3-14) % Eos % (Auto) 1.9 L (2-4) % Baso % (Auto) 0.6 (0-2) % Neut # (Auto) 7900 H (9722-9675) /uL Lymph # (Auto) 900 L (5886-4502) /uL [place] # (Auto) 600 (0-900) /uL Eos # (Auto) 200 (0-450) /uL Baso # (Auto) 100 (0-100) /uL VBG pH 7.37 (7.33-7.43) VBG pCO2 47.6 (45-50) mmHg VBG pO2 38 (35-45) mmHg VBG HCO3 28 (24-28) mmol/L VBG Total CO2 29 (24-29) mmol/L VBG O2 Saturation 70 (70-75) % VBG Base Excess 2.0 (0-4) mmol/L FiO2 21 Sodium 143 (137-145) mmol/L Potassium 4.1 (3.4-5.1) mmol/L Chloride 109 H (98-107) mmol/L Carbon Dioxide 28 (22-32) mmol/L BUN 48 H (9-20) mg/dL Creatinine 2.25 H (0.66-1.25) mg/dL Estimated GFR 32 L (>60) mL/min BUN/Creatinine Ratio 21.3 (6-22) Glucose 102 (80-110) mg/dL Calcium 9.0 (8.4-10.2) mg/dL Total Bilirubin 0.8 (0.2-1.3) mg/dL AST 31 (17-59) IU/L ALT 30 (<50) IU/L Alkaline Phosphatase 138 H (38-126) U/L Troponin I 0.016 (0.01-0.034) ng/mL Total Protein 7.6 (6.3-8.2) g/dL Albumin 4.1 (3.5-5.0) g/dL Globulin 3.5 (1.7-4.1) g/dL Albumin/Globulin Ratio 1.2 (1.0-2.8) Point of Care Testing Glucose POC 110 Point of care testing: Point of Care Testing Glucose POC 110 MDM Narrative Medical decision making narrative: CC: Double dose of night medications, this is an acute incident uncertain pro gnosis Complicating co-morbidities: Complex medical history, polypharmacy with poor understanding of his overall medications Data collected from: patient, Social determinants of health that may influence the patients condition: Recently lost his primary care provider difficult accessing health care Medical records reviewed: Primary care notes from August and February are all reviewed Differential considered: Adverse effects polypharmacy, suicide attempt, Exam documented above, pertinent findings include: Patient is slightly somnolent but exam is otherwise at its baseline. Lab Test results independently reviewed as above. Pertinent findings: CBC is unremarkable Chemistries are reassuring. His baseline chronic kidney disease is at a baseline of 2.2 creatinine. BUN is at 48. Calcium is appropriate. Troponin is unremarkable Independently reviewed EKG rate controlled atrial fibrillation at a rate of 54. No acute ischemic changes Treatments: Telemetry observation, blood sugar monitoring hourly Re-evaluations: Patient is re-evaluated at 3:20 a.m.. Still slightly sleepy. He has some questions regarding blood pressure. Apparently it is elevated and has continued to be elevated and he is [facility] as long as his blood pressure is poorly controlled. Discussion: 61-year-old gentleman with multiple medical issues who took an ext ra dose of his usual nighttime medications. Being monitored for heart rate given the total 50 mg of carvedilol consumed and blood sugars are being monitored given the 10 mg of glipizide. I suspect he sleepy from the 600 mg of gabapentin. Does not seem to be having significant effect from the 2 mg of bumetanide. Despite extra doses of carvedilol losartan and bumetanide his blood pressure continues to be significantly elevated. He is quite frustrated overall with advice he is getting as he has currently no access to medical care and would like to get his blood pressure down. With his chronic kidney disease he may well benefit from seeing search engine optimization strategist but will see if there is some options I can suggest while he is working on continued outpatient access to care. Regarding blood pressure options current medication is losartan 50 mg daily and with GFR at 32 increasing this probably is not going to be all that effective. He has a chronic cough with lisinopril He is on maximum doses of carvedilol He is on a diuretic In looking through records I am not seeing in the indication of calcium channel blockers and will suggest that he add amlodipine to his usual medications Additionally patient has questions regarding adding ozempic or other glp-1 antagonist to help diabetes, weight loss and CHF. Does recognize that weight loss would help with all of his issues but is unable to lose weight while on glipizide and too large to exercise. Finally, has questions about testosterone. Was prescribed testosterone but not given syringes for injection and willing/able to do home injections Please see detailed discharge instructions below for final recommendations Discharge Plan Departure Patient Disposition: Home Clinical Impression: Chronic heart failure with preserved ejection fraction (HFpEF), Low testosterone in male Hypertension Qualifiers: Hypertension type: primary hypertension Qualified Code(s): I10 - Essential (primary) hypertension Atrial fibrillation Qualifiers: Atrial fibrillation type: longstanding persistent Qualified Code(s): I48.11 - Longstanding persistent atrial fibrillation Type 2 diabetes mellitus Qualifiers: Diabetes mellitus halfway insulin use: without halfway use Activity Restrictions/Additional Instructions: Thank you for coming in today With the double dose of medication accidentally taken last night, you are doing well. You had a number of questions and will need to talk to a primary care doctor about them. Please call Dr Portillo's office and let them know you were in the ER and need follow up regarding blood pressure, heart failure and diabetes in the next 2 weeks. You will need to see one of the other doctors in that clinic. Regarding medications: THIS morning please TAKE - Eliquis 5mg, losartan 50mg, Bumetanide 2mg (this is a new dose, =2 pills). Do NOT take allopurinal, atorvastatin, carvedilol, gabapentin or glipizide. Tonight, go back to your usual medications. Tomorrow, increase your bumetanide to 2mg every morning to help with congestive heart failure, leg edema and blood pressure. Add amlodipine to your daily meds to try and get your blood pressure better controlled. [place] When you follow up with the primary care doctor, take this list in with you to discuss each point. I would encourage you to MAKE A LIST BEFORE EVERY SINGLE DOCTOR VISIT so you can get all of your issues addressed. Try to stick to the list 1. diabetes: would adding a medication like Ozempic help with my diabetes and heart failure? 2. blood pressure: you need to check blood pressure daily and bring in the list. Should you continue the amlodipine? 3. Heart failure and LE edema: we increased your bumetanide to 2mg in the am and 1mg at night. Bring in a list of your daily weight to help the doctor. 4. Ask about testosterone. You have been given a prescription but no way to inject it. What are clinic protocols for nurse visits for regular injections With the new blood pressure medication and increase in the diuretic, your doctor may want to check your kidney function with a lab test to make sure your chronic kidney issues are not getting any worse. Prescriptions: New amlodipine 5 mg tablet 5 mg PO DAILY Qty: 30 0RF No Action atorvastatin 80 mg tablet 80 mg PO BEDTIME Qty: 90 3RF Eliquis 5 mg tablet 5 mg PO BID Qty: 180 3RF carvedilol 25 mg tablet 25 mg PO BID Qty: 180 3RF Rx Instructions: must administer with a meal/food allopurinol 100 mg tablet 200 mg PO DAILY Qty: 180 1RF glipizide 5 mg tablet 5 mg PO BID Qty: 180 1RF losartan 50 mg tablet 50 mg PO DAILY Qty: 90 1RF bumetanide 1 mg tablet 1 mg PO BID Qty: 10 0RF gabapentin 300 mg capsule 300 mg PO BID Referrals: Jeremias Corona MD [Primary Care Provider] - Stand Alone Forms: Patient Portal/API
[2022-09-02] MEDS: AMLODIPINE 5 MG TABLET PO (03:58)
== END 2022-09-02 07:02 | disposition home or self-care (01) ==
PROVIDERS: Emergency Provider Emergency Medicine; Family Provider Nutritionist; PCP Pediatrics
DX: I50.32 Chronic diastolic (congestive) heart failure (principal); I10 Essential (primary) hypertension; I48.11 Longstanding persistent atrial fibrillation; Z79.01 Long term (current) use of anticoagulants; R79.89 Other specified abnormal findings of blood chemistry; E11.9 Type 2 diabetes mellitus without complications
CPT/HCPCS: 80053; 82805; 82962; 84484; 85025; 93005; 93010; 99284

== ENCOUNTER 2022-10-15 16:51 | Emergency (ER) | payer MEDICARE, OTHER, SELFPAY ==
[2022-10-15] VITALS (37 sets, daily range): BP systolic 185–228; BP diastolic 94–127; PULSE 60–80; RESP 18–20; TEMP 36.2–36.6; O2SAT 94–97; BMI 50.6
[2022-10-15] MEDS: LACTATED RINGERS 1,000 ML 100 ML IV (15:15)
--- NOTE | 2022-10-15 16:01 | SUR.PREOP ---
1500 BP 199/115 PROVIDER MADE AWARE. BP RECHECKED 218/118. PROVIDER AGAIN MADE AWARE
--- NOTE | 2022-10-15 16:09 | SUR.PREOP ---
INITIAL BP 199/115. PROVIDER MADE AWARE. REPEAT BP 214/118. PROVIDER AGAIN MADE AWARE.
--- NOTE | 2022-10-15 16:38 | PM.HP.1 ---
History of Present Illness History of Present Illness Date Patient Seen: 10/15/22 Time Patient Seen: 16:38 [place] [facility] [place] Positive Cologuard. Off Eliquis. Here for colonoscopy. Reports on years of lower extremity edema. Worse in the last couple of months. The patient has high blood pressure here in preop. He reports on some chest tightness. [facility] Medical History Anxiety Atrial fibrillation Chronic heart failure with preserved ejection fraction (HFpEF) Gouty arthritis Hypertension Myocardial infarction [place] stain of face Tinea pedis Social History household members: spouse Smoking Status: Never smoker alcohol intake: current Meds Home Medications and Allergies Home Medications Medication Instructions Recorded Confirmed Type atorvastatin 80 mg tablet 80 mg PO BEDTIME #90 tabs 10/13/21 10/15/22 Rx apixaban 5 mg tablet (Eliquis) 5 mg PO BID #180 tabs 12/22/21 10/15/22 Rx carvedilol 25 mg tablet 25 mg PO BID #180 tabs 02/19/22 10/15/22 Rx glipizide 5 mg tablet 5 mg PO BID #180 tabs 06/29/22 10/15/22 Rx losartan 50 mg tablet 50 mg PO DAILY #90 tabs 06/29/22 10/15/22 Rx gabapentin 300 mg capsule 300 mg PO BID 09/01/22 10/15/22 History amlodipine 5 mg tablet 5 mg PO DAILY #30 tabs 09/02/22 10/15/22 Rx allopurinol 100 mg tablet mg PO BID 10/15/22 History bumetanide 1 mg tablet See Rx Instructions .Route 10/15/22 10/15/22 Rx .COMPLEX #60 tabs Allergies Allergy/AdvReac Type Severity Reaction Status Date / Time nitroglycerin Allergy Intermediate increases Verified 10/15/22 15:36 bp hydrochlorothiazide Allergy Mild acute Verified 10/15/22 15:36 renal failure aspirin [ASPIRIN] AdvReac Severe IN ACUTE Verified 10/15/22 15:36 RENAL FAILURE ibuprofen [From MOTRIN] AdvReac Severe IN ACUTE Verified 10/15/22 15:36 RENAL lisinopril [LISINOPRIL] AdvReac Unknown COUGH Verified 10/15/22 15:36 Review of Systems Review of Systems ROS: Yes All systems reviewed with the patient and are negative except as otherwise documented Exam Vital Signs (past 8 hours): - 10/15/22 15:16 Temperature 97.1 F L Pulse Rate 78 Respiratory Rate 20 Blood Pressure 199/115 H Pulse Oximetry 97 Oxygen Delivery Method Room Air Oxygen Delivery Method Room Air Const General: cooperative HENMT Head: normal to inspection Eyes General: appearance normal, both eyes and all related structures Neck Neck: normal visual inspection Chest Chest: normal inspection of the chest Resp Effort & Inspection: normal respiratory effort Cardio Rate: regular rate GI Inspection: normal to inspection Skin General: no rashes or lesions noted Neuro General: patient alert and patient awake Extrem General: edema Psych Appearance: grossly normal Assessment & Plan Assessment & Plan narrative: 61-year-old male with a positive Cologuard. He is in need of colonoscopy but unfortunately has hypertension and some chest tightness. We are cancelling the procedure today and sending the patient to the emergency room for further evaluation.
--- NOTE | 2022-10-15 16:38 | SUR.PREOP ---
8035 - Dr Blackwood requests consultation with pt's PCP, Dr Corona. Spoke with Sharonda at office. Dr Corona will call back to Endo [facility] for Dr Blackwood. at bedside. Pt awaits disposition.
--- NOTE | 2022-10-15 16:57 | SUR.PREOP ---
1530 - bp 199/115. Pt denies cp or sob. provider made aware. Pt cont's to deny cp, sob throughout pre-op period. 1630 - pt up to bathroom. walking back, pt c/o mild chest pressure. case cancelled per Dr Blackwood. ER Dr. given report by Dr Blackwood and pt transported to ER room 10 with face mask at 10L and monitor technician in place. Pt states chest pressure resolved at present. Report given to Elli CHANDLER. Care transferred to ER physician.
--- NOTE | 2022-10-15 16:58 | DI.RAD.S_ITS ---
PROCEDURE: XR CHEST 1V INDICATIONS: chest pain TECHNIQUE: One view of the chest was acquired. COMPARISON: Merged With [facility], CR, XR CHEST 1V, 08/28/2022, 17:20. FINDINGS: Surgical changes and devices: None. Lungs and pleura: Lungs are clear. No pleural effusions or pneumothorax. Mediastinum: Mediastinal contours appear normal. Heart size is enlarged. Bones and chest wall: No suspicious bony lesions. Overlying soft tissues appear unremarkable. IMPRESSION: No acute pulmonary process. Dictated by: Soraida Mayorga M.D. on 10/15/2022 at 17:19 Approved by: Soraida Mayorga M.D. on 10/15/2022 at 17:19
[2022-10-15 17:29] LABS: Add Manual Diff / Slide Review NO; Basophils Absolute Auto 100 /uL (0-100); Basophils Percent Auto 1.1 % (0-2); Eosinophils Absolute Auto 200 /uL (0-450); Eosinophils Percent Auto 2.4 % (2-4); Hematocrit 40.6 % (41-53); Lymphocytes Absolute Auto 1000 /uL (1100-4500); Lymphocytes Percent Auto 13.6 % (25-40); Mean Corpuscular Hemoglobin 27.3 PG (26-34); Mean Corpuscular Volume 85.1 fL (80-100); Monocytes Absolute Auto 500 /uL (0-900); Monocytes Percent Auto 6.6 % (3-14); Neutrophils Absolute Auto 5800 /uL (1500-7000); Neutrophils Percent Auto 76.3 % (50-75); Platelet Count 182 X10^3/uL (150-400); Red Blood Cell Count 4.77 X10^6/uL (4.5-5.9); Red Cell Distribution Width 16.5 % (11.6-14.8); White Blood Cell Count 7.6 X10^3/uL (4.5-11.0)
[2022-10-15 17:37] LABS: INR 1.3 (0.9-1.3); Prothrombin Time 15.4 SECONDS (10.1-12.7)
[2022-10-15 17:40] LABS: PTT Partial Thromboplastin Tim 31 SECONDS (26-36)
[2022-10-15 17:42] LABS: Alanine Aminotransferase 25 IU/L (<50); Albumin 3.8 g/dL (3.5-5.0); Albumin Globulin Ratio 1.2 (1.0-2.8); Alkaline Phosphatase 127 U/L (38-126); Aspartate Aminotransferase 30 IU/L (17-59); BUN Creatinine Ratio 12.5 (6-22); Bilirubin Total 0.8 mg/dL (0.2-1.3); Blood Urea Nitrogen 26 mg/dL (9-20); Calcium 9.1 mg/dL (8.4-10.2); Carbon Dioxide 30 mmol/L (22-32); Chloride 109 mmol/L (98-107); Creatine Kinase 74 U/L (55-170); Estimated Glomerular Filt Rate 35 mL/min (>60); Globulin 3.2 g/dL (1.7-4.1); Glucose 86 mg/dL (80-110); HEMOLYSIS 23 (0-50); Lipase 576 U/L (23-300); Magnesium 2.4 mg/dL (1.6-2.3); Potassium 4.3 mmol/L (3.4-5.1); Sodium 144 mmol/L (137-145)
[2022-10-15 17:52] LABS: Troponin I 0.015 ng/mL (0.01-0.034)
--- NOTE | 2022-10-15 18:13 | ED_ITS ---
HPI - Chest Pain General Chief Complaint: Chest Pain Stated Complaint: Chest presssure Time Seen by Provider: 10/15/22 18:12 Source: other Mode of arrival: other History of Present Illness HPI narrative: 61-year-old male nonsmoker with history of heart failure, hypertension, AFib, diabetes presents with a chief complaint of chest pressure. He was scheduled for an outpatient colonoscopy and presented with elevated blood pressure. He lyons d developed some chest pressure upon walking to the restroom that lasted about 2-3 minutes and had resolved long before his arrival in the emergency department. He denies any ongoing pain on arrival here. No clear provocation or palliation, no radiation, no associated symptoms such as diaphoresis or shortness of breath. He has no nausea or vomiting. Related Data Home Medications Medication Instructions Recorded Confirmed gabapentin 300 mg capsule 300 mg PO BID 09/01/22 10/15/22 allopurinol 100 mg tablet mg PO BID 10/15/22 Previous Rx's Medication Instructions Recorded atorvastatin 80 mg tablet 80 mg PO BEDTIME #90 tabs 10/13/21 apixaban 5 mg tablet (Eliquis) 5 mg PO BID #180 tabs 12/22/21 carvedilol 25 mg tablet 25 mg PO BID #180 tabs 02/19/22 glipizide 5 mg tablet 5 mg PO BID #180 tabs 06/29/22 losartan 50 mg tablet 50 mg PO DAILY #90 tabs 06/29/22 amlodipine 5 mg tablet 5 mg PO DAILY #30 tabs 09/02/22 bumetanide 1 mg tablet See Rx Instructions .Route 10/15/22 .COMPLEX #60 tabs Allergies Allergy/AdvReac Type Severity Reaction Status Date / Time nitroglycerin Allergy Intermediate increases Verified 10/15/22 15:36 bp hydrochlorothiazide Allergy Mild acute Verified 10/15/22 15:36 renal failure aspirin [ASPIRIN] AdvReac Severe IN ACUTE Verified 10/15/22 15:36 RENAL FAILURE ibuprofen [From MOTRIN] AdvReac Severe IN ACUTE Verified 10/15/22 15:36 RENAL lisinopril [LISINOPRIL] AdvReac Unknown COUGH Verified 10/15/22 15:36 Review of Systems Review of Systems Narrative: GENERAL: Denies chills, fatigue, malaise, fever, sweats. HEENT: Denies sinus pain, ear pain, sore throat, difficulty swallowing, dizziness. RESPIRATORY: Denies dyspnea, cough, wheezing, hemoptysis, sputum. CARDIOVASCULAR: See HPI GASTROINTESTINAL: Denies nausea, vomiting, abdominal pain, diarrhea, constipation, melena. : Denies dysuria, frequency, incontinence, hematuria, urinary retention. MUSCULOSKELETAL: denies weakness, joint pain, or bony pain SKIN: Denies rash, skin lesions, or other NEUROLOGIC: Denies weakness, headache, numbness, change in speech, confusion, seizures, incoordination. PSYCHIATRIC: No concerning psychosocial issues. 12 point review of systems is negative except for those stated above Patient History Medical History Anxiety Atrial fibrillation Chronic heart failure with preserved ejection fraction (HFpEF) Gouty arthritis Hypertension Myocardial infarction Port-wine stain of face Tinea pedis Social History household members: spouse Smoking Status: Never smoker alcohol intake: current Smoking Status: Never smoker alcohol intake frequency: holidays/special occasions only Substance Use Type: does not use Exam Narrative Exam Narrative: GENERAL: [61] year old patient appears stated age. Well-developed patient, in mild distress. HEAD: Atraumatic. Normocephalic. EYES: Pupils equal round and reactive. Extraocular motions intact. No scleral icterus. No injection or drainage. ENT: Nose without bleeding, purulent drainage. Throat without erythema, tonsillar hypertrophy or exudate. Airway patent. NECK: Trachea midline. Non tender CARDIOVASCULAR: Regular rate and rhythm without murmurs, gallops, or rubs. RESPIRATORY: Clear to auscultation. Breath sounds equal bilaterally. No wheezes, rales, or rhonchi. GASTROINTESTINAL: Abdomen soft, non-tender, nondistended. EXTREMITIES: No edema or joint tenderness. BACK: Nontender without deformity or crepitance. No flank tenderness. NEURO: AOx3. SKIN: No rash or erythema of visible areas Initial Vital Signs Initial Vital Signs: Vital Signs Temperature 97.1 F L 10/15/22 15:16 Pulse Rate 78 10/15/22 15:16 Respiratory Rate 20 10/15/22 15:16 Blood Pressure 199/115 H 10/15/22 15:16 Pulse Oximetry 97 10/15/22 15:16 Oxygen Delivery Method Room Air 10/15/22 15:16 Course Orders Ordered: ED Orders 10/15/22 20:25 Troponin & CK Cardiac Panel Stat Discontinued Medications Carvedilol (Carvedilol 12.5 Mg Tablet) 25 mg PO NOW ONE Stop: 10/15/22 19:25 Last Admin: 10/15/22 19:48 Dose: Not Given Documented By: ABRAHAN Carvedilol (Carvedilol 12.5 Mg Tablet) 25 mg PO NOW ONE Stop: 10/15/22 19:48 Last Admin: 10/15/22 20:02 Dose: 25 mg Documented By: DEEPTI Lactated Ringer's (Lactated Ringers) 1,000 mls @ 100 mls/hr IV NOW ONE Stop: 10/16/22 01:11 Last Infusion: 10/15/22 17:20 Dose: 0 mls/hr Documented By: Admin: 10/15/22 15:15 Dose: 100 mls/hr Documented By: CARLOS ALBERTO Labetalol HCl (Labetalol 20 Mg/4 Ml Syringe) 20 mg IV NOW ONE Stop: 10/15/22 21:22 Last Admin: 10/15/22 21:49 Dose: 20 mg Documented By: ABRAHAN Vital Signs Vital signs: Vital Signs - 8 hr 10/15/22 21:49 10/15/22 21:30 10/15/22 21:30 Pulse Rate 68 70 Blood Pressure 206/103 H 216/103 H Pulse Oximetry 95 Oxygen Delivery Method 10/15/22 21:50 10/15/22 21:50 10/15/22 21:56 Pulse Rate 65 60 Blood Pressure 206/103 H Pulse Oximetry 94 95 Oxygen Delivery Method Room Air 10/15/22 21:56 10/15/22 22:14 10/15/22 21:59 Pulse Rate 65 67 Blood Pressure 197/109 H 198/110 H Pulse Oximetry 94 Oxygen Delivery Method 10/15/22 22:00 10/15/22 22:05 10/15/22 22:10 Pulse Rate 65 70 67 Blood Pressure Pulse Oximetry 95 94 94 Oxygen Delivery Method 10/15/22 22:15 10/15/22 22:15 10/15/22 22:20 Pulse Rate 62 66 Blood Pressure 187/111 H Pulse Oximetry 95 95 Oxygen Delivery Method 10/15/22 22:25 10/15/22 22:25 10/15/22 22:30 Pulse Rate 65 69 Blood Pressure 196/98 H Pulse Oximetry 95 95 Oxygen Delivery Method 10/15/22 22:35 10/15/22 22:35 10/15/22 22:40 Pulse Rate 62 66 Blood Pressure 185/102 H Pulse Oximetry 94 94 Oxygen Delivery Method 10/15/22 22:46 10/15/22 22:46 10/15/22 22:50 Pulse Rate 63 63 Blood Pressure 195/94 H Pulse Oximetry 95 95 Oxygen Delivery Method 10/15/22 22:55 10/15/22 23:00 10/15/22 23:05 Pulse Rate 67 64 67 Blood Pressure Pulse Oximetry 95 95 96 Oxygen Delivery Method 10/15/22 23:09 Pulse Rate 70 Blood Pressure Pulse Oximetry Oxygen Delivery Method MDM - Chest Pain Lab Data 10/15/22 17:20 10/15/22 17:20 Labs: Lab Results 10/15/22 10/15/22 10/15/22 Range/Units 17:20 17:20 17:20 WBC 7.6 (4.5-11.0) X10^3/uL RBC 4.77 (4.5-5.9) X10^6/uL Hgb 13.0 L (13.5-17.5) g/dL Hct 40.6 L (41-53) % MCV 85.1 (80-100) fL MCH 27.3 (26-34) PG MCHC 32.0 (30-36) % RDW 16.5 H (11.6-14.8) % Plt Count 182 (150-400) X10^3/uL Neut % (Auto) 76.3 H (50-75) % Lymph % (Auto) 13.6 L (25-40) % [place] % (Auto) 6.6 (3-14) % Eos % (Auto) 2.4 (2-4) % Baso % (Auto) 1.1 (0-2) % Neut # (Auto) 5800 (5431-3387) /uL Lymph # (Auto) 1000 L (8778-7203) /uL [place] # (Auto) 500 (0-900) /uL Eos # (Auto) 200 (0-450) /uL Baso # (Auto) 100 (0-100) /uL PT 15.4 H (10.1-12.7) SECONDS INR 1.3 (0.9-1.3) APTT 31 (26-36) SECONDS Sodium 144 (137-145) mmol/L Potassium 4.3 (3.4-5.1) mmol/L Chloride 109 H (98-107) mmol/L Carbon Dioxide 30 (22-32) mmol/L BUN 26 H (9-20) mg/dL Creatinine 2.08 H (0.66-1.25) mg/dL Estimated GFR 35 L (>60) mL/min BUN/Creatinine Ratio 12.5 (6-22) Glucose 86 (80-110) mg/dL Calcium 9.1 (8.4-10.2) mg/dL Magnesium 2.4 H (1.6-2.3) mg/dL Total Bilirubin 0.8 (0.2-1.3) mg/dL AST 30 (17-59) IU/L ALT 25 (<50) IU/L Alkaline Phosphatase 127 H (38-126) U/L Total Creatine Kinase 74 (55-170) U/L Troponin I 0.015 (0.01-0.034) ng/mL Total Protein 7.0 (6.3-8.2) g/dL Albumin 3.8 (3.5-5.0) g/dL Globulin 3.2 (1.7-4.1) g/dL Albumin/Globulin Ratio 1.2 (1.0-2.8) Lipase 576 H (23-300) U/L // Range/Units 20:25 WBC (4.5-11.0) X10^3/uL RBC (4.5-5.9) X10^6/uL Hgb (13.5-17.5) g/dL Hct (41-53) % MCV (80-100) fL MCH (26-34) PG MCHC (30-36) % RDW (11.6-14.8) % Plt Count (150-400) X10^3/uL Neut % (Auto) (50-75) % Lymph % (Auto) (25-40) % [place] % (Auto) (3-14) % Eos % (Auto) (2-4) % Baso % (Auto) (0-2) % Neut # (Auto) (9152-4930) /uL Lymph # (Auto) (2532-7389) /uL [place] # (Auto) (0-900) /uL Eos # (Auto) (0-450) /uL Baso # (Auto) (0-100) /uL PT (10.1-12.7) SECONDS INR (0.9-1.3) APTT (26-36) SECONDS Sodium (137-145) mmol/L Potassium (3.4-5.1) mmol/L Chloride (98-107) mmol/L Carbon Dioxide (22-32) mmol/L BUN (9-20) mg/dL Creatinine (0.66-1.25) mg/dL Estimated GFR (>60) mL/min BUN/Creatinine Ratio (6-22) Glucose (80-110) mg/dL Calcium (8.4-10.2) mg/dL Magnesium (1.6-2.3) mg/dL Total Bilirubin (0.2-1.3) mg/dL AST (17-59) IU/L ALT (<50) IU/L Alkaline Phosphatase (38-126) U/L Total Creatine Kinase 75 (55-170) U/L Troponin I 0.013 (0.01-0.034) ng/mL Total Protein (6.3-8.2) g/dL Albumin (3.5-5.0) g/dL Globulin (1.7-4.1) g/dL Albumin/Globulin Ratio (1.0-2.8) Lipase (23-300) U/L Point of Care Testing Glucose POC 85 MDM Narrative Medical decision making narrative: [61] year old patient presents with brief episode of chest pain Multiple etiologies for patient's symptoms considered including, but not limited to: [Hypertension versus cardiac ischemia versus musculoskeletal versus GERD versus other] Prior Charts reviewed in our EMR Primary Historian: patient Labs reviewed and interpreted by myself: Labs unremarkable, without a significant need for intervention, troponin x2 negative Imaging reviewed: Chest x-ray without acute findings Patient's symptoms improved over duration of stay with above-stated therapies. Findings and discharge diagnosis discussed with patient/family followed by verbalization of understanding Return precautions discussed with patient/family whom verbalize understanding of diagnosis and plan Discharge Plan Departure Patient Disposition: Home Clinical Impression: Hypertension Instructions: High Blood Pressure Activity Restrictions/Additional Instructions: *You have been diagnosed with [hypertension and brief chest pain. As we discussed your history and physical exam are reassuring as are the labs and EKGs. There is no evidence of heart attack or other significant abnormality at this time. Your blood pressure is elevated but thankfully your not having symptoms as a consequence of the blood pressure currently.] *What to do: * as we discussed please return to prior dosing of your Lasix at 40 mg twice daily and stop the Bumex. Otherwise, please continue to take your regular medications as directed. *Please follow up with your primary care provider in 2-3 days, call for an appointment. Let them know you were seen in the Emergency Department and that we ask that you be seen in follow up. We will electronically transmit a record of today's note if your PCP is in our system *Return to Emergency Department if you should have any new, worsening or concerning symptoms, such as [fever greater than 101 F, shaking chills, worsening pain, persistent vomiting or other bothersome symptoms] Prescriptions: No Action atorvastatin 80 mg tablet 80 mg PO BEDTIME Qty: 90 3RF Eliquis 5 mg tablet 5 mg PO BID Qty: 180 3RF carvedilol 25 mg tablet 25 mg PO BID Qty: 180 3RF Rx Instructions: must administer with a meal/food glipizide 5 mg tablet 5 mg PO BID Qty: 180 1RF losartan 50 mg tablet 50 mg PO DAILY Qty: 90 1RF bumetanide 1 mg tablet See Rx Instructions .ROUTE .COMPLEX Qty: 60 0RF Dose Instruction: TAKE 1 TABLET BY MOUTH TWICE DAILY FOR SWELLING Rx Instructions: TAKE 1 TABLET BY MOUTH TWICE DAILY FOR SWELLING allopurinol 100 mg tablet PO BID gabapentin 300 mg capsule 300 mg PO BID amlodipine 5 mg tablet 5 mg PO DAILY Qty: 30 0RF Referrals: Jeremias Corona MD [Primary Care Provider] - Stand Alone Forms: Patient Portal/API
[2022-10-15] MEDS: carvediloL 12.5 MG TABLET 25 MG PO (20:02)
[2022-10-15 21:36] LABS: Creatine Kinase 75 U/L (55-170)
[2022-10-15 21:49] LABS: Troponin I 0.013 ng/mL (0.01-0.034)
[2022-10-15] MEDS: LABETALOL 20 MG/4 ML SYRINGE IV (21:49)
== END 2022-10-15 23:28 | disposition home or self-care (01) ==
LOC: ED 16:51
PROVIDERS: Emergency Medicine; Emergency Provider Emergency Medicine; Family Provider Nutritionist; PCP Pediatrics; Referring Provider Internal Medicine Gastroenterology; Visit Provider Internal Medicine Gastroenterology
DX: I10 Essential (primary) hypertension (principal); R07.9 Chest pain, unspecified
CPT/HCPCS: 36415; 71045; 80053; 82550; 83690; 83735; 84484; 85025; 85610; 85730; 93005; 96361; 96374; 99284; J2704

== ENCOUNTER 2022-12-10 12:23 | Day surgery (SDC) | payer MEDICARE, OTHER, SELFPAY ==
[2022-12-10] VITALS (7 sets, daily range): BP systolic 115–174; BP diastolic 62–98; PULSE 70–87; RESP 14–20; TEMP 36.2–36.6; O2SAT 96–99; BMI 46.5
--- NOTE | 2022-12-10 | PATH_ITS ---
[facility] Accession Number: [id number] No. of containers..04 Tissue . 01 Material submitted: . PART A: cecum - CECUM POLYP PART B: colon - TRANSVERSE POLYP PART C: colon - DESCENDING POLYP PART D: sigmoid colon - SIGMOID POLYP . 01 Diagnosis: A. Cecum, Polyp: Tubular adenoma, 2 fragments. . B. Transverse Colon, Polyp: Tubular adenoma. Sessile serrated adenoma. . C. Descending Colon, Polyp: Tubular adenoma. Hyperplastic polyp. . D. Sigmoid Colon, Polyp: Hyperplastic polyp, 2 fragments. [facility] 12/14/2022 1514 Local . 01 Electronically signed: . Sasha Wesley MD, Pathologist NPI- [id number] . 01 Gross description: . Part A: CECUM POLYP: Received in formalin is 2 fragment(s) of moralez, soft tissue measuring 0.5 x 0.4 x 0.4 cm to 0.4 x 0.3 x 0.3 cm submitted entirely in 1 cassette(s) Part B: TRANSVERSE POLYP: Received in formalin is 2 fragment(s) of moralez, soft tissue measuring 0.7 x 0.6 x 0.5 cm to 0.3 x 0.3 x 0.2 cm submitted entirely in 1 cassette(s) Part C: DESCENDING POLYP: Received in formalin is 2 fragment(s) of moralez, soft tissue measuring 1.0 x 0.8 x 0.7 cm to 0.6 x 0.3 x 0.3 cm submitted entirely in 1 cassette(s) Part D: SIGMOID POLYP: Received in formalin is multiple fragment(s) of moralez, soft tissue measuring 1.0 x 0.8 x 0.3 cm in aggregate submitted entirely in 1 cassette(s) /ROMY 12/13/2022 0128 Local . 01 Pathologist provided ICD-10: D12.0, D12.3, D12.4 . 01 CPT . 105734, 565467, 443867, 405649 Specimen Comment: A courtesy copy of this report has been sent to [phone] Performed at: 01 [facility] [address] [place] [address], [place], [place] [id number] MD Magdiel Garcia MD Phone: [phone]
--- NOTE | 2022-12-10 13:41 | PM.HP.1 ---
History of Present Illness History of Present Illness Date Patient Seen: 12/10/22 Time Patient Seen: 13:41 Chief complaint: SDC Narrative: Positive Cologuard. PFSH Medical History Anxiety Atrial fibrillation Chronic heart failure with preserved ejection fraction (HFpEF) Gouty arthritis Hypertension Myocardial infarction Port-wine stain of face Tinea pedis Social History household members: spouse Smoking Status: Never smoker alcohol intake: current Meds Home Medications and Allergies Home Medications Medication Instructions Recorded Confirmed Type glipizide 5 mg tablet 5 mg PO BID #180 tabs 06/29/22 12/10/22 Rx losartan 50 mg tablet 50 mg PO DAILY #90 tabs 06/29/22 12/10/22 Rx allopurinol 100 mg tablet 100 mg PO BID #60 tabs 10/24/22 12/10/22 Rx apixaban 5 mg tablet (Eliquis) 5 mg PO BID #180 tabs 10/24/22 12/10/22 Rx atorvastatin 80 mg tablet 80 mg PO BEDTIME #90 tabs 10/24/22 12/10/22 Rx carvedilol 25 mg tablet 25 mg PO BID #180 tabs 10/24/22 12/10/22 Rx furosemide 40 mg tablet 40 mg PO BID #60 tabs 10/24/22 12/10/22 Rx Allergies Allergy/AdvReac Type Severity Reaction Status Date / Time nitroglycerin Allergy Intermediate increases Verified 12/10/22 13:39 bp hydrochlorothiazide Allergy Mild acute Verified 12/10/22 13:39 renal failure aspirin [ASPIRIN] AdvReac Severe IN ACUTE Verified 12/10/22 13:39 RENAL FAILURE ibuprofen [From MOTRIN] AdvReac Severe IN ACUTE Verified 12/10/22 13:39 RENAL lisinopril [LISINOPRIL] AdvReac Unknown COUGH Verified 12/10/22 13:39 Review of Systems Review of Systems ROS: Yes All systems reviewed with the patient and are negative except as otherwise documented Exam Const General: cooperative Nutritional Appearance: obese HENMT Head: normal to inspection Eyes General: appearance normal, both eyes and all related structures Neck Other: Large neck Chest Chest: normal inspection of the chest Resp Effort & Inspection: normal respiratory effort Cardio Rate: regular rate GI Inspection: normal to inspection Skin Other: Port-wine stain right side of the face. Neuro General: patient alert and patient awake Extrem Right lower extremity: edema Left lower extremity: edema Psych Appearance: grossly normal Assessment & Plan Assessment & Plan narrative: 62-year-old male with a positive Cologuard. Colonoscopy is pursued today.
--- NOTE | 2022-12-10 13:44 | PM.PREOP ---
Pre-operative Note Interval Note History & Physical reviewed/Exam performed by Physician: Yes Changes to H&P: No ASA Class (for procedural sedation): III
[2022-12-10] MEDS: LACTATED RINGERS 1,000 ML 100 ML IV (13:49)
--- NOTE | 2022-12-10 14:38 | PM.OP.COLON ---
Operative Date/Time/Diagnoses Date of procedure: 12/10/22 Time of procedure: 14:38 Pre-op diagnosis: Positive Cologuard Post-op diagnosis: same Procedure & Clinicians Study performed: Colonoscopy with hot snare polypectomies Same procedure as scheduled: Yes Indications: Positive Cologuard Surgeon: Steven Blackwood Procedure Notes SCOAP/Timeout: Done Procedure in detail: After the risks and benefits were explained, written and verbal informed consent was obtained. The patient was brought into the procedure room and placed into the left lateral decubitus position. Please see anesthesia note for sedation details. Digital rectal examination was accomplished. The scope was introduced into the patient and advanced under direct visualization to the cecum as identified by the appendiceal orifice and ileocecal valve. The scope was slowly withdrawn to carefully examine the mucosa for any defects or lesions. Comprehensive imaging was accomplished throughout the rectum including the dentate line. The colon was decompressed, the scope was then removed from the patient who tolerated the procedure well. Adult colonoscope Bowel prep fair Scope withdrawal time: 26 minutes Sedation minutes: 32 Complications: none Impression: The patient had a fairly lengthy redundant colon. There was some diverticulosis in the left colon. There was an approximately 8 mm polyp in the cecum removed with hot snare. In the transverse colon there were 3 polyps removed with hot snare ranging in size from 5-10 mm. In the descending colon there was a sessile 7 mm polyp and a pedunculated 12 mm polyp removed with hot snare. In the sigmoid there was a 7 mm sessile and 9 mm sessile polyp removed with hot snare. Endoscopic diagnosis 1. Multiple colon polyps 2. Diverticulosis Post-procedure Plan for aftercare: 1. Await histopathology. 2. Repeat colonoscopy 3 years. 3. Okay to resume Eliquis starting tomorrow evening. Disposition: PACU
[2022-12-10] MEDS: ALBUTEROL/IPRATROPIUM 3 ML AMPUL INH (14:50)
--- NOTE | 2022-12-10 14:57 | SUR.PHASEI ---
Pt is doing a duaneb right now for some upper airway wheezes.
== END 2022-12-10 15:48 | disposition home or self-care (01) ==
PROVIDERS: PCP Pediatrics; Referring Provider Internal Medicine Gastroenterology; Visit Provider Internal Medicine Gastroenterology
PROC: 0DJD8ZZ Inspection of Lower Intestinal Tract, Via Natural or Artificial Opening Endoscopic (ICD-10-PCS; CPT 45378; principal; 2022-12-10 14:00)
DX: Z12.11 Encounter for screening for malignant neoplasm of colon (principal); R19.5 Other fecal abnormalities; K57.30 Diverticulosis of large intestine without perforation or abscess without bleeding; D12.0 Benign neoplasm of cecum; D12.3 Benign neoplasm of transverse colon; D12.4 Benign neoplasm of descending colon
CPT/HCPCS: 45385; J2704

== ENCOUNTER → 2022-12-13 09:03 | Outpatient (CLI) | payer MEDICARE, OTHER, SELFPAY ==
[2022-12-13 10:03] LABS: Hemoglobin A1C% w Est Avg Glu 6.9 % (4.0-6.0)
[2022-12-13 11:30] LABS: BUN Creatinine Ratio 16.4 (6-22); Blood Urea Nitrogen 38 mg/dL (9-20); Calcium 9.8 mg/dL (8.4-10.2); Carbon Dioxide 28 mmol/L (22-32); Chloride 107 mmol/L (98-107); Estimated Glomerular Filt Rate 31 mL/min (>60); Glucose 137 mg/dL (80-110); HEMOLYSIS < 15 (0-50); Potassium 4.4 mmol/L (3.4-5.1); Sodium 142 mmol/L (137-145)
== END ==
PROVIDERS: PCP Pediatrics; Referring Provider Pediatrics; Visit Provider Pediatrics
DX: E11.9 Type 2 diabetes mellitus without complications (principal); N18.32 Chronic kidney disease, stage 3b; E66.01 Morbid (severe) obesity due to excess calories; I10 Essential (primary) hypertension; I48.91 Unspecified atrial fibrillation
CPT/HCPCS: 36415; 80048; 83036

== ENCOUNTER 2022-12-25 14:46 | Emergency (ER) | payer MEDICARE, OTHER, SELFPAY ==
[2022-12-25 14:51] VITALS: BP 190/112; PULSE 66; RESP 20; TEMP 37; O2SAT 97; BMI 46.0
[2022-12-25 14:53] VITALS: PULSE 75; O2SAT 97
[2022-12-25 14:54] VITALS: BP 190/112; PULSE 66; O2SAT 97
[2022-12-25 15:00] VITALS: BP 186/113; PULSE 70; O2SAT 95
--- NOTE | 2022-12-25 15:06 | DI.RAD.S_ITS ---
PROCEDURE: XR RIBS LT MIN 3V W CXR1V INDICATIONS: L posterior lower rib pain after fall TECHNIQUE: 4 views of the left ribs were acquired, along with a single view chest. COMPARISON: [facility], , XR CHEST 1V, 10/15/2022, 16:56. FINDINGS: Surgical changes and devices: None. Bones and chest wall: No fractures or dislocations. No suspicious bony lesions. Overlying soft tissues appear unremarkable. Lungs and pleura: No pleural effusions or pneumothorax. Lungs appear clear. Mediastinum: Mediastinal contours appear normal. Heart is mildly enlarged. IMPRESSION: No displaced rib fracture. No acute cardiopulmonary disease process. Dictated by: Yue Mcclain MD, PhD on 12/25/2022 at 15:43 Approved by: Yue Mcclain MD, PhD on 12/25/2022 at 15:44
--- NOTE | 2022-12-25 15:06 | ED_ITS ---
HPI - Fall General Chief Complaint: Fall Stated Complaint: fell t-14/doesnt feel better Time Seen by Provider: 12/25/22 14:58 Source: patient Mode of arrival: Wheelchair History of Present Illness HPI Narrative: Patient is a 62-year-old male. He is on anticoagulation. Two weeks ago he was on a ladder where he fell over and landed on his left side. He did not have any specific injury from the event. He did hit his head. There was no loss of consciousness. Since that time he has had left-sided rib pain and left shoulder pain. He went to his chiropractor yesterday however they wanted him evaluated prior to any sort of treatment. He is no new symptoms from the fall. Related Data Previous Rx's Medication Instructions Recorded glipizide 5 mg tablet 5 mg PO BID #180 tabs 06/29/22 losartan 50 mg tablet 50 mg PO DAILY #90 tabs 06/29/22 allopurinol 100 mg tablet 100 mg PO BID #60 tabs 10/24/22 apixaban 5 mg tablet (Eliquis) 5 mg PO BID #180 tabs 10/24/22 atorvastatin 80 mg tablet 80 mg PO BEDTIME #90 tabs 10/24/22 carvedilol 25 mg tablet 25 mg PO BID #180 tabs 10/24/22 furosemide 40 mg tablet 40 mg PO BID #60 tabs 10/24/22 Allergies Allergy/AdvReac Type Severity Reaction Status Date / Time nitroglycerin Allergy Intermediate increases Verified 12/13/22 08:01 bp hydrochlorothiazide Allergy Mild acute Verified 12/13/22 08:01 renal failure aspirin [ASPIRIN] AdvReac Severe IN ACUTE Verified 12/13/22 08:01 RENAL FAILURE ibuprofen [From MOTRIN] AdvReac Severe IN ACUTE Verified 12/13/22 08:01 RENAL lisinopril [LISINOPRIL] AdvReac Unknown COUGH Verified 12/13/22 08:01 Review of Systems Constitutional Constitutional: Reports system reviewed and no additional complaints, except as documented ENT Ears, Nose, Mouth, and Throat: Reports system reviewed and no additional complaints, except as documented Cardiovascular Cardiovascular: Reports system reviewed and no additional complaints, except as documented Respiratory Respiratory: Reports system reviewed and no additional complaints, except as documented Gastrointestinal Gastrointestinal: Reports system reviewed and no additional complaints, except as documented Integumentary/Breasts Skin/Breast: Reports system reviewed and no additional complaints, except as documented Neurologic Neurologic: Reports system reviewed and no additional complaints, except as documented Hematologic/Lymphatic On Anticoagulants: Yes Patient History Medical History Anxiety Atrial fibrillation Chronic heart failure with preserved ejection fraction (HFpEF) Gouty arthritis Hypertension Myocardial infarction [place]-wine stain of face Tinea pedis Social History household members: spouse Smoking Status: Never smoker alcohol intake: current Smoking Status: Never smoker alcohol intake frequency: holidays/special occasions only Substance Use Type: does not use Exam Initial Vital Signs Initial Vital Signs: Vital Signs Temperature 98.6 F 12/25/22 14:51 Pulse Rate 66 12/25/22 14:51 Respiratory Rate 20 12/25/22 14:51 Blood Pressure 190/112 H 12/25/22 14:51 Pulse Oximetry 97 12/25/22 14:51 Oxygen Delivery Method Room Air 12/25/22 14:51 Const General: cooperative, comfortable and No ill appearing HENNY Head: normal to inspection and normocephalic Resp Effort & Inspection: normal respiratory effort Auscultation: clear to auscultation bilaterally Cardio Rate: regular rate Rhythm: regular rhythm GI Inspection: normal to inspection Neuro General: patient alert, patient awake, patient oriented x3 and moves all extremities Extrem Other: Patient does have tenderness to palpation of the top of his left shoulder and behind his left shoulder. He also has tenderness paraspinal in the lower ribs on the left. He is ambulatory. No lower extremity Course Orders Ordered: ED Orders 12/25/22 15:06 XR ribs LT min 3V w CXR1V Stat XR shoulder LT min 2V Stat Vital Signs Vital signs: Vital Signs - 8 hr 12/25/22 14:51 Temperature 98.6 F Pulse Rate 66 Respiratory Rate 20 Blood Pressure 190/112 H Pulse Oximetry 97 Oxygen Delivery Method Room Air MDM - Fall Imaging Data Extremity x-ray #1: Radiologist's Impression: PROCEDURE:? XR SHOULDER LT MIN 2V ? INDICATIONS:? pain after fall ? TECHNIQUE:? 3 views of the shoulder were acquired.? ? COMPARISON:? None. ? FINDINGS:? ? Bones:? No fractures or dislocations.? No suspicious bony lesions.? Visualized ribs appear intact.? ? Soft tissues:? No suspicious soft tissue calcifications.? ? IMPRESSION:? No fracture. No osseous lesion. If symptoms and/or clinical suspicion for pathology persists, further assessment with repeat radiographs (7-10 days) or advanced imaging (e.g. CT, MRI or bone scan) should be considered. Rib x-ray: Radiologist's Impression: PROCEDURE:? XR RIBS LT MIN 3V W CXR1V ? INDICATIONS:? L posterior lower rib pain after fall ? TECHNIQUE:? 4 views of the left ribs were acquired, along with a single view chest.? ? COMPARISON:? [facility], CR, XR CHEST 1V, 10/15/2022, 16:56. ? FINDINGS:? ? Surgical changes and devices:? None.? ? Bones and chest wall:? No fractures or dislocations.? No suspicious bony lesions.? Overlying soft tissues appear unremarkable.? ? Lungs and pleura:? No pleural effusions or pneumothorax.? Lungs appear clear.? ? Mediastinum:? Mediastinal contours appear normal.? Heart is mildly enlarged. ? ? IMPRESSION:? ? No displaced rib fracture.? ? No acute cardiopulmonary disease process. [facility] Narrative Medical decision making narrative: The initial injury was 14 days ago. Despite being on anticoagulation have low suspicion that there is an acute intracranial hemorrhage. He does have left- sided paraspinal discomfort. His left shoulder x-ray is unremarkable. There are no displaced rib fractures noted on the ribs however there is a possibility of a nondisplaced fracture I did discuss this with him. He has been ambulatory. No indication for further radiologic studies. He can follow-up with chiropractor as needed. Discharge Plan Departure Patient Disposition: Home Clinical Impression: Contusion of left shoulder, Contusion of rib on left side Activity Restrictions/Additional Instructions: I do recommend that you continue to take all of your medications as directed. Based on your workup here there is no contraindication to seeing a chiropractor as you see fit. Return to the emergency department for new or worsening symptoms. Prescriptions: No Action glipizide 5 mg tablet 5 mg PO BID Qty: 180 1RF Hold Instructions: patient stopping losartan 50 mg tablet 50 mg PO DAILY Qty: 90 1RF allopurinol 100 mg tablet 100 mg PO BID Qty: 60 3RF Eliquis 5 mg tablet 5 mg PO BID Qty: 180 3RF atorvastatin 80 mg tablet 80 mg PO BEDTIME Qty: 90 3RF carvedilol 25 mg tablet 25 mg PO BID Qty: 180 3RF Rx Instructions: must administer with a meal/food furosemide 40 mg tablet 40 mg PO BID Qty: 60 3RF Referrals: Jeremias Corona MD [Primary Care Provider] - Stand Alone Forms: Patient Portal/API
--- NOTE | 2022-12-25 15:06 | DI.RAD.S_ITS ---
PROCEDURE: XR SHOULDER LT MIN 2V INDICATIONS: pain after fall TECHNIQUE: 3 views of the shoulder were acquired. COMPARISON: None. FINDINGS: Bones: No fractures or dislocations. No suspicious bony lesions. Visualized ribs appear intact. Soft tissues: No suspicious soft tissue calcifications. IMPRESSION: No fracture. No osseous lesion. If symptoms and/or clinical suspicion for pathology persists, further assessment with repeat radiographs (7-10 days) or advanced imaging (e.g. CT, MRI or bone scan) should be considered. Dictated by: Yue Mcclain MD, PhD on 12/25/2022 at 15:44 Approved by: Yue Mcclain MD, PhD on 12/25/2022 at 15:45
[2022-12-25 15:32] VITALS: PULSE 68; O2SAT 95
[2022-12-25 16:00] VITALS: PULSE 64; O2SAT 96
== END 2022-12-25 16:17 | disposition home or self-care (01) ==
PROVIDERS: Emergency Provider Emergency Medicine; PCP Pediatrics
DX: S40.012A Contusion of left shoulder, initial encounter (principal); S20.212A Contusion of left front wall of thorax, initial encounter; R07.81 Pleurodynia; W11.XXXA Fall on and from ladder, initial encounter; Z79.01 Long term (current) use of anticoagulants; Z79.899 Other long term (current) drug therapy
CPT/HCPCS: 71101; 73030; 99283

== ENCOUNTER 2023-05-01 17:14 | Emergency (ER) | payer MEDICARE, OTHER, SELFPAY ==
[2023-05-01] VITALS (23 sets, daily range): BP systolic 172–240; BP diastolic 95–135; PULSE 65–92; RESP 10–32; TEMP 30.1–37.2; O2SAT 89–98; BMI 48.1
--- NOTE | 2023-05-01 17:28 | DI.RAD.S_ITS ---
PROCEDURE: XR CHEST 1V INDICATIONS: Shortness of breath TECHNIQUE: One view of the chest was acquired. COMPARISON: [facility], CR, XR CHEST 1V, 10/15/2022, 16:56. FINDINGS: Surgical changes and devices: None. Lungs and pleura: Right lower lobe infiltrate suspicious for pneumonia. No pleural effusions or pneumothorax. Mediastinum: Mediastinal contours appear normal. Heart size is moderately enlarged. Bones and chest wall: No suspicious bony lesions. Overlying soft tissues appear unremarkable. IMPRESSION: 1. Right lower lobe infiltrate suspicious for pneumonia. A differential diagnosis is asymmetric pulmonary edema. 2. Moderate cardiomegaly. Dictated by: Francie Fisher M.D. on 05/01/2023 at 18:29 Approved by: Francie Fisher M.D. on 05/01/2023 at 18:30
[2023-05-01] MEDS: HYDRALAZINE 20 MG/ML VIAL IV (17:54)
[2023-05-01 18:03] LABS: Add Manual Diff / Slide Review NO; Basophils Absolute Auto 0 /uL (0-100); Basophils Percent Auto 0.7 % (0-2); Eosinophils Absolute Auto 100 /uL (0-450); Eosinophils Percent Auto 1.8 % (2-4); Hematocrit 43.9 % (41-53); Hemoglobin 14.1 g/dL (13.5-17.5); Lymphocytes Absolute Auto 500 /uL (1100-4500); Lymphocytes Percent Auto 8.3 % (25-40); Mean Corpuscular HGB Conc 32.2 % (30-36); Mean Corpuscular Hemoglobin 27.9 PG (26-34); Mean Corpuscular Volume 86.8 fL (80-100); Monocytes Absolute Auto 800 /uL (0-900); Monocytes Percent Auto 13.9 % (3-14); Neutrophils Absolute Auto 4400 /uL (1500-7000); Neutrophils Percent Auto 75.3 % (50-75); Platelet Count 172 X10^3/uL (150-400); Red Blood Cell Count 5.06 X10^6/uL (4.5-5.9); Red Cell Distribution Width 16.4 % (11.6-14.8); White Blood Cell Count 5.8 X10^3/uL (4.5-11.0)
[2023-05-01 18:09] LABS: INR 1.7 (0.9-1.3); Prothrombin Time 19.1 SECONDS (9.4-12.5)
[2023-05-01 18:13] LABS: Influenza A - CEPHEID Flu A NEGATIVE (NEGATIVE); Influenza B - CEPHEID Flu B NEGATIVE (NEGATIVE); Respiratory Syncytial Virus POSITIVE (Negative)
--- NOTE | 2023-05-01 18:13 | ED.GENADULT ---
HPI - General Adult General Chief complaint: Shortness of Breath/Dyspnea Stated complaint: sob, not feeling well Time Seen by Provider: 05/01/23 17:43 Source: patient and family Mode of arrival: Wheelchair History of Present Illness HPI narrative: Patient is a 62-year-old male. Has a history of CHF. Is on Lasix. Is also on anticoagulation. He is here for evaluation of shortness of breath and generally not feeling very well. His who is at bedside states she recently was diagnosed with RSV. States his symptoms have actually been improving and she has been sick for the past week or so. Patient states he has not been feeling well for the past couple days. He has been taking all of his medications as directed. He has had a cough, wheezing. His had an extra albuterol inhaler and he has been using this at home with some improvement. States he is having sinus congestion and a sore throat. No abdominal pain. He does have lower extremity swelling but this is not different from what his baseline is. He did have some upper chest discomfort but he thinks that is because of the cough. Prior to my evaluation he was found to be hypoxic and was placed on BiPAP because of his history of CHF and hypertension. Related Data Previous Rx's Medication Instructions Recorded glipizide 5 mg tablet 5 mg PO BID #180 tabs 06/29/22 apixaban 5 mg tablet (Eliquis) 5 mg PO BID #180 tabs 10/24/22 atorvastatin 80 mg tablet 80 mg PO BEDTIME #90 tabs 10/24/22 carvedilol 25 mg tablet 25 mg PO BID #180 tabs 10/24/22 losartan 50 mg tablet 50 mg PO DAILY #90 tabs 03/19/23 allopurinol 100 mg tablet 100 mg PO BID #60 tabs 04/11/23 furosemide 40 mg tablet 40 mg PO BID #180 tabs 04/11/23 Allergies Allergy/AdvReac Type Severity Reaction Status Date / Time nitroglycerin Allergy Intermediate increases Verified 12/13/22 08:01 bp hydrochlorothiazide Allergy Mild acute Verified 12/13/22 08:01 renal failure aspirin [ASPIRIN] AdvReac Severe IN ACUTE Verified 12/13/22 08:01 RENAL FAILURE ibuprofen [From MOTRIN] AdvReac Severe IN ACUTE Verified 12/13/22 08:01 RENAL lisinopril [LISINOPRIL] AdvReac Unknown COUGH Verified 12/13/22 08:01 Review of Systems Review of Systems ROS Unobtainable: All systems reviewed & are unremarkable except as noted in HPI and below Patient History Medical History Myocardial infarction Atrial fibrillation Hypertension [place] stain of face Chronic heart failure with preserved ejection fraction (HFpEF) Tinea pedis Anxiety Gouty arthritis Social History household members: spouse Smoking Status: Never smoker alcohol intake: current Smoking Status: Never smoker alcohol intake frequency: holidays/special occasions only Substance Use Type: does not use Exam Initial Vital Signs Initial Vital Signs: Vital Signs Temperature 98.5 F 05/01/23 17:18 Pulse Rate 65 05/01/23 17:18 Respiratory Rate 32 H 05/01/23 17:18 Blood Pressure 240/135 H 05/01/23 17:18 Pulse Oximetry 89 L 05/01/23 17:18 Oxygen Delivery Method Room Air 05/01/23 17:18 Const General: cooperative and No ill appearing HENID Head: normal to inspection and normocephalic Resp Effort & Inspection: labored and tachypneic Auscultation: rhonchi and wheezes Cardio Rate: regular rate Rhythm: regular rhythm GI Inspection: distended Palpation: soft, No firm and No tender Skin General: no rashes or lesions noted Neuro General: patient alert, patient oriented x3 and moves all extremities Extrem General: edema Course Orders Ordered: ED Orders 05/01/23 17:25 Covid-19 + FLU A/B + RSV - PCR Stat 05/01/23 17:28 XR chest 1V Stat Measure peak expiratory flow ONCE RT Consult Eval and Treat NOW 05/01/23 17:40 EKG-12 Lead Stat 05/01/23 17:57 Complete Blood Count AUTO DIFF Stat Comprehensive Metabolic Panel Stat Lactate (Lactic Acid) Stat NT-proBNP (BNP-Adult 18+) Stat Prothrombin Time INR Stat Troponin I Stat Discontinued Medications Acetaminophen (Acetaminophen 325 Mg Tablet) 650 mg PO NOW ONE Stop: 05/01/23 20:00 Last Admin: 05/01/23 20:08 Dose: Not Given Documented By: EBONY Albuterol/Ipratropium (Albuterol/Ipratropium 3 Ml Ampul) 3 ml INH Q20M EUSEBIO Stop: 05/01/23 18:56 Last Admin: 05/01/23 18:52 Dose: 3 ml Documented By: Admin: 05/01/23 18:34 Dose: 3 ml Documented By: Admin: 05/01/23 18:19 Dose: 3 ml Documented By: DAINA Hydralazine HCl (Hydralazine 20 Mg/Ml Vial) 20 mg IV NOW ONE Stop: 05/01/23 17:44 Last Admin: 05/01/23 17:54 Dose: 20 mg Documented By: DRU Furosemide 80 mg/ Sodium (Chloride) 58 mls @ 116 mls/hr IV NOW ONE Stop: 05/01/23 18:14 Last Infusion: 05/01/23 19:18 Dose: Infused Documented By: Admin: 05/01/23 18:36 Dose: 116 mls/hr Documented By: DRU Vital Signs Vital signs: Vital Signs - 8 hr 05/01/23 17:18 05/01/23 17:30 05/01/23 17:33 Temperature 98.5 F Pulse Rate 65 81 Respiratory Rate 32 H 30 H Blood Pressure 240/135 H Pulse Oximetry 89 L 94 94 Oxygen Delivery Method Room Air Room Air Fraction of Inspired Oxygen 05/01/23 17:34 05/01/23 17:34 05/01/23 17:54 Temperature Pulse Rate 78 79 Respiratory Rate Blood Pressure 227/133 H 214/127 H Pulse Oximetry 93 Oxygen Delivery Method Fraction of Inspired Oxygen 05/01/23 17:54 05/01/23 17:54 05/01/23 18:00 Temperature Pulse Rate 78 Respiratory Rate 30 H Blood Pressure 214/127 H 209/126 H Pulse Oximetry 97 Oxygen Delivery Method Fraction of Inspired Oxygen 05/01/23 18:00 05/01/23 18:00 05/01/23 18:02 Temperature Pulse Rate 75 Respiratory Rate 18 Blood Pressure 217/105 H Pulse Oximetry 98 Oxygen Delivery Method Fraction of Inspired Oxygen 30 05/01/23 18:02 05/01/23 18:08 05/01/23 18:08 Temperature Pulse Rate 75 74 Respiratory Rate 27 H Blood Pressure 195/122 H Pulse Oximetry 98 97 Oxygen Delivery Method BiPAP Fraction of Inspired Oxygen 05/01/23 18:10 05/01/23 18:10 05/01/23 18:20 Temperature Pulse Rate 76 Respiratory Rate Blood Pressure 211/106 H 196/99 H Pulse Oximetry 97 Oxygen Delivery Method BiPAP Fraction of Inspired Oxygen 05/01/23 18:20 05/01/23 18:24 05/01/23 18:30 Temperature Pulse Rate 81 Respiratory Rate Blood Pressure 198/106 H Pulse Oximetry 97 97 Oxygen Delivery Method BiPAP Fraction of Inspired Oxygen 30 05/01/23 18:30 05/01/23 18:35 05/01/23 18:40 Temperature Pulse Rate 81 Respiratory Rate Blood Pressure 191/113 H Pulse Oximetry 97 97 Oxygen Delivery Method BiPAP Fraction of Inspired Oxygen 05/01/23 18:40 05/01/23 18:50 05/01/23 18:50 Temperature Pulse Rate 82 85 Respiratory Rate 24 14 Blood Pressure 186/95 H Pulse Oximetry 96 97 Oxygen Delivery Method Fraction of Inspired Oxygen 05/01/23 18:59 05/01/23 19:00 05/01/23 19:00 Temperature Pulse Rate 83 Respiratory Rate 18 Blood Pressure 197/107 H Pulse Oximetry 98 97 Oxygen Delivery Method BiPAP Fraction of Inspired Oxygen 05/01/23 19:10 05/01/23 19:20 05/01/23 19:20 Temperature Pulse Rate 92 H Respiratory Rate 26 H Blood Pressure 191/110 H 216/125 H Pulse Oximetry 93 Oxygen Delivery Method Fraction of Inspired Oxygen 05/01/23 19:30 05/01/23 19:30 05/01/23 19:40 Temperature Pulse Rate 91 H Respiratory Rate 29 H Blood Pressure 209/120 H 222/118 H Pulse Oximetry 95 Oxygen Delivery Method Fraction of Inspired Oxygen 05/01/23 19:40 05/01/23 19:50 05/01/23 19:50 Temperature Pulse Rate 87 86 Respiratory Rate 25 H 21 Blood Pressure 229/128 H Pulse Oximetry 95 94 Oxygen Delivery Method Fraction of Inspired Oxygen 05/01/23 20:00 05/01/23 20:10 Temperature 99.0 F Pulse Rate 90 Respiratory Rate 30 H Blood Pressure 172/112 H Pulse Oximetry 96 Oxygen Delivery Method Room Air Room Air Fraction of Inspired Oxygen Medical Decision Making Medical Records Medical records reviewed: Yes I reviewed the patient's medical records. Lab Data Lab results reviewed: Yes I reviewed the patient's lab results. 05/01/23 17:57 05/01/23 17:57 Labs: Lab Results 05/01/23 05/01/23 Range/Units 17:25 17:57 WBC 5.8 (4.5-11.0) X10^3/uL RBC 5.06 (4.5-5.9) X10^6/uL Hgb 14.1 (13.5-17.5) g/dL Hct 43.9 (41-53) % MCV 86.8 (80-100) fL MCH 27.9 (26-34) PG MCHC 32.2 (30-36) % RDW 16.4 H (11.6-14.8) % Plt Count 172 (150-400) X10^3/uL Neut % (Auto) 75.3 H (50-75) % Lymph % (Auto) 8.3 L (25-40) % Johnson % (Auto) 13.9 (3-14) % Eos % (Auto) 1.8 L (2-4) % Baso % (Auto) 0.7 (0-2) % Neut # (Auto) 4400 (0940-8304) /uL Lymph # (Auto) 500 L (9879-0104) /uL Johnson # (Auto) 800 (0-900) /uL Eos # (Auto) 100 (0-450) /uL Baso # (Auto) 0 (0-100) /uL PT 19.1 H (9.4-12.5) SECONDS INR 1.7 H (0.9-1.3) Sodium 141 (137-145) mmol/L Potassium 4.4 (3.4-5.1) mmol/L Chloride 106 (98-107) mmol/L Carbon Dioxide 30 (22-32) mmol/L BUN 40 H (9-20) mg/dL Creatinine 2.66 H (0.66-1.25) mg/dL Estimated GFR 26 L (>60) mL/min BUN/Creatinine Ratio 15.0 (6-22) Glucose 120 H (80-110) mg/dL Lactate 1.2 (0.7-2.1) mmol/L Calcium 10.4 H (8.4-10.2) mg/dL Total Bilirubin 0.8 (0.2-1.3) mg/dL AST 33 (17-59) IU/L ALT 24 (<50) IU/L Alkaline Phosphatase 135 H (38-126) U/L Troponin I 0.020 (0.01-0.034) ng/mL NT-Pro-B Natriuret Pep 2910 H (<125) pg/mL Total Protein 7.6 (6.3-8.2) g/dL Albumin 4.0 (3.5-5.0) g/dL Globulin 3.6 (1.7-4.1) g/dL Albumin/Globulin Ratio 1.1 (1.0-2.8) SARS-CoV-2 (PCR) Negative (Negative) Influenza A (RT-PCR) Flu a negative (NEGATIVE) Influenza B (RT-PCR) Flu b negative (NEGATIVE) RSV (PCR) Positive A (Negative) Imaging Data Chest x-ray: Radiologist's Impression: PROCEDURE: XR CHEST 1V INDICATIONS: Shortness of breath TECHNIQUE: One view of the chest was acquired. COMPARISON: [facility], , XR CHEST 1V, 10/15/2022, 16:56. FINDINGS: Surgical changes and devices: None. Lungs and pleura: Right lower lobe infiltrate suspicious for pneumonia. No pleural effusions or pneumothorax. Mediastinum: Mediastinal contours appear normal. Heart size is moderately enlarged. Bones and chest wall: No suspicious bony lesions. Overlying soft tissues appear unremarkable. IMPRESSION: 1. Right lower lobe infiltrate suspicious for pneumonia. A differential diagnosis is asymmetric pulmonary edema. 2. Moderate cardiomegaly. [facility] Narrative Medical decision making narrative: Patient was significantly wheezing upon arrival. He was given 3 DuoNebs and he states that all of his symptoms essentially improved. He was feeling much better. Could breathe easier. States he was feeling back to baseline. Chest discomfort was better. Chest x-ray concerning for pneumonia however given his presentation I suspect that this is viral in nature and not bacterial. We will hold on any antibiotics. His BNP is only slightly above baseline. He reports no change in swelling to his lower extremities and chest x-ray does not show pulmonary edema. I suspect that his respiratory issues are not necessarily an acute CHF exacerbation but bronchoconstriction because of the RSV. He was given Lasix. He did diurese quite a bit here in the ER but he thinks it was the breathing treatments at helped his symptoms the most. He was hypertensive. Has a negative troponin. Low suspicion this is an acute ACS. I do suspect it is RSV. He has an inhaler at home. Will discharge home with a spacer. Patient states that he feels back to normal and would like to go home. He will continue to take his blood pressure at home. Talk with his primary doctor about potentially changing in his medications. He was given return precautions. He expressed understanding and agreement. Discharge Plan Departure Patient Disposition: Home Clinical Impression: Respiratory syncytial virus (RSV) infection, Hypertension, CHF (congestive heart failure) Instructions: DI for Respiratory Syncytial Virus -- Adults Activity Restrictions/Additional Instructions: It is important that you continue to take all of your medications as directed. According to our medical records your on 40 mg of furosemide/Lasix 2 times a day. Use the albuterol inhaler in the spacer as directed. You can do 2-4 puffs every 4 hours as needed. Return to the emergency department for new or worsening symptoms. Prescriptions: No Action glipizide 5 mg tablet 5 mg PO BID Qty: 180 1RF Hold Instructions: patient stopping Eliquis 5 mg tablet 5 mg PO BID Qty: 180 3RF atorvastatin 80 mg tablet 80 mg PO BEDTIME Qty: 90 3RF carvedilol 25 mg tablet 25 mg PO BID Qty: 180 3RF Rx Instructions: must administer with a meal/food losartan 50 mg tablet 50 mg PO DAILY Qty: 90 1RF furosemide 40 mg tablet 40 mg PO BID Qty: 180 1RF allopurinol 100 mg tablet 100 mg PO BID Qty: 60 3RF Referrals: Jeremias Corona MD [Primary Care Provider] - Stand Alone Forms: Patient Portal/API
[2023-05-01 18:16] LABS: Alanine Aminotransferase 24 IU/L (<50); Albumin Globulin Ratio 1.1 (1.0-2.8); Alkaline Phosphatase 135 U/L (38-126); Aspartate Aminotransferase 33 IU/L (17-59); Bilirubin Total 0.8 mg/dL (0.2-1.3); Blood Urea Nitrogen 40 mg/dL (9-20); Calcium 10.4 mg/dL (8.4-10.2); Carbon Dioxide 30 mmol/L (22-32); Chloride 106 mmol/L (98-107); Estimated Glomerular Filt Rate 26 mL/min (>60); Globulin 3.6 g/dL (1.7-4.1); Glucose 120 mg/dL (80-110); HEMOLYSIS < 15 (0-50); Potassium 4.4 mmol/L (3.4-5.1); Sodium 141 mmol/L (137-145); Total Protein 7.6 g/dL (6.3-8.2)
[2023-05-01 18:17] LABS: Lactate (Lactic Acid) 1.2 mmol/L (0.7-2.1)
[2023-05-01 18:19] LABS: COVID-19 CEPHEID 4-PLEX PCR Negative (Negative)
[2023-05-01] MEDS: ALBUTEROL/IPRATROPIUM 3 ML AMPUL INH ×3 (18:19→18:52)
[2023-05-01 18:28] LABS: NT-proBNP (BNP-Adult 18+) 2910 pg/mL (<125)
[2023-05-01] MEDS: FUROSEMIDE 80 MG in SODIUM CHLORIDE 0.9% 50 ML 116 MG IV (18:36)
== END 2023-05-01 20:10 | disposition home or self-care (01) ==
PROVIDERS: Emergency Medicine; Emergency Provider Emergency Medicine; PCP Pediatrics
DX: B33.8 Other specified viral diseases (principal); I10 Essential (primary) hypertension; I50.9 Heart failure, unspecified; R05.9 Cough, unspecified; Z79.01 Long term (current) use of anticoagulants; Z20.822 Contact with and (suspected) exposure to COVID-19
CPT/HCPCS: 0241U; 36415; 71045; 80053; 83605; 83880; 84484; 85025; 85610; 93005; 93010; 94640; 94660; 96365; 96375; 99284; J0360; J1940

== ENCOUNTER → 2023-06-06 14:21 | Outpatient (CLI) | payer MEDICARE, OTHER, SELFPAY ==
[2023-06-06 15:52] LABS: Hemoglobin A1C% w Est Avg Glu 7.4 % (4.0-6.0)
[2023-06-06 17:32] LABS: Alanine Aminotransferase 19 IU/L (<50); Albumin 3.7 g/dL (3.5-5.0); Albumin Globulin Ratio 1.1 (1.0-2.8); Alkaline Phosphatase 136 U/L (38-126); Aspartate Aminotransferase 24 IU/L (17-59); BUN Creatinine Ratio 14.1 (6-22); Bilirubin Total 0.9 mg/dL (0.2-1.3); Blood Urea Nitrogen 34 mg/dL (9-20); Calcium 9.5 mg/dL (8.4-10.2); Carbon Dioxide 27 mmol/L (22-32); Chloride 114 mmol/L (98-107); Cholesterol 174 mg/dL (140-199); Estimated Glomerular Filt Rate 29 mL/min (>60); Globulin 3.3 g/dL (1.7-4.1); Glucose 144 mg/dL (80-110); HDL Cholesterol 40 mg/dL (40-60); HEMOLYSIS < 15 (0-50); LDL Cholesterol Calculated 92 mg/dL (<100); Lipase 437 U/L (23-300); Potassium 4.6 mmol/L (3.4-5.1); Sodium 144 mmol/L (137-145); Triglycerides 211 mg/dL (35-150); Uric Acid 6.5 mg/dL (3.5-8.5)
== END ==
PROVIDERS: PCP Family Medicine; Referring Provider Family Medicine; Visit Provider Family Medicine
DX: E11.9 Type 2 diabetes mellitus without complications (principal); N18.32 Chronic kidney disease, stage 3b; I48.91 Unspecified atrial fibrillation; I10 Essential (primary) hypertension; M10.9 Gout, unspecified
CPT/HCPCS: 36415; 80053; 80061; 83036; 83690; 84550

== ENCOUNTER → 2023-06-17 13:09 | Outpatient (CLI) | payer MEDICARE, OTHER, SELFPAY | PROVIDERS: PCP Family Medicine; Referring Provider Family Medicine; Visit Provider Surgery | DX: L97.812 Non-pressure chronic ulcer of other part of right lower leg with fat layer exposed (principal); L97.822 Non-pressure chronic ulcer of other part of left lower leg with fat layer exposed; I87.2 Venous insufficiency (chronic) (peripheral); R60.0 Localized edema; E11.628 Type 2 diabetes mellitus with other skin complications; I48.91 Unspecified atrial fibrillation; I50.9 Heart failure, unspecified; M79.622 Pain in left upper arm | CPT/HCPCS: 29581; 99213; 99214 ==

== ENCOUNTER → 2023-06-17 15:42 | Outpatient (CLI) | payer MEDICARE, OTHER, SELFPAY ==
--- NOTE | 2023-06-17 15:44 | DI.US.S_ITS ---
PROCEDURE: US ABDOMEN LIMITED INDICATIONS: PANCREATITIS. ELEVATED LIPASE. TECHNIQUE: Limited renal-time scanning was performed of the right upper quadrant COMPARISON: CT of the abdomen dated 12/15/2020. FINDINGS: Liver: Liver measures 16.8 cm in size with heterogeneous echogenicity which can be seen with fatty liver. Right kidney images not included for comparison. Left lobe of the liver may be atrophic at 3.2 cm. The main portal vein appears enlarged at 15.5 mm, questionable. Hepatopetal flow seen. Prominent right lobe of the liver is seen with mild nodular borders which can be seen with cirrhosis. Prominent hepatic veins seen on the right and mid portion of the liver. Left hepatic vein not seen Gallbladder: Gallbladder shows wall thickening at 3.6 mm. Questionable punctate echogenic single wall calcification versus adenomyomatosis. The biliary tree is not visualized. Biliary ducts: Not visualized Pancreas: Nonvisualized Miscellaneous: Trace amount of fluid is seen in the right upper quadrant and right lower quadrants. Is to too small amount for paracentesis. ep technologist noted prominent bladder and took pictures of it. Prevoid bladder volume of 459 cc. Postvoid bladder volume of 20 cc. Bilateral ureteral jets seen. IMPRESSION: 1. This ultrasound is unable to evaluate pancreas due to morbid obesity and bowel gas; the pancreas is usually not well evaluated by ultrasound. If indicated CT of the abdomen with contrast, pancreatic protocol may provide additional diagnostic benefit 2. Suggestion of fatty liver, cirrhosis, this is questionable. 3. Gallbladder shows wall thickening at 3.6 mm; gallbladder wall thickening can be seen with ascites, portal hypertension or cholecystitis. Questionable punctate echogenic single wall calcification versus adenomyomatosis. 4. Trace ascites 5. Distended bladder with normal postvoid residual Dictated by: Yung Reyes M.D. on 06/18/2023 at 15:16 Approved by: Yung Reyes M.D. on 06/18/2023 at 15:44
== END ==
PROVIDERS: PCP Family Medicine; Referring Provider Family Medicine; Visit Provider Family Medicine
DX: K86.1 Other chronic pancreatitis (principal); E66.01 Morbid (severe) obesity due to excess calories; N32.89 Other specified disorders of bladder; L97.812 Non-pressure chronic ulcer of other part of right lower leg with fat layer exposed; L97.822 Non-pressure chronic ulcer of other part of left lower leg with fat layer exposed; I87.2 Venous insufficiency (chronic) (peripheral); R60.0 Localized edema; E11.628 Type 2 diabetes mellitus with other skin complications; I48.91 Unspecified atrial fibrillation; I50.9 Heart failure, unspecified; M79.622 Pain in left upper arm
CPT/HCPCS: 29581; 76705; 99213

== ENCOUNTER → 2023-06-19 11:11 | Outpatient (CLI) | payer MEDICARE, OTHER, SELFPAY | LOC: WC 11:12 | PROVIDERS: PCP Family Medicine; Referring Provider Family Medicine; Visit Provider Surgery | DX: L97.812 Non-pressure chronic ulcer of other part of right lower leg with fat layer exposed (principal); L97.822 Non-pressure chronic ulcer of other part of left lower leg with fat layer exposed; I87.2 Venous insufficiency (chronic) (peripheral); R60.0 Localized edema | CPT/HCPCS: 29581 ==

== ENCOUNTER → 2023-06-24 06:42 | Outpatient (CLI) | payer MEDICARE, OTHER, SELFPAY ==
--- NOTE | 2023-06-24 06:44 | DI.US.S_ITS ---
PROCEDURE: US ARTERIAL DUPLEX LE BI INDICATIONS: ULCERS TECHNIQUE: Color and pulse Doppler interrogation was performed of both lower extremity arterial systems, with image documentation. COMPARISON: None. FINDINGS: Right lower extremity: Common femoral artery: 97 cm/sec, with triphasic flow. Deep femoral artery: 62 cm/sec, with biphasic flow. Proximal superficial femoral artery: 116 cm/sec, with triphasic flow. Mid superficial femoral artery: 83 cm/sec, with biphasic flow. Distal superficial femoral artery: 80 cm/sec, with triphasic flow. Popliteal artery: 90 cm/sec, with triphasic flow. Posterior tibial artery: 53 cm/sec, with monophasic flow. Anterior tibial artery/dorsalis pedis: 35 cm/sec, with biphasic (above baseline) flow. Sanchez-scale imaging description: Scattered atherosclerotic plaque Left lower extremity: Common femoral artery: 79 cm/sec, with triphasic flow. Deep femoral artery: 42 cm/sec, with biphasic flow. Proximal superficial femoral artery: 78 cm/sec, with triphasic flow. Mid superficial femoral artery: 66 cm/sec, with triphasic flow. Distal superficial femoral artery: 64 cm/sec, with biphasic flow. Popliteal artery: 51 cm/sec, with biphasic flow. Posterior tibial artery: 117 cm/sec, with biphasic (above baseline) flow. Anterior tibial artery/dorsalis pedis: 85 cm/sec, with biphasic flow. Sanchez-scale imaging description: Scattered atherosclerotic plaque IMPRESSION: 1. Right lower extremity: -above the knee vasculature demonstrates multiphasic waveforms with no velocity shift to suggest hemodynamically significant stenosis -monophasic waveforms in the posterior tibial artery suggestive of scattered atherosclerotic disease 2. Left lower extremity: -multiphasic waveforms with no velocity shift to suggest hemodynamically significant stenosis Dictated by: Radha Boles M.D. on 06/24/2023 at 8:11 Approved by: Radha Boles M.D. on 06/24/2023 at 8:14
== END ==
PROVIDERS: PCP Family Medicine; Referring Provider Surgery; Visit Provider Surgery
DX: L97.812 Non-pressure chronic ulcer of other part of right lower leg with fat layer exposed (principal); L97.822 Non-pressure chronic ulcer of other part of left lower leg with fat layer exposed; I87.2 Venous insufficiency (chronic) (peripheral); R60.0 Localized edema; E11.622 Type 2 diabetes mellitus with other skin ulcer; I48.91 Unspecified atrial fibrillation
CPT/HCPCS: 11042; 93925

== ENCOUNTER → 2023-06-24 11:24 | Outpatient (CLI) | payer MEDICARE, OTHER, SELFPAY | PROVIDERS: PCP Family Medicine; Referring Provider Family Medicine; Visit Provider Surgery | DX: L97.812 Non-pressure chronic ulcer of other part of right lower leg with fat layer exposed (principal); L97.822 Non-pressure chronic ulcer of other part of left lower leg with fat layer exposed; I87.2 Venous insufficiency (chronic) (peripheral); R60.0 Localized edema; E11.622 Type 2 diabetes mellitus with other skin ulcer; I48.91 Unspecified atrial fibrillation | CPT/HCPCS: 11042 ==

== ENCOUNTER → 2023-06-27 13:19 | Outpatient (CLI) | payer MEDICARE, OTHER, SELFPAY | LOC: WC 13:22 | PROVIDERS: PCP Family Medicine; Referring Provider Family Medicine; Visit Provider Surgery | DX: L97.812 Non-pressure chronic ulcer of other part of right lower leg with fat layer exposed (principal); L97.822 Non-pressure chronic ulcer of other part of left lower leg with fat layer exposed; I87.2 Venous insufficiency (chronic) (peripheral); R60.0 Localized edema | CPT/HCPCS: 29581 ==

== ENCOUNTER → 2023-07-01 09:18 | Outpatient (CLI) | payer MEDICARE, OTHER, SELFPAY | PROVIDERS: PCP Family Medicine; Referring Provider Family Medicine; Visit Provider Surgery | DX: L97.812 Non-pressure chronic ulcer of other part of right lower leg with fat layer exposed (principal); I87.2 Venous insufficiency (chronic) (peripheral); R60.0 Localized edema; E11.622 Type 2 diabetes mellitus with other skin ulcer; I48.91 Unspecified atrial fibrillation | CPT/HCPCS: 11042 ==

== ENCOUNTER 2023-07-01 10:22 | Emergency (ER) | payer MEDICARE, OTHER, SELFPAY ==
[2023-07-01] VITALS (7 sets, daily range): BP systolic 150–163; BP diastolic 82–88; PULSE 59–74; RESP 16–24; TEMP 36.5; O2SAT 95–98; BMI 48.2
--- NOTE | 2023-07-01 10:41 | DI.RAD.S_ITS ---
PROCEDURE: XR CHEST 1V INDICATIONS: chest pain TECHNIQUE: One view of the chest was acquired. COMPARISON: [facility], CR, XR CHEST 1V, 05/01/2023, 17:45. FINDINGS: Surgical changes and devices: None. Lungs and pleura: Mild appearance of increased patchy pulmonary opacities less prominent when compared to prior exam. Mediastinum: Mediastinal contours appear normal. Heart size is enlarged. Bones and chest wall: No suspicious bony lesions. Overlying soft tissues appear unremarkable. IMPRESSION: Persistent although less prominent appearance bilateral pulmonary opacities. This could represent resolving pneumonia and/or edema. Dictated by: Soraida Mayorga M.D. on 07/01/2023 at 11:43 Approved by: Soraida Mayorga M.D. on 07/01/2023 at 11:43
--- NOTE | 2023-07-01 10:55 | ED.CHESTPAIN ---
HPI - Chest Pain General Chief Complaint: Chest Pain Stated Complaint: forgot to take meds feels like chf had it before Time Seen by Provider: 07/01/23 10:53 Source: patient Mode of arrival: Ambulatory Limitations: no limitations History of Present Illness HPI narrative: 62-year-old male history of chronic heart failure, coronary artery disease with cardiac stents, hypertension, dyslipidemia, diabetes, chronic kidney disease on Eliquis daily who presents with complaint of chest pressure and shortness of breath for the past or 3 days. Patient states been fairly constant sort of waxes and wanes in intensity. Nothing seems to make it worse. He states nothing really seems to make it better. He notes he has swelling in his lower extremities it also waxes and wanes day by day. Patient states no fevers or chills, no cold cough or congestion. Denies any orthopnea. No nausea or vomiting no diaphoresis no issues with bowel movements or urination. Patient states he accidentally missed his medications today because he was trying to get to the [employer] some keys. He has otherwise been taking his medications regularly. He does note he had his Lasix increased from 20 mg twice daily to 40 mg twice daily at the beginning of May. He states that has been helpful. He has chronic wounds on his lower extremities which he follows with wound care. Related Data Previous Rx's Medication Instructions Recorded apixaban 5 mg tablet (Eliquis) 5 mg PO BID #180 tabs 10/24/22 atorvastatin 80 mg tablet 80 mg PO BEDTIME #90 tabs 10/24/22 carvedilol 25 mg tablet 25 mg PO BID #180 tabs 10/24/22 allopurinol 100 mg tablet 100 mg PO BID #60 tabs 04/11/23 empagliflozin 25 mg tablet 25 mg PO DAILY #90 tabs 06/06/23 (Jardiance) semaglutide 0.25 mg or 0.5 mg (2 0.5 mg (0.736 mL) SUBCUT QWEEK #3 06/06/23 mg/3 mL) subcutaneous pen injector mL (Ozempic) furosemide 40 mg tablet 40 mg PO BID #180 tabs 06/10/23 gabapentin 300 mg capsule 300 mg PO BID #180 caps 06/10/23 losartan 50 mg tablet 50 mg PO DAILY #90 tabs 06/10/23 Allergies Allergy/AdvReac Type Severity Reaction Status Date / Time nitroglycerin Allergy Intermediate increases Verified 06/06/23 11:29 bp hydrochlorothiazide Allergy Mild acute Verified 06/06/23 11:29 renal failure aspirin [ASPIRIN] AdvReac Severe IN ACUTE Verified 06/06/23 11:29 RENAL FAILURE ibuprofen [From MOTRIN] AdvReac Severe IN ACUTE Verified 06/06/23 11:29 RENAL lisinopril [LISINOPRIL] AdvReac Unknown COUGH Verified 06/06/23 11:29 Review of Systems Review of Systems ROS Unobtainable: All systems reviewed & are unremarkable except as noted in HPI and below Patient History Medical History Steatosis of liver Cirrhosis Elevated lipase Leg wound, right Myocardial infarction Atrial fibrillation Hypertension Port-wine stain of face Chronic heart failure with preserved ejection fraction (HFpEF) Tinea pedis Anxiety Gouty arthritis Social History household members: spouse Smoking Status: Never smoker alcohol intake: current Smoking Status: Never smoker alcohol intake frequency: holidays/special occasions only Substance Use Type: does not use Exam Narrative Exam Narrative: GENERAL: Alert and oriented x three, obese male in mild distress. HEENT: Head normocephalic, atraumatic, EOMI, pupils reactive, face symmetric, moist mucous membranes, port-wine stain of the right face ear and cheek. NECK: Supple, full range of motion CARDIOVASCULAR: Regular rate and rhythm without murmurs, rubs or gallops. Bilateral lower extremity edema. RESPIRATORY: Breath sounds equal bilaterally, no wheezes rales or rhonchi. No tachypnea accessory muscle use ABDOMEN: Soft, nontender. Normoactive bowel sounds all 4 quadrants. No guarding or rebound, rigidity, no mass : No CVA tenderness EXTREMITIES: Normal range of motion, no clubbing or edema. Neurovascularly intact NEUROLOGICAL: Cranial nerves II through XII grossly intact. Moving all extremities SKIN: Warm, dry, no petechiae, no rashes or lesions. Initial Vital Signs Initial Vital Signs: Vital Signs Temperature 97.7 F 07/01/23 10:30 Pulse Rate 70 07/01/23 10:30 Respiratory Rate 20 07/01/23 10:30 Blood Pressure 163/82 H 07/01/23 10:30 Pulse Oximetry 97 07/01/23 10:30 Oxygen Delivery Method Room Air 07/01/23 10:30 Course Orders Ordered: ED Orders 07/01/23 10:41 XR chest 1V Stat EKG-12 Lead Stat 07/01/23 10:51 BNP [NT-proBNP (BNP-Adult 18+)] Stat Complete Blood Count AUTO DIFF Stat Comprehensive Metabolic Panel Stat Lipase Stat Troponin & CK Cardiac Panel Stat 07/01/23 12:55 Trop I [Troponin I] Stat Discontinued Medications Allopurinol (Allopurinol 100 Mg Tablet) 100 mg PO NOW ONE Stop: 07/01/23 11:35 Last Admin: 07/01/23 11:49 Dose: 100 mg Documented By: TANISHA Apixaban (Apixaban 5 Mg Tablet) 5 mg PO NOW ONE Stop: 07/01/23 11:35 Last Admin: 07/01/23 11:49 Dose: 5 mg Documented By: TANISHA Aspirin (Aspirin 81 Mg Chew Tab) 324 mg PO NOW ONE Stop: 07/01/23 10:42 Last Admin: 07/01/23 11:51 Dose: Not Given Documented By: TANISHA Carvedilol (Carvedilol 12.5 Mg Tablet) 25 mg PO NOW ONE Stop: 07/01/23 11:35 Last Admin: 07/01/23 11:49 Dose: 25 mg Documented By: TANISHA Furosemide (Furosemide 40 Mg/4 Ml Vial) 40 mg IV NOW ONE Stop: 07/01/23 11:35 Last Admin: 07/01/23 11:48 Dose: 40 mg Documented By: TANISHA Gabapentin (Gabapentin 300 Mg Capsule) 300 mg PO NOW ONE Stop: 07/01/23 11:35 Last Admin: 07/01/23 11:48 Dose: 300 mg Documented By: TAINSHA Sodium Chloride (Normal Saline 0.9%) 1,000 mls @ 150 mls/hr IV CONT EUSEBIO Last Admin: 07/01/23 11:51 Dose: Not Given Documented By: TANISHA Vital Signs Vital signs: Vital Signs - 8 hr 07/01/23 11:30 07/01/23 11:49 07/01/23 12:00 Pulse Rate 60 74 69 Respiratory Rate 24 16 Blood Pressure Pulse Oximetry 96 95 Oxygen Delivery Method 07/01/23 12:30 07/01/23 14:51 Pulse Rate 59 L 65 Respiratory Rate 20 Blood Pressure 150/88 H Pulse Oximetry 95 98 Oxygen Delivery Method Room Air Room Air MDM - Chest Pain Lab Data 07/01/23 10:51 07/01/23 10:51 Labs: Lab Results 07/01/23 07/01/23 Range/Units 10:51 12:55 WBC 6.9 (4.5-11.0) X10^3/uL RBC 4.81 (4.5-5.9) X10^6/uL Hgb 13.7 (13.5-17.5) g/dL Hct 42.4 (41-53) % MCV 88.2 (80-100) fL MCH 28.5 (26-34) PG MCHC 32.3 (30-36) % RDW 16.8 H (11.6-14.8) % Plt Count 152 (150-400) X10^3/uL Neut % (Auto) 77.6 H (50-75) % Lymph % (Auto) 11.9 L (25-40) % Hughes % (Auto) 7.1 (3-14) % Eos % (Auto) 2.5 (2-4) % Baso % (Auto) 0.9 (0-2) % Neut # (Auto) 5300 (4320-8681) /uL Lymph # (Auto) 800 L (5746-0871) /uL Hughes # (Auto) 500 (0-900) /uL Eos # (Auto) 200 (0-450) /uL Baso # (Auto) 100 (0-100) /uL Sodium 143 (137-145) mmol/L Potassium 4.1 (3.4-5.1) mmol/L Chloride 112 H (98-107) mmol/L Carbon Dioxide 26 (22-32) mmol/L BUN 44 H (9-20) mg/dL Creatinine 2.42 H (0.66-1.25) mg/dL Estimated GFR 29 L (>60) mL/min BUN/Creatinine Ratio 18.2 (6-22) Glucose 119 H (80-110) mg/dL Calcium 9.5 (8.4-10.2) mg/dL Total Bilirubin 1.0 (0.2-1.3) mg/dL AST 31 (17-59) IU/L ALT 24 (<50) IU/L Alkaline Phosphatase 127 H (38-126) U/L Total Creatine Kinase 71 (55-170) U/L Troponin I 0.015 0.013 (0.01-0.034) ng/mL NT-Pro-B Natriuret Pep 2960 H (<125) pg/mL Total Protein 7.0 (6.3-8.2) g/dL Albumin 3.7 (3.5-5.0) g/dL Globulin 3.3 (1.7-4.1) g/dL Albumin/Globulin Ratio 1.1 (1.0-2.8) Lipase 612 H (23-300) U/L Urine Dip Bedside Urine Glucose Negative Bedside Urine Bilirubin - Negative Bedside Urine Ketone - Negative Urine Specific [place] 1.015 Bedside Urine Occult Blood - Negative Bedside Urine pH 6.0 Bedside Urine Protein ++ 100 Bedside Urine Urobilinogen - Negative Bedside Urine Nitrite - Negative Bedside Urine Leukocytes - Negative Esterase Imaging Data Chest x-ray: Radiologist's Impression: [address] [address] XRay Report Signed Patient: Imtiaz Spears MR#: [id number] : 1960 Acct:[id number] Age/Sex: 62 / M Date of Service: 07/01/23 Loc: ED Accession Number: [id number] Procedure: XR chest 1V Ordering Provider: Zara Bill D.O. PROCEDURE: XR CHEST 1V INDICATIONS: chest pain TECHNIQUE: One view of the chest was acquired. COMPARISON: [facility], , XR CHEST 1V, 05/01/2023, 17:45. FINDINGS: Surgical changes and devices: None. Lungs and pleura: Mild appearance of increased patchy pulmonary opacities less prominent when compared to prior exam. Mediastinum: Mediastinal contours appear normal. Heart size is enlarged. Bones and chest wall: No suspicious bony lesions. Overlying soft tissues appear unremarkable. IMPRESSION: Persistent although less prominent appearance bilateral pulmonary opacities. This could represent resolving pneumonia and/or edema. Dictated by: Soraida Mayorga M.D. on 07/01/2023 at 11:43 Approved by: Soraida Mayorga M.D. on 07/01/2023 at 11:43 ECG Data Attestation: I personally reviewed and interpreted this ECG as follows: Prior ECG tracings: available for review Interpretation: Atrial fibrillation rate of 71 QRS of 92 QTC of 425. No acute ST changes. Patient has prior EKGs which appears similar. MDM Narrative Medical decision making narrative: 62-year-old male with known history of atrial fibrillation, coronary artery disease, CHF, chronic kidney disease who presents with complaint of 2 or 3 days of chest pain and shortness of breath which has been persistent without any resolution. Patient states not worsening he had missed a dose of his medications this morning presents to the ED. Chest x-ray shows persistent bilateral pulmonary opacities although less prominent could be representing pneumonia versus edema. EKG shows AFib rate controlled with no acute ST changes. Labs show white count of 6.9 hemoglobin of 13 platelets of 152, creatinine days 2.42 appears consistent with prior baseline from May and prior, sodium is 143 potassium 4.1 chloride 112, CO2 is 26 with a BUN of 44 glucose of 119. Negative LFTs, negative troponin 0.015 and a BNP of 2960 which appears his fairly baseline compared to prior visits over the past year. Repeat troponin is negative. Updated patient on findings he would very much like to return home. Discussed he can bump up his Lasix for a couple days he is very close to his baseline but with some increased shortness of breath maybe helpful. Discussed return precautions he has follow-up coming up in the next 10 days so discussed at baseline but not any worsening can follow up with primary care but if any new chest pain, shortness of breath should return. Patient feels comfortable with plan. Discharge Plan Departure Patient Disposition: Home Clinical Impression: Congestive heart failure Activity Restrictions/Additional Instructions: Your labs workup today show an elevated creatinine but at its baseline, your BNP is elevated consistent with congestive heart failure but very close to her prior visits. Take 2 tablets of your 40 mg Lasix in the morning, continue your regular 1 tablet of 40 mg Lasix in the afternoon x 3 days, then return to your normal dose. Return for new or worsening chest pain, shortness of breath, lightheadedness or passing out, increasing swelling of your extremities, fevers or other new or concerning changes. Prescriptions: No Action Eliquis 5 mg tablet 5 mg PO BID Qty: 180 3RF atorvastatin 80 mg tablet 80 mg PO BEDTIME Qty: 90 3RF carvedilol 25 mg tablet 25 mg PO BID Qty: 180 3RF Rx Instructions: must administer with a meal/food allopurinol 100 mg tablet 100 mg PO BID Qty: 60 3RF gabapentin 300 mg capsule 300 mg PO BID Qty: 180 2RF Rx Instructions: take 300 mg capsule twice a day losartan 50 mg tablet 50 mg PO DAILY Qty: 90 2RF furosemide 40 mg tablet 40 mg PO BID Qty: 180 1RF Rx Instructions: take 40 mg twice a day- for a total of 80 mg per day Jardiance 25 mg tablet 25 mg PO DAILY Qty: 90 3RF Rx Instructions: take 1/2 a tablet for 6 days. then continue one tablet per day Ozempic 0.25 mg or 0.5 mg (2 mg/3 mL) pen injector 0.5 mg SUBCUT QWEEK Qty: 3 3RF Rx Instructions: start injecting 0.5 mg per week Referrals: Alvaro Henderson, [Primary Care Provider] - Stand Alone Forms: Patient Portal/API
[2023-07-01 11:00] LABS: Add Manual Diff / Slide Review NO; Basophils Absolute Auto 100 /uL (0-100); Basophils Percent Auto 0.9 % (0-2); Eosinophils Absolute Auto 200 /uL (0-450); Eosinophils Percent Auto 2.5 % (2-4); Hematocrit 42.4 % (41-53); Hemoglobin 13.7 g/dL (13.5-17.5); Lymphocytes Absolute Auto 800 /uL (1100-4500); Lymphocytes Percent Auto 11.9 % (25-40); Mean Corpuscular HGB Conc 32.3 % (30-36); Mean Corpuscular Hemoglobin 28.5 PG (26-34); Mean Corpuscular Volume 88.2 fL (80-100); Monocytes Absolute Auto 500 /uL (0-900); Monocytes Percent Auto 7.1 % (3-14); Neutrophils Absolute Auto 5300 /uL (1500-7000); Neutrophils Percent Auto 77.6 % (50-75); Platelet Count 152 X10^3/uL (150-400); Red Blood Cell Count 4.81 X10^6/uL (4.5-5.9); Red Cell Distribution Width 16.8 % (11.6-14.8); White Blood Cell Count 6.9 X10^3/uL (4.5-11.0)
[2023-07-01 11:13] LABS: HEMOLYSIS < 15 (0-50)
[2023-07-01 11:18] LABS: Alanine Aminotransferase 24 IU/L (<50); Albumin 3.7 g/dL (3.5-5.0); Albumin Globulin Ratio 1.1 (1.0-2.8); Alkaline Phosphatase 127 U/L (38-126); Aspartate Aminotransferase 31 IU/L (17-59); BUN Creatinine Ratio 18.2 (6-22); Blood Urea Nitrogen 44 mg/dL (9-20); Calcium 9.5 mg/dL (8.4-10.2); Carbon Dioxide 26 mmol/L (22-32); Chloride 112 mmol/L (98-107); Creatine Kinase 71 U/L (55-170); Estimated Glomerular Filt Rate 29 mL/min (>60); Globulin 3.3 g/dL (1.7-4.1); Glucose 119 mg/dL (80-110); Lipase 612 U/L (23-300); Potassium 4.1 mmol/L (3.4-5.1); Sodium 143 mmol/L (137-145)
--- NOTE | 2023-07-01 11:25 | PC.NURSE ---
Pt reports chest pain the past 7 days, staying constant and not getting worse. He reports SOB and being at wound care today and had new wraps applied for his legs which are increasingly swollen, weeping, describes water blisters. Pt's provider increased his lasix form 20 to 40mg twice daily last week. Denies dizziness, lightheaded, nausea, diaphoresis.
[2023-07-01 11:41] LABS: NT-proBNP (BNP-Adult 18+) 2960 pg/mL (<125)
[2023-07-01 11:44] LABS: Troponin I 0.015 ng/mL (0.01-0.034)
[2023-07-01] MEDS: FUROSEMIDE 40 MG/4 ML VIAL IV (11:48)
[2023-07-01] MEDS: GABAPENTIN 300 MG CAPSULE PO (11:48)
[2023-07-01] MEDS: APIXABAN 5 MG TABLET PO (11:49)
[2023-07-01] MEDS: carvediloL 12.5 MG TABLET 25 MG PO (11:49)
[2023-07-01] MEDS: allopurinoL 100 MG TABLET PO (11:49)
[2023-07-01 14:23] LABS: Troponin I 0.013 ng/mL (0.01-0.034)
== END 2023-07-01 14:53 | disposition home or self-care (01) ==
PROVIDERS: Emergency Provider Emergency Medicine; PCP Family Medicine
DX: I50.9 Heart failure, unspecified (principal); R07.9 Chest pain, unspecified; R06.02 Shortness of breath; L97.812 Non-pressure chronic ulcer of other part of right lower leg with fat layer exposed; I87.2 Venous insufficiency (chronic) (peripheral); R60.0 Localized edema; E11.622 Type 2 diabetes mellitus with other skin ulcer; I48.91 Unspecified atrial fibrillation; Z79.01 Long term (current) use of anticoagulants; Z79.899 Other long term (current) drug therapy
CPT/HCPCS: 11042; 36415; 71045; 80053; 81003; 82550; 83690; 83880; 84484; 85025; 93005; 93010; 96374; 99284; J1940

== ENCOUNTER → 2023-07-08 09:11 | Outpatient (CLI) | payer MEDICARE, OTHER, SELFPAY | LOC: WC 09:11 | PROVIDERS: PCP Family Medicine; Referring Provider Family Medicine; Visit Provider Surgery | DX: I87.2 Venous insufficiency (chronic) (peripheral) (principal); R60.0 Localized edema | CPT/HCPCS: 99212; 99213 ==

== ENCOUNTER → 2023-07-09 08:57 | Outpatient (CLI) | payer MEDICARE, OTHER, SELFPAY | LOC: WC 08:58 | PROVIDERS: PCP Family Medicine; Referring Provider Family Medicine; Visit Provider Surgery | DX: I10 Essential (primary) hypertension (principal); R42 Dizziness and giddiness | CPT/HCPCS: 99212 ==

== ENCOUNTER → 2023-07-16 15:46 | Outpatient (CLI) | payer MEDICARE, OTHER, SELFPAY | PROVIDERS: PCP Family Medicine; Referring Provider Family Medicine; Visit Provider Surgery | DX: L97.821 Non-pressure chronic ulcer of other part of left lower leg limited to breakdown of skin (principal); L97.811 Non-pressure chronic ulcer of other part of right lower leg limited to breakdown of skin; I87.2 Venous insufficiency (chronic) (peripheral); R60.0 Localized edema; L53.9 Erythematous condition, unspecified; E11.622 Type 2 diabetes mellitus with other skin ulcer; I48.91 Unspecified atrial fibrillation | CPT/HCPCS: 97602; 99213 ==

== ENCOUNTER → 2023-07-23 13:09 | Outpatient (CLI) | payer MEDICARE, OTHER, SELFPAY | PROVIDERS: Family Provider Family Medicine; PCP Family Medicine; Referring Provider Family Medicine; Visit Provider Surgery | DX: L97.822 Non-pressure chronic ulcer of other part of left lower leg with fat layer exposed (principal); L97.811 Non-pressure chronic ulcer of other part of right lower leg limited to breakdown of skin; I87.2 Venous insufficiency (chronic) (peripheral); R60.0 Localized edema; L53.9 Erythematous condition, unspecified; I50.9 Heart failure, unspecified; E11.622 Type 2 diabetes mellitus with other skin ulcer; I48.91 Unspecified atrial fibrillation | CPT/HCPCS: 11042; 29581; 99213 ==

== ENCOUNTER → 2023-07-29 12:02 | Outpatient (CLI) | payer MEDICARE, OTHER, SELFPAY | LOC: WC 12:02 | PROVIDERS: Family Provider Family Medicine; PCP Family Medicine; Referring Provider Family Medicine; Visit Provider Surgery | DX: I87.2 Venous insufficiency (chronic) (peripheral) (principal); R60.0 Localized edema | CPT/HCPCS: 29581; 99213 ==

== ENCOUNTER → 2023-08-05 14:08 | Outpatient (CLI) | payer MEDICARE, OTHER, SELFPAY ==
[2023-08-05 15:40] LABS: Alanine Aminotransferase 18 IU/L (<50); Albumin 4.1 g/dL (3.5-5.0); Albumin Globulin Ratio 1.3 (1.0-2.8); Alkaline Phosphatase 140 U/L (38-126); Aspartate Aminotransferase 26 IU/L (17-59); BUN Creatinine Ratio 15.2 (6-22); Bilirubin Total 0.8 mg/dL (0.2-1.3); Blood Urea Nitrogen 39 mg/dL (9-20); Calcium 9.9 mg/dL (8.4-10.2); Carbon Dioxide 29 mmol/L (22-32); Chloride 109 mmol/L (98-107); Estimated Glomerular Filt Rate 27 mL/min (>60); Globulin 3.2 g/dL (1.7-4.1); Glucose 133 mg/dL (80-110); HEMOLYSIS < 15 (0-50); Potassium 4.1 mmol/L (3.4-5.1); Sodium 141 mmol/L (137-145); Total Protein 7.3 g/dL (6.3-8.2)
== END ==
PROVIDERS: Family Provider Family Medicine; PCP Family Medicine; Referring Provider Family Medicine; Visit Provider Family Medicine
DX: I13.0 Hypertensive heart and chronic kidney disease with heart failure and stage 1 through stage 4 chronic kidney disease, or unspecified chronic kidney disease (principal); N18.32 Chronic kidney disease, stage 3b; I50.32 Chronic diastolic (congestive) heart failure; K76.0 Fatty (change of) liver, not elsewhere classified; K74.60 Unspecified cirrhosis of liver; R18.8 Other ascites; I48.11 Longstanding persistent atrial fibrillation; E66.01 Morbid (severe) obesity due to excess calories; I87.2 Venous insufficiency (chronic) (peripheral); E11.628 Type 2 diabetes mellitus with other skin complications; I48.91 Unspecified atrial fibrillation
CPT/HCPCS: 36415; 80053; 99212

== ENCOUNTER → 2023-08-05 14:16 | Outpatient (CLI) | payer MEDICARE, OTHER, SELFPAY | PROVIDERS: Family Provider Family Medicine; PCP Family Medicine; Referring Provider Family Medicine; Visit Provider Surgery | DX: R60.0 Localized edema (principal); I87.2 Venous insufficiency (chronic) (peripheral); E11.628 Type 2 diabetes mellitus with other skin complications; I48.91 Unspecified atrial fibrillation | CPT/HCPCS: 99212; 99213 ==

== ENCOUNTER → 2023-08-07 09:39 | Outpatient (CLI) | payer MEDICARE, OTHER, SELFPAY ==
--- NOTE | 2023-08-07 09:41 | DI.CT.S_ITS ---
PROCEDURE: CT ABDOMEN PELVIS WO CON INDICATIONS: Pancreatits, elevated lipase TECHNIQUE: Axial sections were acquired from the lung bases to the pubic symphysis. Coronal and sagittal reformats were performed. For radiation dose reduction, the following was used: automated exposure control, adjustment of mA and/or kV according to patient size. COMPARISON: None. FINDINGS: Image quality: Diagnostic. Lower Chest: [id number] right pleural effusion with minimal associated right basilar atelectasis. Mild cardiomegaly. Minimal pericardial effusion. URINARY: Right Kidney: No stones or hydronephrosis. Right Ureter: No hydroureter. Left Kidney: 2 mm nonobstructing middle pole stone. No hydronephrosis. Left Ureter: No hydroureter. Bladder: Normal wall thickness. No stones. ABDOMEN: Liver: No contour-deforming solid mass. Gallbladder: No radiopaque gallstones or wall thickening. Biliary ducts: No biliary dilation. Pancreas: No ductal dilation. Parenchymal pattern of the pancreas is within normal limits Spleen: Size is within normal limits. Adrenal Glands: No adrenal nodules. Stomach and Bowel: Normal colonic caliber, without significant wall thickening. Peritoneum: Mild ascites. No free air. Ventral Wall: No hernia. Abdominal Nodes: No enlarged retroperitoneal or mesenteric lymph nodes. Vessels: Aorta and inferior vena cava are normal in size. PELVIS: Pelvic Organs: Unremarkable. Pelvic Nodes: Unremarkable. Miscellaneous: Small fat containing right inguinal hernia. Bones: Lumbar degenerative change. No lytic or blastic bony lesions. No compression fractures. IMPRESSION: 1. [id number] right pleural effusion with minimal compressive right basilar atelectasis. 2. Mild cardiomegaly. 3. 2 mm nonobstructing left renal stone. 4. Mild abdominal ascites. 5. Small fat containing right inguinal hernia. 6. No noncontrast CT evidence of acute pancreatitis. Dictated by: Bryan Barragan M.D. on 08/07/2023 at 12:31 Approved by: Bryan Barragan M.D. on 08/07/2023 at 12:34
== END ==
LOC: CT 09:41
PROVIDERS: Family Provider Family Medicine; PCP Family Medicine; Referring Provider Family Medicine; Visit Provider Family Medicine
DX: K85.90 Acute pancreatitis without necrosis or infection, unspecified (principal); J90 Pleural effusion, not elsewhere classified; I51.7 Cardiomegaly; N20.0 Calculus of kidney; K40.90 Unilateral inguinal hernia, without obstruction or gangrene, not specified as recurrent; R18.8 Other ascites
CPT/HCPCS: 74176

== ENCOUNTER → 2023-08-14 08:56 | Outpatient (CLI) | payer MEDICARE, OTHER, SELFPAY | PROVIDERS: Family Provider Family Medicine; PCP Family Medicine; Referring Provider Family Medicine; Visit Provider Surgery | DX: L97.812 Non-pressure chronic ulcer of other part of right lower leg with fat layer exposed (principal); L97.822 Non-pressure chronic ulcer of other part of left lower leg with fat layer exposed; I87.2 Venous insufficiency (chronic) (peripheral); R60.0 Localized edema; L53.9 Erythematous condition, unspecified; E11.622 Type 2 diabetes mellitus with other skin ulcer; I48.91 Unspecified atrial fibrillation | CPT/HCPCS: 11042 ==

== ENCOUNTER → 2023-08-21 13:23 | Outpatient (CLI) | payer MEDICARE, OTHER, SELFPAY | PROVIDERS: Family Provider Family Medicine; PCP Family Medicine; Referring Provider Family Medicine; Visit Provider Surgery | DX: L97.812 Non-pressure chronic ulcer of other part of right lower leg with fat layer exposed (principal); I87.2 Venous insufficiency (chronic) (peripheral); R60.0 Localized edema; L53.9 Erythematous condition, unspecified; E11.622 Type 2 diabetes mellitus with other skin ulcer; I50.9 Heart failure, unspecified; I48.91 Unspecified atrial fibrillation | CPT/HCPCS: 29581; 97602; 99213 ==

== ENCOUNTER → 2023-08-30 08:32 | Outpatient (CLI) | payer MEDICARE, OTHER, SELFPAY | LOC: WC 08:34 | PROVIDERS: Family Provider Family Medicine; PCP Family Medicine; Referring Provider Family Medicine; Visit Provider Surgery | DX: I87.2 Venous insufficiency (chronic) (peripheral) (principal); R60.0 Localized edema | CPT/HCPCS: 99212; 99213 ==

== ENCOUNTER → 2023-10-01 14:23 | Outpatient (CLI) | payer MEDICARE, OTHER, SELFPAY | PROVIDERS: Family Provider Family Medicine; PCP Family Medicine; Referring Provider Family Medicine; Visit Provider Surgery | DX: L97.812 Non-pressure chronic ulcer of other part of right lower leg with fat layer exposed (principal); L97.822 Non-pressure chronic ulcer of other part of left lower leg with fat layer exposed; I87.2 Venous insufficiency (chronic) (peripheral); R60.0 Localized edema; L53.9 Erythematous condition, unspecified; I50.9 Heart failure, unspecified; I48.91 Unspecified atrial fibrillation; Z79.2 Long term (current) use of antibiotics | CPT/HCPCS: 11042; 87070; 87075; 87205; 99213 ==

== ENCOUNTER → 2023-10-08 14:13 | Outpatient (CLI) | payer MEDICARE, OTHER, SELFPAY | PROVIDERS: Family Provider Family Medicine; PCP Family Medicine; Referring Provider Family Medicine; Visit Provider Surgery | DX: L97.812 Non-pressure chronic ulcer of other part of right lower leg with fat layer exposed (principal); L97.822 Non-pressure chronic ulcer of other part of left lower leg with fat layer exposed; I87.2 Venous insufficiency (chronic) (peripheral); E11.622 Type 2 diabetes mellitus with other skin ulcer; I48.91 Unspecified atrial fibrillation; L53.9 Erythematous condition, unspecified; R60.0 Localized edema | CPT/HCPCS: 29581; 99213 ==

== ENCOUNTER → 2023-10-15 14:40 | Outpatient (CLI) | payer MEDICARE, OTHER, SELFPAY | LOC: WC 14:41 | PROVIDERS: Family Provider Family Medicine; PCP Family Medicine; Referring Provider Family Medicine; Visit Provider Surgery | DX: Z09 Encounter for follow-up examination after completed treatment for conditions other than malignant neoplasm (principal); Z87.2 Personal history of diseases of the skin and subcutaneous tissue; L97.812 Non-pressure chronic ulcer of other part of right lower leg with fat layer exposed; L97.822 Non-pressure chronic ulcer of other part of left lower leg with fat layer exposed; I87.2 Venous insufficiency (chronic) (peripheral) | CPT/HCPCS: 99212; 99213 ==

== ENCOUNTER → 2023-12-05 09:50 | Outpatient (CLI) | payer MEDICARE, OTHER, SELFPAY ==
[2023-12-05 11:36] LABS: Alanine Aminotransferase 27 IU/L (<50); Albumin 3.6 g/dL (3.5-5.0); Albumin Globulin Ratio 1.1 (1.0-2.8); Alkaline Phosphatase 95 U/L (38-126); Aspartate Aminotransferase 33 IU/L (17-59); BUN Creatinine Ratio 20.7 (6-22); Bilirubin Total 0.7 mg/dL (0.2-1.3); Blood Urea Nitrogen 59 mg/dL (9-20); Calcium 10.2 mg/dL (8.4-10.2); Carbon Dioxide 26 mmol/L (22-32); Chloride 107 mmol/L (98-107); Estimated Glomerular Filt Rate 24 mL/min (>60); Globulin 3.2 g/dL (1.7-4.1); Glucose 116 mg/dL (80-110); HEMOLYSIS < 15 (0-50); Potassium 4.4 mmol/L (3.4-5.1); Sodium 139 mmol/L (137-145); Total Protein 6.8 g/dL (6.3-8.2)
[2023-12-05 11:43] LABS: NT-proBNP (BNP-Adult 18+) 2690 pg/mL (<125)
[2023-12-05 11:45] LABS: Hemoglobin A1C% w Est Avg Glu 6.6 % (4.0-6.0)
[2023-12-05 12:10] LABS: TSH w/ Reflex to FT4 3.89 uIU/mL (0.47-4.68)
== END ==
PROVIDERS: Family Provider Family Medicine; PCP Family Medicine; Referring Provider Family Medicine; Visit Provider Family Medicine
DX: E11.9 Type 2 diabetes mellitus without complications; I50.32 Chronic diastolic (congestive) heart failure; K76.0 Fatty (change of) liver, not elsewhere classified; K74.60 Unspecified cirrhosis of liver; E11.69 Type 2 diabetes mellitus with other specified complication; E78.5 Hyperlipidemia, unspecified; N18.32 Chronic kidney disease, stage 3b; I48.91 Unspecified atrial fibrillation
CPT/HCPCS: 36415; 80053; 83036; 83880; 84443

== ENCOUNTER → 2023-12-27 08:13 | Outpatient (CLI) | payer MEDICARE, OTHER, SELFPAY | PROVIDERS: Family Provider Family Medicine; PCP Family Medicine; Referring Provider Family Medicine; Visit Provider Physician Assistant | DX: L97.812 Non-pressure chronic ulcer of other part of right lower leg with fat layer exposed (principal); L97.822 Non-pressure chronic ulcer of other part of left lower leg with fat layer exposed; I87.2 Venous insufficiency (chronic) (peripheral); R60.0 Localized edema; L53.9 Erythematous condition, unspecified; I50.9 Heart failure, unspecified | CPT/HCPCS: 99213; 99214 ==

== ENCOUNTER → 2024-01-07 10:09 | Outpatient (CLI) | payer MEDICARE, OTHER, SELFPAY | PROVIDERS: Family Provider Family Medicine; PCP Family Medicine; Referring Provider Family Medicine; Visit Provider Surgery | DX: L97.812 Non-pressure chronic ulcer of other part of right lower leg with fat layer exposed (principal); I87.2 Venous insufficiency (chronic) (peripheral); R60.0 Localized edema; L53.9 Erythematous condition, unspecified; R23.3 Spontaneous ecchymoses | CPT/HCPCS: 11042; 11045 ==

== ENCOUNTER 2024-01-07 10:31 | Emergency (ER) | payer MEDICARE, OTHER, SELFPAY ==
[2024-01-07 10:32] VITALS: BP 167/93; PULSE 53; RESP 15; TEMP 36.5; O2SAT 98; BMI 43.0
--- NOTE | 2024-01-07 10:46 | DI.RAD.S_ITS ---
PROCEDURE: XR FOOT RT MIN 3V INDICATIONS: desk fell on pts foot TECHNIQUE: 3 views of the foot were acquired. COMPARISON: None. FINDINGS: Bones: No acute fracture or dislocation. Hallux valgus deformity involving the MTP joint of the great toe. Joint spaces of the right foot appear unremarkable. No suspicious bony lesions. Soft tissues: Soft tissue swelling overlying the dorsum of the right foot. No radiopaque foreign body. IMPRESSION: Soft tissue swelling without acute osseous abnormality. Dictated by: Robbi Gordon M.D. on 01/07/2024 at 11:00 Approved by: Robbi Gordon M.D. on 01/07/2024 at 11:03
--- NOTE | 2024-01-07 11:19 | ED_ITS ---
<Statement entered by Nadeem Das DO - 01/07/24 15:01> Dr. Das: I was immediately available in the department for consultation. Documentation has been reviewed. I agree with assessment and plan. HPI - Extremity Injury (Lower) General Chief Complaint: Extremity Injury, Lower Stated Complaint: Desk fell on right leg Time Seen by Provider: 01/07/24 11:06 Source: patient Mode of arrival: Ambulatory History of Present Illness HPI Narrative: 63-year-old male presents to the ED due to concern for a fracture in his right foot. Patient states that a desk fell and slid down his right lower leg onto his foot. This happened 2 weeks ago. Patient states that he has been seeing wound care, has a wound that has been dressed and covered up on the right lower carrasco. Patient unable to state if the wound was sustained as part of this injury 2 weeks ago. Patient refuses to have the dressing taken off or have further examination. Patient states the only thing he would like to know is if he has a fracture in his foot. Patient is unable to provide other history. Related Data Previous Rx's Medication Instructions Recorded semaglutide 0.25 mg or 0.5 mg (2 0.5 mg (0.736 mL) SUBCUT QWEEK #3 06/06/23 mg/3 mL) subcutaneous pen injector mL (Ozempic) losartan 50 mg tablet 50 mg PO BID #180 tabs 07/11/23 allopurinol 100 mg tablet 100 mg PO BID #180 tabs 07/24/23 chlorthalidone 25 mg tablet 25 mg PO DAILY #90 tabs 12/19/23 furosemide 20 mg tablet 20 mg PO BID #180 tabs 12/19/23 gabapentin 300 mg capsule 300 mg PO BID #180 caps 12/19/23 apixaban 5 mg tablet (Eliquis) 5 mg PO BID #180 tabs 12/20/23 atorvastatin 80 mg tablet 80 mg PO BEDTIME #90 tabs 12/20/23 carvedilol 25 mg tablet 25 mg PO BID #180 tabs 12/20/23 empagliflozin 25 mg tablet 25 mg PO DAILY #90 tabs 12/20/23 (Jardiance) Allergies Allergy/AdvReac Type Severity Reaction Status Date / Time nitroglycerin Allergy Intermediate increases Verified 01/07/24 10:46 bp hydrochlorothiazide Allergy Mild acute Verified 01/07/24 10:46 renal failure aspirin [ASPIRIN] AdvReac Severe IN ACUTE Verified 01/07/24 10:46 RENAL FAILURE ibuprofen [From MOTRIN] AdvReac Severe IN ACUTE Verified 01/07/24 10:46 RENAL lisinopril [LISINOPRIL] AdvReac Unknown COUGH Verified 01/07/24 10:46 Review of Systems Constitutional Constitutional: Denies chills, Denies fatigue, Denies fever(s), Denies frequent falls, Denies lethargy and Denies weakness Eyes Eyes: Denies change in vision, Denies eye discharge, Denies irritation and Denies loss of vision ENT Ears, Nose, Mouth, and Throat: Denies change in voice, Denies dizziness, Denies neck pain, Denies sore throat and Denies throat swelling Cardiovascular Cardiovascular: Denies chest pain, Denies irregular heart rhythm, Denies lightheadedness, Denies palpitations, Denies dyspnea, Denies dyspnea on exertion and Denies orthopnea Respiratory Respiratory: Denies cough, Denies dyspnea, Denies dyspnea on exertion and Denies wheezing Gastrointestinal Gastrointestinal: Denies abdominal pain, Denies change in bowel habits, Denies diarrhea, Denies nausea and Denies vomiting Musculoskeletal Musculoskeletal: Denies neck pain and Denies numbness Comments: Right foot pain Integumentary/Breasts Skin/Breast: Denies pruritus, Denies erythema, Denies rash and Denies wounds Neurologic Neurologic: Denies behavioral changes, Denies confusion, Denies dizziness, Denies frequent falls, Denies loss of vision, Denies numbness and Denies weakness Psychiatric Psychiatric: Denies anxiety, Denies behavioral changes, Denies confusion, Denies depression, Denies homicidal ideation and Denies suicidal ideation Endocrine Endocrine: Denies fatigue, Denies flushing and Denies palpitations Hematologic/Lymphatic Hematologic/Lymphatic: Denies easy bruising Allergic/Immunologic Allergic/Immunologic: Denies urticaria, Denies throat swelling and Denies wheezing Patient History Medical History Steatosis of liver Cirrhosis Elevated lipase Leg wound, right Myocardial infarction Atrial fibrillation Hypertension Port-wine stain of face Chronic heart failure with preserved ejection fraction (HFpEF) Tinea pedis Anxiety Gouty arthritis Social History household members: spouse Smoking Status: Never smoker alcohol intake: current Smoking Status: Never smoker alcohol intake frequency: holidays/special occasions only Substance Use Type: does not use Exam Narrative Exam Narrative: Const General:?cooperative, healthy appearing and comfortable HENMT Head:?normal to inspection Ears:?hearing grossly normal bilaterally Nose:?external nose normal Face and sinus:?normal facial exam and sinuses nontender Mouth:?oral mucosae normal Throat:?posterior oropharynx normal Eyes General:?appearance normal, both eyes and all related structures Neck Neck:?normal visual inspection and no lymphadenopathy noted Resp Effort & Inspection:?normal respiratory effort Auscultation:?clear to auscultation bilaterally Cardio Rate:?regular rate Rhythm:?regular rhythm Musculoskeletal/integumentary There is a dressed wound to the lower right carrasco. Right lower foot appears slightly swollen compared to the left foot. Patient refused further examination. Neuro General:?patient alert, patient awake and patient oriented x3 Initial Vital Signs Initial Vital Signs: Vital Signs Temperature 97.7 F 01/07/24 10:32 Pulse Rate 53 L 01/07/24 10:32 Respiratory Rate 15 01/07/24 10:32 Blood Pressure 167/93 H 01/07/24 10:32 Pulse Oximetry 98 01/07/24 10:32 Oxygen Delivery Method Room Air 01/07/24 10:32 Course Orders Ordered: ED Orders 01/07/24 10:46 XR foot RT min 3V Stat Vital Signs Vital signs: Vital Signs - 8 hr 01/07/24 10:32 Temperature 97.7 F Pulse Rate 53 L Respiratory Rate 15 Blood Pressure 167/93 H Pulse Oximetry 98 Oxygen Delivery Method Room Air MDM - Extremity Injury (Lower) MDM Narrative Medical decision making narrative: 63-year-old male presents to the ED due to concern for a fracture in his right foot. Patient states that a desk fell and slid down his right lower leg onto his foot. It appears that patient was seen by wound care this morning and sent to the ED for evaluation of the right foot to rule out a fracture. X-ray of the foot was obtained which shows no fractures. Results discussed with patient and discharged home. ED return precautions discussed with patient. Patient verbalized understanding. Medical records reviewed: Yes Discharge Plan Departure Patient Disposition: Home Clinical Impression: Foot injury Qualifiers: Encounter type: initial encounter Laterality: right Qualified Code(s): S99.921A - Unspecified injury of right foot, initial encounter Instructions: DI for Foot Pain Activity Restrictions/Additional Instructions: You were evaluated in the ED today for a right foot injury. Your x-ray was normal. Please follow-up with your foreclosure specialist and your PCP as soon as possible. Return to the ED if you have worsening symptoms, numbness, tingling, weakness, chest pain, shortness of breath. Prescriptions: No Action allopurinol 100 mg tablet 100 mg PO BID Qty: 180 3RF furosemide 20 mg tablet 20 mg PO BID Qty: 180 0RF gabapentin 300 mg capsule 300 mg PO BID Qty: 180 2RF Rx Instructions: take 300 mg capsule twice a day chlorthalidone 25 mg tablet 25 mg PO DAILY Qty: 90 3RF Rx Instructions: take at lunch time Eliquis 5 mg tablet 5 mg PO BID Qty: 180 3RF atorvastatin 80 mg tablet 80 mg PO BEDTIME Qty: 90 3RF carvedilol 25 mg tablet 25 mg PO BID Qty: 180 3RF Rx Instructions: must administer with a meal/food Jardiance 25 mg tablet 25 mg PO DAILY Qty: 90 3RF Rx Instructions: take 1/2 a tablet for 6 days. then continue one tablet per day Ozempic 0.25 mg or 0.5 mg (2 mg/3 mL) pen injector 0.5 mg SUBCUT QWEEK Qty: 3 3RF Rx Instructions: start injecting 0.5 mg per week losartan 50 mg tablet 50 mg PO BID Qty: 180 2RF Rx Instructions: start taking twice a day Referrals: Alvaro Henderson, [Primary Care Provider] - Stand Alone Forms: Patient Portal/API
--- NOTE | 2024-01-07 11:35 | PC.NURSE ---
Addendum entered by Marivel Joseph R.N. 01/07/24 11:38: Pt agreed to astronomy teacher of right foot. Pt refused wound assessment on right LE and stated you will not take off the dressing from wound care. Pt refusing to answer questions regarding wound. Original Note: Pt verbally aggressive with RN and PA. Refused PA examination and astronomy teacher.
== END 2024-01-07 11:54 | disposition home or self-care (01) ==
PROVIDERS: Emergency Provider Student in an Organized Health Care Education/Training Program; Family Provider Family Medicine; PCP Family Medicine
DX: S99.921A Unspecified injury of right foot, initial encounter (principal); W20.8XXA Other cause of strike by thrown, projected or falling object, initial encounter
CPT/HCPCS: 73630; 99283

== ENCOUNTER → 2024-01-15 09:08 | Outpatient (CLI) | payer MEDICARE, OTHER, SELFPAY | LOC: WC 09:09 | PROVIDERS: Family Provider Family Medicine; PCP Family Medicine; Referring Provider Family Medicine; Visit Provider Surgery | DX: L97.812 Non-pressure chronic ulcer of other part of right lower leg with fat layer exposed (principal); I87.2 Venous insufficiency (chronic) (peripheral); L53.9 Erythematous condition, unspecified; R60.0 Localized edema; E11.622 Type 2 diabetes mellitus with other skin ulcer | CPT/HCPCS: 11042; 11045 ==

== ENCOUNTER → 2024-01-30 10:12 | Outpatient (CLI) | payer MEDICARE, OTHER, SELFPAY | PROVIDERS: Family Provider Family Medicine; PCP Family Medicine; Referring Provider Family Medicine; Visit Provider Surgery | DX: I87.2 Venous insufficiency (chronic) (peripheral) (principal); L97.812 Non-pressure chronic ulcer of other part of right lower leg with fat layer exposed; R60.0 Localized edema; L53.8 Other specified erythematous conditions; L98.8 Other specified disorders of the skin and subcutaneous tissue | CPT/HCPCS: 97602; 99213 ==

== ENCOUNTER → 2024-02-12 10:37 | Outpatient (CLI) | payer MEDICARE, OTHER, SELFPAY | PROVIDERS: Family Provider Family Medicine; PCP Family Medicine; Referring Provider Family Medicine; Visit Provider Surgery | DX: L97.812 Non-pressure chronic ulcer of other part of right lower leg with fat layer exposed (principal); I87.2 Venous insufficiency (chronic) (peripheral); R60.0 Localized edema; L53.9 Erythematous condition, unspecified; E11.622 Type 2 diabetes mellitus with other skin ulcer | CPT/HCPCS: 11042 ==